=== PATIENT | female | born 1940 | race Caucasian/White ===

== ENCOUNTER 2016-07-23 12:18 | Emergency (ER) | payer MEDICARE ==
[2016-07-23] MEDS ORDERED: DUONEB 0.5-3 MG/3 ml Neb IH ONE ×2 (12:34→12:40)
--- NOTE | 2016-07-23 12:44 | ERPHSYRPT ---
- History of Present Illness Time Seen by Provider: 07/23/16 12:30 Source: patient Exam Limitations: clinical condition Patient Subjective Stated Complaint: PT REPORTS HER COPD BEGAN ACTING UP THIS AM -REPORTS INCREASED SOB-DENIES FEVER-STATES SHE HAS HEAVINESS IN HER CHEST WHEN SHE ATTEMPTS TO DEEP BREATH Triage Nursing Assessment: PT PINK WARM ET DRY-SLIGHT RETRATRACTIONS NOTED- TIGHT WHEEZES NOTED-NO COUGH NOTED-INCREASED WORK OF BREATHING NOTED WITH AMBULATION TO ED ROOM Physician History: PATIENT COMPLAINS OF DYSPNEA, X 2 DAYS, CHEST HEAVINESS UPON INSPIRATION. DENIES FEVER, CHILLS. HAS OCCASIONAL COUGH. Timing/Duration: yesterday Activities at Onset: activity Severity of Dyspnea-Max: moderate Severity of Dyspnea-Current: moderate Possible Cause: occasional episodes Modifying Factors: Improves With: activity Associated Symptoms: constant, cough (pain upon inspiration) International travel in last 2 weeks: No Allergies/Adverse Reactions: cephalexin monohydrate [From Keflex] Allergy (Mild, Verified 07/23/16 12:38) Nausea oxycodone HCl [From OxyContin] Allergy (Mild, Verified 07/23/16 12:38) Nausea and Vomiting DIZZY codeine Allergy (Verified 07/23/16 12:38) Nausea and Vomiting iodine Allergy (Verified 07/23/16 12:38) Home Medications: Albuterol Sulfate [Proair Hfa] 2 puffs IH Q2H/PRN PRN 01/29/16 [History] Cetirizine HCl 10 mg PO DAILY 01/29/16 [History] Fluticasone/Vilanterol [Breo Ellipta 100-25 Mcg INH] 1 each IH DAILY 01/29/16 [ History] Lorazepam 0.5 mg [Ativan 0.5 MG] 0.5 mg PO BID PRN 01/29/16 [History] Potassium Chloride 20 meq PO BID 01/29/16 [History] Hydrochlorothiazide 25 mg [hydroDIURIL 25 MG] 25 mg PO DAILY 05/31/16 [ History] Omeprazole 20 MG [Prilosec 20 mg] 20 mg PO DAILY 07/23/16 [History] Hx Tetanus, Diphtheria Vaccination/Date Given: Yes Hx Influenza Vaccination/Date Given: Yes Hx Pneumococcal Vaccination/Date Given: Yes Immunizations Up to Date: Yes - Review of Systems Constitutional: No Fever, No Chills Eyes: No Symptoms Ears, Nose, & Throat: No Symptoms Respiratory: Cough, Dyspnea Cardiac: No Symptoms, No Chest Pain, No Edema, No Syncope Abdominal/Gastrointestinal: No Symptoms, No Abdominal Pain, No Nausea, No Vomiting, No Diarrhea Genitourinary Symptoms: No Symptoms, No Dysuria Musculoskeletal: No Symptoms, No Back Pain, No Neck Pain Skin: No Symptoms, No Rash Neurological: No Symptoms, No Dizziness, No Focal Weakness, No Sensory Changes Psychological: No Symptoms Endocrine: No Symptoms All Other Systems: Reviewed and Negative - Past Medical History Pertinent Past Medical History: Yes Neurological History: No Pertinent History ENT History: No Pertinent History Cardiac History: No Pertinent History Respiratory History: Asthma, COPD Endocrine Medical History: No Pertinent History Musculoskeletal History: Rheumatoid Arthritis, Other GI Medical History: GERD, Hernia, Other History: No Pertinent History Psycho-Social History: Anxiety Female Reproductive Disorders: No Pertinent History Other Medical History: Hiatal Hernia, History of backpain, scitica pain - Past Surgical History Past Surgical History: Yes Neuro Surgical History: No Pertinent History Cardiac: No Pertinent History Respiratory: No Pertinent History Gastrointestinal: No Pertinent History Genitourinary: No Pertinent History Musculoskeletal: Orthopedic Surgery Female Surgical History: Hysterectomy Other Surgical History: trigger finger, orif of left knee cap, HIATAL HERNIA, in [facility] in October for COPD,bronchitis , pneumonia. Thyroidectomy (left olobe) - Social History Smoking Status: Former smoker How long have you smoked: 1 Exposure to second hand smoke: No Alcohol Use: None Drug Use: none Patient Lives Alone: No Significant Family History: no pertinent family hx - Female History Hx Now: No - Nursing Vital Signs Nursing Vital Signs: Initial Vital Signs Pulse Rate 70 Respiratory Rate 16 Blood Pressure 128/67 Pain Intensity 0 - Physical Exam General Appearance: no apparent distress, alert Eye Exam: PERRL/EOMI Ears, Nose, Throat Exam: hearing grossly normal Neck Exam: normal inspection, supple Respiratory Exam: diminished breath sounds (no wheezes or rhonchi) Cardiovascular/Chest Exam: normal heart sounds, regular rate/rhythm Abdominal/Gastrointestinal Exam: soft, No tenderness, No distention, No mass Extremity Exam: non-tender, normal range of motion, normal inspection, no calf tenderness, no pedal edema Peripheral Pulses Exam: carotid (R): 2+, carotid (L): 2+, femoral (R): 2+, femoral (L): 2+, dorsalis-pedis (R): 2+, dorsalis-pedis (L): 2+ Neurologic Exam: alert, oriented x 3, cooperative, group art supervisor II-XII nml as tested, sensation nml, No motor deficits Skin Exam: normal color, warm, No dry SpO2 Interpretation: normal SpO2: 99 Oxygen Delivery: Room Air - Course EKG Interpreted by Me: RATE, Sinus Tach, NORMAL AXIS, Non-specific ST Changes - Radiology Exams Chest X-ray Interpretation: Negative, No Infiltrates Ordered Tests: Active Orders 24 hr Category Date Time Status Plate Preparer STAT Care 07/23/16 12:40 Active EKG-ER Only STAT Care 07/23/16 12:40 Active IV Insertion STAT Care 07/23/16 12:40 Active Oxygen-ED Only NASAL CANNULA 2 lpm Care 07/23/16 12:40 Active CHEST 1 VIEW (PORTABLE) Stat Exams 07/23/16 12:41 Completed BLOOD CULTURE Stat Lab 07/23/16 12:55 Received BMP Stat Lab 07/23/16 12:30 Completed CBC W DIFF Stat Lab 07/23/16 12:30 Completed TROPONIN Stat Lab 07/23/16 12:30 Completed Peak Expiratory Flow Rate ONCE RT 07/23/16 12:49 Completed Respiratory Nebulizer STAT RT 07/23/16 12:43 Completed Medication Summary Generic Name Dose Route Start Last Admin Trade Name Freq PRN Reason Stop Dose Admin Sodium Chloride 1,000 mls @ 100 mls/hr 07/23/16 12:45 07/23/16 12:51 Sodium Chloride 0.9% 1000 Ml IV 08/22/16 12:44 100 mls/hr .Q10H PRISCILLA Administration Discontinued Medications Generic Name Dose Route Start Last Admin Trade Name Freq PRN Reason Stop Dose Admin Albuterol/Ipratropium Confirm 07/23/16 12:34 Duoneb 0.5-3 Mg/3 Ml Neb Administered 07/23/16 12:35 Dose 3 ml IH .STK-MED ONE Albuterol/Ipratropium 3 ml 07/23/16 12:40 07/23/16 12:47 Duoneb 0.5-3 Mg/3 Ml Neb IH 07/23/16 12:41 3 ml STAT ONE Administration Sodium Chloride Confirm 07/23/16 12:48 Sodium Chloride 0.9% 1000 Ml Administered 07/23/16 12:49 Dose 1,000 mls @ ud .ROUTE .STK-MED ONE Levofloxacin/Dextrose 100 mls @ 100 mls/hr 07/23/16 13:42 07/23/16 13:52 Levaquin 500mg/100ml D5w IV 07/23/16 14:41 100 mls/hr STAT ONE Administration Levofloxacin/Dextrose Confirm 07/23/16 13:47 Levaquin 500mg/100ml D5w Administered 07/23/16 13:48 Dose 100 mls @ ud IV .STK-MED ONE Methylprednisolone Sodium Succinate 125 mg 07/23/16 13:42 07/23/16 13:53 Solu-Medrol 125 Mg IV 07/23/16 13:43 125 mg STAT ONE Administration Methylprednisolone Sodium Succinate Confirm 07/23/16 13:47 Solu-Medrol 125 Mg Administered 07/23/16 13:48 Dose 125 mg .ROUTE .STK-MED ONE Lab/Rad Data: Laboratory Result Diagrams 07/23/16 12:30 07/23/16 12:30 Laboratory Results 07/23/16 07/23/16 Range/Units 12:30 12:30 WBC 6.5 (4.0-10.5) K/mm3 RBC 4.89 (4.1-5.4) M/mm3 Hgb 14.4 (12.0-16.0) gm/dl Hct 41.5 (35-47) % MCV 84.9 (78-100) fl MCH 29.4 (26-32) pg MCHC 34.7 (32-36) g/dl RDW 12.8 (11.5-14.0) % Plt Count 213 (150-450) K/mm3 MPV 10.7 H (6-9.5) fl Gran % 65.8 (36.0-66.0) % Lymphocytes % 19.7 L (24.0-44.0) % Monocytes % 11.5 (0.0-12.0) % Eosinophils % 2.8 (0.00-5.0) % Basophils % 0.2 (0.0-0.4) % Basophils # 0.01 (0-0.4) Sodium 139 (136-145) mEq/L Potassium 3.4 L (3.5-5.1) mEq/L Chloride 101 (98-107) mEq/L Carbon Dioxide 29.4 (21-32) mEq/L Anion Gap 12.0 (5-15) MEQ/L BUN 16 (9-20) mg/dL Creatinine 0.79 (0.55-1.30) mg/dl Estimated GFR > 60 ML/MIN Glucose 121 H (70-110) MG/DL Calcium 9.4 (8.5-10.1) mg/dL Troponin I < 0.017 (0.000-0.056) ng/ml - Progress Progress: improved Progress Note: 07/23/16 15:01 IV NORMAL SALINE 100ML/HR, DUONEB AEROSOL TX, LEVAQUIN 500MG IVPB, INITIALLY REFUSED SOLUMEDROL 125MG IV Blood Culture(s) Obtained: Yes Antibiotics given: Yes (levaquin 500mg IVPB) Counseled pt/family regarding: lab results, diagnosis, need for follow-up, rad results - Departure Time of Disposition: 15:10 Departure Disposition: Home Clinical Impression: EXACERBATION COPD Condition: Stable Critical Care Time: No Additional Instructions: PREDNISONE 40MG DAILY FOR 4 DAYS. ANTIBIOTIC LEVAQUIN 500MG DAILY FOR 10 DAYS. CONTINUE AEROSOL TREATMENTS EVERY 4 HOURS NEEDED. CONSULT YOUR FAMILY PHYSICIAN IN 4-6 DAYS FOR EVALUATION Prescriptions: Levofloxacin [Levaquin] 500 mg PO DAILY #10 tablet Prednisone 20 mg [Deltasone 20 mg] 20 tablet PO DAILY #8 tablet
[2016-07-23] MEDS ORDERED: Sodium Chloride 0.9% 1000 ML 1,000 ML IV SCH (12:45)
[2016-07-23] MEDS ORDERED: Sodium Chloride 0.9% 1000 ML 1,000 ML ONE (12:48)
--- NOTE | 2016-07-23 12:58 | XRAY ---
Indication: Cough Comparison: June 01, 2016 Portable chest again demonstrates a few calcified granulomas. Remaining heart and lungs normal. Bony thorax intact again with mild osteopenia and degenerative changes. Impression: Stable nonacute chest with chronic features.
[2016-07-23 13:01] LABS: BASOPHIL % 0.2 % (0.0-0.4); Eosinophil % 2.8 % (0.00-5.0); Granulocytes % 65.8 % (36.0-66.0); Lymphocytes % 19.7 % (24.0-44.0); Mean Cell Volume 84.9 fl (78-100); Mean Corpuscular Hemoglobin 29.4 pg (26-32); Mean Platelet Volume 10.7 fl (6-9.5); Monocytes % 11.5 % (0.0-12.0); Platelet Count 213 K/mm3 (150-450); Red Blood Count 4.89 M/mm3 (4.1-5.4); Red Cell Distribution Width 12.8 % (11.5-14.0); White Blood Count 6.5 K/mm3 (4.0-10.5)
[2016-07-23 13:36] LABS: BLOOD UREA NITROGEN 16 mg/dL (9-20); CHLORIDE 101 mEq/L (98-107); Carbon Dioxide 29.4 mEq/L (21-32); Glucose 121 MG/DL (70-110); Potassium 3.4 mEq/L (3.5-5.1); SODIUM 139 mEq/L (136-145)
[2016-07-23] MEDS ORDERED: solu-MEDROL 125 MG IV ONE (13:42)
[2016-07-23] MEDS ORDERED: Levaquin 500MG/100ML D5W 100 ML IV ONE ×2 (13:42→13:47)
[2016-07-23] MEDS ORDERED: solu-MEDROL 125 MG ONE (13:47)
[2016-07-23 14:01] LABS: TROPONIN < 0.017 ng/ml (0.000-0.056)
[2016-07-23 15:45] VITALS: BP 124/62; PULSE 76; O2SAT 98
== END 2016-07-23 15:46 | disposition home or self-care (01) ==
LOC: ED 12:18
DX: J44.1 Chronic obstructive pulmonary disease with (acute) exacerbation (principal); R07.89 Other chest pain; R05 Cough; R06.02 Shortness of breath; Z79.899 Other long term (current) drug therapy
CPT/HCPCS: 36000; 36415; 71010; 80048; 84484; 85025; 87040; 93005; 93041; 94150; 94640; 96360; 96361; 96365; 96374; 99283; J1956; J2930

== ENCOUNTER 2016-07-31 20:27 | Emergency (ER) | payer MEDICARE ==
[2016-07-31] MEDS ORDERED: Zithromax 500 MG/ 250 ML NaCl Premix 250 ML IV ONE (20:29)
[2016-07-31] MEDS ORDERED: Xopenex 1.25 MG/0.5 ML UD NEBULE IH ONE ×2 (20:29→20:44)
[2016-07-31] MEDS ORDERED: Sodium Chloride 0.9% 1000 ML 1,000 ML IV SCH (20:30)
[2016-07-31] MEDS ORDERED: Nitrostat 0.4 MG (ED) SL ONE ×2 (20:31→20:42)
[2016-07-31] MEDS ORDERED: BABY ASPIRIN 81 MG CHEW PO ONE (20:31)
[2016-07-31] MEDS ORDERED: Valium 5 MG PO ONE (20:32)
[2016-07-31] MEDS ORDERED: BABY ASPIRIN 81 MG CHEW ONE (20:42)
[2016-07-31] MEDS ORDERED: Sodium Chloride 0.9% 1000 ML 1,000 ML ONE (20:43)
[2016-07-31] MEDS ORDERED: Valium 5 MG ONE (20:43)
[2016-07-31] MEDS ORDERED: Sodium Chloride 3 ML UD NEBULES IH ONE (20:44)
--- NOTE | 2016-07-31 21:02 | ERPHSYRPT ---
- History of Present Illness Time Seen by Provider: 07/31/16 20:27 Source: patient, other (N.N.) Exam Limitations: no limitations Patient Subjective Stated Complaint: pt states she has been short of breath for 2 weeks and it has worsened the last 2 days. states she has a hiatal hernia that she feels is causing the sob. Triage Nursing Assessment: pt alert and oriented. answers questions approp. respirations nonlabored. lungs diminished, coarse on lt. skin pink warm and dry. heart rate 74, sinus rhythm on monitor. Physician History: FOR THE PAST 2 WEEKS PT HAS HAD SHORTNESS OF AIR WORSE IN THE PAST 2 DAYS WITH LOWER MID CHEST PRESSURE FOR THE PAST 2 DAYS AND TODAY COUGH PRODUCTIVE OF CLEAR PHLEGM. PT DENIES DIAPHORESIS, NAUSEA, VOMITING, DIARRHEA, FEVER. Allergies/Adverse Reactions: cephalexin monohydrate [From Keflex] Allergy (Mild, Verified 07/31/16 20:40) Nausea oxycodone HCl [From OxyContin] Allergy (Mild, Verified 07/31/16 20:40) Nausea and Vomiting DIZZY codeine Allergy (Verified 07/31/16 20:40) Nausea and Vomiting iodine Allergy (Verified 07/31/16 20:40) Home Medications: Albuterol Sulfate [Proair Hfa] 2 puffs IH Q2H/PRN PRN 01/29/16 [History] Cetirizine HCl 10 mg PO DAILY 01/29/16 [History] Fluticasone/Vilanterol [Breo Ellipta 100-25 Mcg INH] 1 each IH DAILY 01/29/16 [ History] Lorazepam 0.5 mg [Ativan 0.5 MG] 0.5 mg PO BID PRN 01/29/16 [History] Potassium Chloride 20 meq PO BID 01/29/16 [History] Hydrochlorothiazide 25 mg [hydroDIURIL 25 MG] 25 mg PO DAILY 05/31/16 [ History] Omeprazole 20 MG [Prilosec 20 mg] 20 mg PO DAILY 07/23/16 [History] Hx Tetanus, Diphtheria Vaccination/Date Given: Yes Hx Influenza Vaccination/Date Given: Yes Hx Pneumococcal Vaccination/Date Given: Yes Immunizations Up to Date: Yes - Review of Systems Constitutional: No Fever Respiratory: Cough, Dyspnea Cardiac: Other (CHEST PRESSURE) Abdominal/Gastrointestinal: No Abdominal Pain, No Nausea, No Vomiting, No Diarrhea Neurological: No Headache Endocrine: No Excessive Sweating All Other Systems: Reviewed and Negative - Past Medical History Pertinent Past Medical History: Yes Neurological History: No Pertinent History ENT History: No Pertinent History Cardiac History: No Pertinent History Respiratory History: Asthma, COPD Endocrine Medical History: No Pertinent History Musculoskeletal History: Rheumatoid Arthritis, Other GI Medical History: GERD, Hernia, Other History: No Pertinent History Psycho-Social History: Anxiety Female Reproductive Disorders: No Pertinent History Other Medical History: Hiatal Hernia, History of backpain, scitica pain - Past Surgical History Past Surgical History: Yes Neuro Surgical History: No Pertinent History Cardiac: No Pertinent History Respiratory: No Pertinent History Gastrointestinal: No Pertinent History Genitourinary: No Pertinent History Musculoskeletal: Orthopedic Surgery Female Surgical History: Hysterectomy Other Surgical History: trigger finger, orif of left knee cap, HIATAL HERNIA, in [facility] in October for COPD,bronchitis , pneumonia. Thyroidectomy (left olobe) - Social History Smoking Status: Former smoker How long have you smoked: 1 Exposure to second hand smoke: Yes Alcohol Use: None Drug Use: none Patient Lives Alone: No Significant Family History: no pertinent family hx - Female History Hx Last Menstrual Period: post Hx Now: No - Nursing Vital Signs Nursing Vital Signs: Initial Vital Signs Temperature 98.6 F Temperature Source Oral Pulse Rate 84 Respiratory Rate 18 Blood Pressure 139/70 Pain Intensity 0 - Physical Exam General Appearance: alert, anxiety Eye Exam: PERRL/EOMI, eyes nml inspection Ears, Nose, Throat Exam: hearing grossly normal, pharyngeal erythema (MILD) Neck Exam: normal inspection Respiratory Exam: wheezing (MINIMAL EXPIRATORY WHEEZING OVER POSTERIOR COBOS), No respiratory distress Cardiovascular/Chest Exam: normal heart sounds Abdominal/Gastrointestinal Exam: soft, normal bowel sounds Extremity Exam: normal inspection, No pedal edema Peripheral Pulses Exam: dorsalis-pedis (R): 2+, dorsalis-pedis (L): 2+ Neurologic Exam: alert, cooperative Skin Exam: warm, dry SpO2 Interpretation: normal SpO2: 98 Oxygen Delivery: Room Air - Course Nursing assessment & vital signs reviewed: Yes EKG Interpreted by Me: RATE (73), Sinus Rhythm, NORMAL AXIS, NORMAL INTERVALS - Radiology Exams Chest X-ray Interpretation: Interpreted by me, No Pneumonia Ordered Tests: Active Orders 24 hr Category Date Time Status Industrial Insulator STAT Care 07/31/16 20:29 Active EKG-ER Only STAT Care 07/31/16 20:29 Active IV Insertion STAT Care 07/31/16 20:29 Active Oxygen-ED Only NASAL CANNULA 2 lpm Care 07/31/16 20:29 Active Pulse Oximetry (ED) STAT Care 07/31/16 20:29 Active CHEST 1 VIEW (PORTABLE) Stat Exams 07/31/16 20:30 Taken AMYLASE Stat Lab 07/31/16 21:00 Completed BLOOD CULTURE Stat Lab 07/31/16 21:00 Received CBC W DIFF Stat Lab 07/31/16 20:30 Completed CMP Stat Lab 07/31/16 20:30 Completed CULTURE, THROAT Stat Lab 07/31/16 20:45 Received CULTURE,SPUTUM Stat Lab 07/31/16 20:30 Uncollected LIPASE Stat Lab 07/31/16 21:00 Completed MAGNESIUM Stat Lab 07/31/16 20:30 Completed [place] Screen Stat Lab 07/31/16 20:30 Completed NT PRO BNP Stat Lab 07/31/16 20:30 Completed STREP SCREEN-BETA A Stat Lab 07/31/16 20:45 Completed TROPONIN Stat Lab 07/31/16 20:30 Completed UA Stat Lab 07/31/16 20:31 Ordered Respiratory Nebulizer STAT RT 07/31/16 20:56 Completed Medication Summary Generic Name Dose Route Start Last Admin Trade Name Freq PRN Reason Stop Dose Admin Azithromycin 250 mls @ 125 mls/hr 07/31/16 20:29 07/31/16 20:47 Zithromax 500 Mg/ 250 Ml Nacl Premix IV 07/31/16 22:28 125 mls/hr STAT ONE Administration Sodium Chloride 1,000 mls @ 100 mls/hr 07/31/16 20:30 07/31/16 20:47 Sodium Chloride 0.9% 1000 Ml IV 08/30/16 20:29 100 mls/hr .Q10H PRISCILLA Administration Magnesium Oxide 400 mg 07/31/16 22:00 Mag-Ox 400 PO 08/30/16 21:59 BID PRISCILLA Potassium Chloride 40 meq 08/01/16 10:00 Potassium Chl 40 Meq/30 Ml Oral Solution PO 08/31/16 09:59 DAILY PRISCILLA Discontinued Medications Generic Name Dose Route Start Last Admin Trade Name Freq PRN Reason Stop Dose Admin Al Hydrox/Mg Hydrox/Simethicone Confirm 07/31/16 21:45 Maalox Es 30 Ml Unit Dose Administered 07/31/16 21:46 Dose 30 ml .ROUTE .STK-MED ONE Aspirin 324 mg 07/31/16 20:31 07/31/16 20:47 Baby Aspirin 81 Mg Chew PO 07/31/16 20:32 324 mg STAT ONE Administration Aspirin Confirm 07/31/16 20:42 Baby Aspirin 81 Mg Chew Administered 07/31/16 20:43 Dose 324 mg .ROUTE .STK-MED ONE Belladonna Alkaloids/Phenobarbital 60 ml 07/31/16 21:37 07/31/16 21:48 Gi Cocktail 60ml (Belladonn/Phenobarb/Lidoc* PO 07/31/16 21:38 60 ml STAT ONE Administration Belladonna Alkaloids/Phenobarbital Confirm 07/31/16 21:45 Donnatol Liquid Administered 07/31/16 21:46 Dose 64.8 mg .ROUTE .STK-MED ONE Diazepam 5 mg 07/31/16 20:32 07/31/16 20:48 Valium 5 Mg PO 07/31/16 20:33 5 mg STAT ONE Administration Diazepam Confirm 07/31/16 20:43 Valium 5 Mg Administered 07/31/16 20:44 Dose 5 mg .ROUTE .STK-MED ONE Sodium Chloride Confirm 07/31/16 20:43 Sodium Chloride 0.9% 1000 Ml Administered 07/31/16 20:44 Dose 1,000 mls @ ud .ROUTE .STK-MED ONE Levalbuterol HCl 1.25 mg 07/31/16 20:29 07/31/16 20:56 Xopenex 1.25 Mg/0.5 Ml Ud Nebule IH 07/31/16 20:30 1.25 mg STAT ONE Administration Levalbuterol HCl Confirm 07/31/16 20:44 Xopenex 1.25 Mg/0.5 Ml Ud Nebule Administered 07/31/16 20:45 Dose 1.25 mg IH .STK-MED ONE Lidocaine HCl Confirm 07/31/16 21:44 Xylocaine Hcl Viscous * Administered 07/31/16 21:45 Dose 20 ml .ROUTE .STK-MED ONE Nitroglycerin 0.4 mg 07/31/16 20:31 07/31/16 20:46 Nitrostat 0.4 Mg (Ed) SL 07/31/16 20:32 0.4 mg STAT ONE Administration Nitroglycerin Confirm 07/31/16 20:42 Nitrostat 0.4 Mg (Ed) Administered 07/31/16 20:43 Dose 0.4 mg SL .STK-MED ONE Sodium Chloride Confirm 07/31/16 20:44 Sodium Chloride 3 Ml Ud Nebules Administered 07/31/16 20:45 Dose 3 ml IH .STK-MED ONE Lab/Rad Data: Laboratory Result Diagrams 07/31/16 20:30 07/31/16 20:30 Laboratory Results 07/31/16 07/31/16 07/31/16 Range/Units 21:00 20:45 20:30 WBC (4.0-10.5) K/mm3 RBC (4.1-5.4) M/mm3 Hgb (12.0-16.0) gm/dl Hct (35-47) % MCV (78-100) fl MCH (26-32) pg MCHC (32-36) g/dl RDW (11.5-14.0) % Plt Count (150-450) K/mm3 MPV (6-9.5) fl Gran % (36.0-66.0) % Lymphocytes % (24.0-44.0) % Monocytes % (0.0-12.0) % Eosinophils % (0.00-5.0) % Basophils % (0.0-0.4) % Basophils # (0-0.4) Sodium (136-145) mEq/L Potassium (3.5-5.1) mEq/L Chloride (98-107) mEq/L Carbon Dioxide (21-32) mEq/L Anion Gap (5-15) MEQ/L BUN (9-20) mg/dL Creatinine (0.55-1.30) mg/dl Estimated GFR ML/MIN Glucose (70-110) MG/DL Calcium (8.5-10.1) mg/dL Magnesium (1.8-2.4) mg/dL Total Bilirubin (0.2-1.0) mg/dL AST (15-37) U/L ALT (12-78) U/L Alkaline Phosphatase (46-116) U/L Troponin I (0.000-0.056) ng/ml NT-Pro-B Natriuret Pep (0-125) pg/ml Serum Total Protein (6.4-8.2) gm/dL Albumin (3.4-5.0) g/dL Amylase 38 (25-115) U/L Lipase 182 (73-393) U/L Monoscreen POSITIVE (Negative) Streptococcus Screen NEGATIVE (Negative) 07/31/16 07/31/16 Range/Units 20:30 20:30 WBC 8.1 (4.0-10.5) K/mm3 RBC 4.76 (4.1-5.4) M/mm3 Hgb 14.3 (12.0-16.0) gm/dl Hct 40.2 (35-47) % MCV 84.5 (78-100) fl MCH 30.0 (26-32) pg MCHC 35.6 (32-36) g/dl RDW 12.5 (11.5-14.0) % Plt Count 248 (150-450) K/mm3 MPV 10.8 H (6-9.5) fl Gran % 57.4 (36.0-66.0) % Lymphocytes % 26.1 (24.0-44.0) % Monocytes % 13.2 H (0.0-12.0) % Eosinophils % 3.2 (0.00-5.0) % Basophils % 0.1 (0.0-0.4) % Basophils # 0.01 (0-0.4) Sodium 137 (136-145) mEq/L Potassium 3.1 L (3.5-5.1) mEq/L Chloride 100 (98-107) mEq/L Carbon Dioxide 29.2 (21-32) mEq/L Anion Gap 11.1 (5-15) MEQ/L BUN 17 (9-20) mg/dL Creatinine 1.01 (0.55-1.30) mg/dl Estimated GFR 57 ML/MIN Glucose 113 H (70-110) MG/DL Calcium 8.6 (8.5-10.1) mg/dL Magnesium 1.6 L (1.8-2.4) mg/dL Total Bilirubin 0.4 (0.2-1.0) mg/dL AST 13 L (15-37) U/L ALT 15 (12-78) U/L Alkaline Phosphatase 74 (46-116) U/L Troponin I < 0.017 (0.000-0.056) ng/ml NT-Pro-B Natriuret Pep < 5.0 (0-125) pg/ml Serum Total Protein 6.5 (6.4-8.2) gm/dL Albumin 3.5 (3.4-5.0) g/dL Amylase (25-115) U/L Lipase (73-393) U/L Monoscreen (Negative) Streptococcus Screen (Negative) - Departure Time of Disposition: 22:13 Departure Disposition: Home Clinical Impression: SHORTNESS OF AIR, CHEST PRESSURE, HYPOMAGNESEMIA, HYPOKALEMIA, ANXIETY, COPD, RA, ASTHMA, GERD, HIATAL HERNIA, INFECTIOUS MONONUCLEOSIS Condition: Fair Critical Care Time: No Referrals: JODY GONGORA [Primary Care Provider] - Instructions: Chest Pain, Hiatal Hernia, Mononucleosis Additional Instructions: FOLLOW UP WITH PRIVATE DOCTOR TOMORROW.
[2016-07-31 21:18] LABS: BASOPHIL % 0.1 % (0.0-0.4); Eosinophil % 3.2 % (0.00-5.0); Granulocytes % 57.4 % (36.0-66.0); Lymphocytes % 26.1 % (24.0-44.0); Mean Cell Volume 84.5 fl (78-100); Mean Platelet Volume 10.8 fl (6-9.5); Monocytes % 13.2 % (0.0-12.0); Platelet Count 248 K/mm3 (150-450); Red Blood Count 4.76 M/mm3 (4.1-5.4); Red Cell Distribution Width 12.5 % (11.5-14.0); White Blood Count 8.1 K/mm3 (4.0-10.5)
[2016-07-31] MEDS ORDERED: GI COCKTAIL 60ML (Belladonn/Phenobarb/Lidoc PO ONE (21:37)
[2016-07-31 21:40] LABS: LIPASE 182 U/L (73-393)
[2016-07-31] MEDS ORDERED: XYLOCAINE HCl Viscous ONE (21:44)
[2016-07-31] MEDS ORDERED: Donnatol Liquid ONE (21:45)
[2016-07-31] MEDS ORDERED: MAALOX ES 30 ML UNIT DOSE ONE (21:45)
[2016-07-31 21:52] LABS: ALBUMIN 3.5 g/dL (3.4-5.0); ALKALINE PHOSPHATASE 74 U/L (46-116); ANION GAP 11.1 MEQ/L (5-15); BILIRUBIN,TOTAL 0.4 mg/dL (0.2-1.0); BLOOD UREA NITROGEN 17 mg/dL (9-20); CHLORIDE 100 mEq/L (98-107); Carbon Dioxide 29.2 mEq/L (21-32); Glucose 113 MG/DL (70-110); MAGNESIUM 1.6 mg/dL (1.8-2.4); Potassium 3.1 mEq/L (3.5-5.1); SGOT/AST 13 U/L (15-37); SGPT/ALT 15 U/L (12-78); SODIUM 137 mEq/L (136-145); Total Protein 6.5 gm/dL (6.4-8.2)
[2016-07-31 21:53] LABS: TROPONIN < 0.017 ng/ml (0.000-0.056)
[2016-07-31] MEDS ORDERED: MAG-OX 400 PO SCH (22:00)
[2016-07-31 22:16] VITALS: O2SAT 97
[2016-07-31] MEDS ORDERED: POTASSIUM CHL 40 MEQ/30 ML ORAL SOLUTION ONE (22:24)
[2016-07-31] MEDS ORDERED: MAG-OX 400 ONE (22:24)
[2016-07-31 23:00] VITALS: BP 138/77; PULSE 83
--- NOTE | 2016-08-01 08:46 | XRAY ---
Indication: Chest pain. Comparison: July 23, 2016 Portable chest demonstrates new minimal left base atelectasis/scarring. Remaining lungs clear again with a few calcified granulomas. Heart is not enlarged. Impression: Nonacute chest.
[2016-08-01] MEDS ORDERED: POTASSIUM CHL 40 MEQ/30 ML ORAL SOLUTION PO SCH (10:00)
== END 2016-07-31 23:10 | disposition home or self-care (01) ==
LOC: ED 20:27
DX: R06.02 Shortness of breath (principal); R07.89 Other chest pain; E83.42 Hypomagnesemia; E87.6 Hypokalemia; F41.9 Anxiety disorder, unspecified; J44.9 Chronic obstructive pulmonary disease, unspecified; M06.9 Rheumatoid arthritis, unspecified; J45.909 Unspecified asthma, uncomplicated; K21.9 Gastro-esophageal reflux disease without esophagitis; K44.9 Diaphragmatic hernia without obstruction or gangrene; B27.90 Infectious mononucleosis, unspecified without complication
CPT/HCPCS: 36000; 36415; 71010; 80053; 82150; 83690; 83735; 83880; 84484; 85025; 86308; 87040; 87070; 87430; 87631; 93005; 93041; 94640; 96360; 96361; 96365; 96366; 99284; J0456

== ENCOUNTER 2016-08-11 23:32 | Emergency (ER) | payer MEDICARE ==
[2016-08-11] MEDS ORDERED: Phenergan 25 MG INJ IV ONE (23:40)
[2016-08-11] MEDS ORDERED: Hydromorphone 1 mg/ml Ampule IV ONE (23:40)
[2016-08-11] MEDS ORDERED: GI COCKTAIL 60ML (Belladonn/Phenobarb/Lidoc PO ONE (23:42)
[2016-08-11] MEDS ORDERED: Sodium Chloride 0.9% 1000 ML 1,000 ML IV SCH (23:45)
--- NOTE | 2016-08-11 23:48 | ERPHSYRPT ---
- History of Present Illness Time Seen by Provider: 08/11/16 23:35 Source: patient Exam Limitations: no limitations Physician History: TODAY EARLY AFTERNOON PT STARTED WITH EPIGASTRIC BURNING, DRY NOSE AND SHORTNESS OF AIR; DENIES FEVER, VOMITING, DIARRHEA, CHEST PAIN. PT IS SCHEDULED FOR AN EGD AT [facility] BY DR SARMIENTO IN 5 DAYS TO EVALUATE FOR POSSIBLE HIATAL HERNIA SURGERY. Allergies/Adverse Reactions: cephalexin monohydrate [From Keflex] Allergy (Mild, Verified 08/11/16 23:47) Nausea oxycodone HCl [From OxyContin] Allergy (Mild, Verified 08/11/16 23:47) Nausea and Vomiting DIZZY codeine Allergy (Verified 08/11/16 23:47) Nausea and Vomiting iodine Allergy (Verified 08/11/16 23:47) Home Medications: Albuterol Sulfate [Proair Hfa] 2 puffs IH Q2H/PRN PRN 01/29/16 [History] Cetirizine HCl 10 mg PO DAILY 01/29/16 [History] Fluticasone/Vilanterol [Breo Ellipta 100-25 Mcg INH] 1 each IH DAILY 01/29/16 [ History] Lorazepam 0.5 mg [Ativan 0.5 MG] 0.5 mg PO BID PRN 01/29/16 [History] Potassium Chloride 20 meq PO BID 01/29/16 [History] Hydrochlorothiazide 25 mg [hydroDIURIL 25 MG] 25 mg PO DAILY 05/31/16 [ History] Omeprazole 20 MG [Prilosec 20 mg] 20 mg PO DAILY 07/23/16 [History] Hx Tetanus, Diphtheria Vaccination/Date Given: Yes Hx Influenza Vaccination/Date Given: Yes Hx Pneumococcal Vaccination/Date Given: Yes - Review of Systems Constitutional: No Fever Ears, Nose, & Throat: Other (DRY NOSE) Respiratory: Dyspnea Cardiac: No Chest Pain Abdominal/Gastrointestinal: Abdominal Pain (EPIGASTRIC BURNING), No Vomiting, No Diarrhea Skin: No Rash Endocrine: No Excessive Sweating All Other Systems: Reviewed and Negative - Past Medical History Pertinent Past Medical History: Yes Neurological History: No Pertinent History ENT History: No Pertinent History Cardiac History: No Pertinent History Respiratory History: Asthma, COPD Endocrine Medical History: No Pertinent History Musculoskeletal History: Rheumatoid Arthritis, Other GI Medical History: GERD, Hernia, Other History: No Pertinent History Psycho-Social History: Anxiety Female Reproductive Disorders: No Pertinent History Other Medical History: Hiatal Hernia, History of backpain, scitica pain - Past Surgical History Past Surgical History: Yes Neuro Surgical History: No Pertinent History Cardiac: No Pertinent History Respiratory: No Pertinent History Gastrointestinal: No Pertinent History Genitourinary: No Pertinent History Musculoskeletal: Orthopedic Surgery Female Surgical History: Hysterectomy Other Surgical History: trigger finger, orif of left knee cap, HIATAL HERNIA, [facility] for COPD,bronchitis , pneumonia. Thyroidectomy (left olobe) - Social History Smoking Status: Former smoker How long have you smoked: 1 Exposure to second hand smoke: Yes Alcohol Use: None Drug Use: none Patient Lives Alone: No Significant Family History: no pertinent family hx - Female History Hx Now: No - Nursing Vital Signs Nursing Vital Signs: Initial Vital Signs Temperature 97.6 F Temperature Source Oral Pulse Rate 62 Respiratory Rate 16 Blood Pressure [] 161/75 Pain Intensity 0 - Physical Exam General Appearance: alert Eye Exam: PERRL/EOMI Ears, Nose, Throat Exam: pharynx normal, moist mucous membranes Neck Exam: normal inspection Respiratory Exam: lungs clear Cardiovascular Exam: normal heart sounds Gastrointestinal/Abdomen Exam: soft, normal bowel sounds, No guarding Back Exam: normal range of motion Extremity Exam: normal inspection, No pedal edema Neurologic Exam: alert, cooperative Skin Exam: warm, dry - Course Nursing assessment & vital signs reviewed: Yes EKG Interpreted by Me: RATE ([id number]), Sinus Robert, NORMAL AXIS, NORMAL INTERVALS - Radiology Exams Chest X-ray Interpretation: Interpreted by me, No Pneumonia Ordered Tests: Active Orders 24 hr Category Date Time Status EKG-ER Only STAT Care 08/11/16 23:48 Active IV Insertion STAT Care 08/11/16 23:40 Active CHEST 1 VIEW (PORTABLE) Stat Exams 08/11/16 23:40 Taken AMYLASE Stat Lab 08/11/16 23:48 Completed CBC W DIFF Stat Lab 08/11/16 23:48 Completed CMP Stat Lab 08/11/16 23:48 Completed LIPASE Stat Lab 08/11/16 23:48 Completed TROPONIN Stat Lab 08/11/16 23:48 Completed UA W/ MICROSCOPIC Stat Lab 08/11/16 01:42 Completed Medication Summary Generic Name Dose Route Start Last Admin Trade Name Freq PRN Reason Stop Dose Admin Sodium Chloride 1,000 mls @ 100 mls/hr 08/11/16 23:45 08/11/16 23:59 Sodium Chloride 0.9% 1000 Ml IV 09/10/16 23:44 100 mls/hr .Q10H PRISCILLA Administration Discontinued Medications Generic Name Dose Route Start Last Admin Trade Name Shelly PRN Reason Stop Dose Admin Al Hydrox/Mg Hydrox/Simethicone Confirm 08/11/16 23:52 Maalox Es 30 Ml Unit Dose Administered 08/11/16 23:53 Dose 30 ml .ROUTE .STK-MED ONE Belladonna Alkaloids/Phenobarbital 60 ml 08/11/16 23:42 08/12/16 00:00 Gi Cocktail 60ml (Belladonn/Phenobarb/Lidoc* PO 08/11/16 23:43 60 ml STAT ONE Administration Belladonna Alkaloids/Phenobarbital Confirm 08/11/16 23:52 Donnatol Liquid Administered 08/11/16 23:53 Dose 64.8 mg .ROUTE .STK-MED ONE Hydromorphone HCl 0.5 mg 08/11/16 23:40 08/12/16 00:02 Dilaudid 1 Mg/Ml Injection IV 08/11/16 23:41 0.5 mg STAT ONE Administration Hydromorphone HCl Confirm 08/11/16 23:50 Dilaudid 1 Mg/Ml Injection Administered 08/11/16 23:51 Dose 1 mg .ROUTE .STK-MED ONE Sodium Chloride Confirm 08/11/16 23:52 Sodium Chloride 0.9% 1000 Ml Administered 08/11/16 23:53 Dose 1,000 mls @ ud .ROUTE .STK-MED ONE Lidocaine HCl Confirm 08/11/16 23:51 Xylocaine Hcl Viscous * Administered 08/11/16 23:52 Dose 20 ml .ROUTE .STK-MED ONE Potassium Chloride 20 meq 08/12/16 01:09 08/12/16 01:27 Klor Con 10 Meq PO 08/12/16 01:10 20 meq STAT ONE Administration Potassium Chloride Confirm 08/12/16 01:26 Klor Con 10 Meq Administered 08/12/16 01:27 Dose 20 meq PO .STK-MED ONE Promethazine HCl 12.5 mg 08/11/16 23:40 08/12/16 00:00 Phenergan 25 Mg Inj IV 08/11/16 23:41 12.5 mg STAT ONE Administration Promethazine HCl Confirm 08/11/16 23:50 Phenergan 25 Mg Inj Administered 08/11/16 23:51 Dose 25 mg .ROUTE .STK-MED ONE Lab/Rad Data: Laboratory Result Diagrams 08/11/16 23:48 08/11/16 23:48 Laboratory Results 08/11/16 08/11/16 08/11/16 Range/Units 23:48 23:48 01:42 WBC 6.7 (4.0-10.5) K/mm3 RBC 4.91 (4.1-5.4) M/mm3 Hgb 14.6 (12.0-16.0) gm/dl Hct 41.0 (35-47) % MCV 83.5 (78-100) fl MCH 29.7 (26-32) pg MCHC 35.6 (32-36) g/dl RDW 12.7 (11.5-14.0) % Plt Count 228 (150-450) K/mm3 MPV 10.3 H (6-9.5) fl Gran % 59.5 (36.0-66.0) % Lymphocytes % 25.7 (24.0-44.0) % Monocytes % 11.3 (0.0-12.0) % Eosinophils % 3.1 (0.00-5.0) % Basophils % 0.4 (0.0-0.4) % Basophils # 0.03 (0-0.4) Sodium 138 (136-145) mEq/L Potassium 3.3 L (3.5-5.1) mEq/L Chloride 98 (98-107) mEq/L Carbon Dioxide 26.9 (21-32) mEq/L Anion Gap 16.2 H (5-15) MEQ/L BUN 10 (9-20) mg/dL Creatinine 0.84 (0.55-1.30) mg/dl Estimated GFR > 60 ML/MIN Glucose 112 H (70-110) MG/DL Calcium 9.1 (8.5-10.1) mg/dL Total Bilirubin 0.6 (0.2-1.0) mg/dL AST 20 (15-37) U/L ALT 20 (12-78) U/L Alkaline Phosphatase 74 (46-116) U/L Troponin I < 0.017 (0.000-0.056) ng/ml Serum Total Protein 7.0 (6.4-8.2) gm/dL Albumin 4.0 (3.4-5.0) g/dL Amylase 49 (25-115) U/L Lipase 213 (73-393) U/L Ur Collection Type CLEAN CATCH Urine Color YELLOW (YELLOW) Urine Appearance SLIGHTLY CLOUDY (CLEAR) Urine pH 6.0 (5-6) Ur Specific [place] >=1.030 (1.005-1.025) Urine Protein NEGATIVE (Negative) Urine Glucose (UA) NEGATIVE (NEGATIVE) mg/dL Urine Ketones TRACE (NEGATIVE) Urine Nitrite NEGATIVE (NEGATIVE) Urine Bilirubin NEGATIVE (NEGATIVE) Urine Urobilinogen 0.2 (0-1) mg/dL Urine WBC (Auto) TRACE (NEGATIVE) Urine RBC (Auto) NEGATIVE (0-5) Marlo/ul Urine Microscopic RBC 2-5 (0-2) /HPF Urine Microscopic WBC 5-10 (0-5) /HPF Ur Epithelial Cells MODERATE (FEW) /HPF Urine Bacteria FEW (NEGATIVE) /HPF Urine Mucus MANY (NEGATIVE) /HPF Specimen Received 08/11/16 0145 - Departure Time of Disposition: 02:09 Departure Disposition: Home Clinical Impression: ABDOMINAL PAIN, DYSPNEA, UTI, HIATAL HERNIA Condition: Fair Critical Care Time: No Instructions: Urinary Tract Infection (UTI), Shortness of Breath, Hiatal Hernia Additional Instructions: FOLLOW UP WITH DR SARMIENTO PRE-SCHEDULED ON 08/16/16.
[2016-08-11] MEDS ORDERED: Phenergan 25 MG INJ ONE (23:50)
[2016-08-11] MEDS ORDERED: Hydromorphone 1 mg/ml Ampule ONE (23:50)
[2016-08-11] MEDS ORDERED: XYLOCAINE HCl Viscous ONE (23:51)
[2016-08-11 23:52] LABS: BASOPHIL % 0.4 % (0.0-0.4); Eosinophil % 3.1 % (0.00-5.0); Granulocytes % 59.5 % (36.0-66.0); Lymphocytes % 25.7 % (24.0-44.0); Mean Cell Volume 83.5 fl (78-100); Mean Corpuscular Hemoglobin 29.7 pg (26-32); Mean Platelet Volume 10.3 fl (6-9.5); Monocytes % 11.3 % (0.0-12.0); Platelet Count 228 K/mm3 (150-450); Red Blood Count 4.91 M/mm3 (4.1-5.4); Red Cell Distribution Width 12.7 % (11.5-14.0); White Blood Count 6.7 K/mm3 (4.0-10.5)
[2016-08-11] MEDS ORDERED: Sodium Chloride 0.9% 1000 ML 1,000 ML ONE (23:52)
[2016-08-11] MEDS ORDERED: Donnatol Liquid ONE (23:52)
[2016-08-11] MEDS ORDERED: MAALOX ES 30 ML UNIT DOSE ONE (23:52)
[2016-08-12 00:16] LABS: ALKALINE PHOSPHATASE 74 U/L (46-116); ANION GAP 16.2 MEQ/L (5-15); BILIRUBIN,TOTAL 0.6 mg/dL (0.2-1.0); BLOOD UREA NITROGEN 10 mg/dL (9-20); CHLORIDE 98 mEq/L (98-107); Carbon Dioxide 26.9 mEq/L (21-32); Glucose 112 MG/DL (70-110); LIPASE 213 U/L (73-393); Potassium 3.3 mEq/L (3.5-5.1); SGOT/AST 20 U/L (15-37); SGPT/ALT 20 U/L (12-78); SODIUM 138 mEq/L (136-145)
[2016-08-12 00:19] LABS: TROPONIN < 0.017 ng/ml (0.000-0.056)
[2016-08-12] MEDS ORDERED: Klor Con 10 MEQ PO ONE ×2 (01:09→01:26)
[2016-08-12 01:55] LABS: COMPLETE URINE MICROSCOPIC? YES; Collection Type CLEAN CATCH
[2016-08-12 01:56] LABS: Bacteria FEW /HPF (NEGATIVE); Epithelial Cells MODERATE /HPF (FEW); Mucus MANY /HPF (NEGATIVE)
[2016-08-12] MEDS ORDERED: GI COCKTAIL 60ML (Belladonn/Phenobarb/Lidoc PO ONE (02:10)
[2016-08-12] MEDS ORDERED: Macrobid 100MG Capsule PO ONE (02:10)
[2016-08-12] MEDS ORDERED: Macrobid 100MG Capsule ONE (02:17)
[2016-08-12] MEDS ORDERED: XYLOCAINE HCl Viscous ONE (02:18)
[2016-08-12] MEDS ORDERED: MAALOX ES 30 ML UNIT DOSE ONE (02:18)
[2016-08-12] MEDS ORDERED: Donnatol Liquid ONE (02:19)
[2016-08-12 02:44] VITALS: BP 127/89; PULSE 63; O2SAT 98
--- NOTE | 2016-08-12 09:02 | XRAY ---
Indication: Chest pain and short of breath. Comparison: July 31, 2016. Portable chest again hyperinflated with a few calcified granulomas. No focal infiltrate, consolidation, or large effusion. Heart and mediastinal structures are stable and within normal limits. Impression: Nonacute hyperinflated chest.
== END 2016-08-12 03:01 | disposition home or self-care (01) ==
LOC: ED 23:32
DX: R06.00 Dyspnea, unspecified (principal); N39.0 Urinary tract infection, site not specified; K44.9 Diaphragmatic hernia without obstruction or gangrene; Z79.899 Other long term (current) drug therapy
CPT/HCPCS: 36415; 71010; 80053; 81000; 82150; 83690; 84484; 85025; 87086; 93005; 96360; 96361; 96374; 96375; 99284; J1170; J2550

== ENCOUNTER 2016-08-25 20:35 | Emergency (ER) | payer MEDICARE ==
[2016-08-25] MEDS ORDERED: Valium 5 MG PO ONE (21:17)
--- NOTE | 2016-08-25 21:17 | ERPHSYRPT ---
- History of Present Illness Time Seen by Provider: 08/25/16 21:02 Source: patient Exam Limitations: no limitations Patient Subjective Stated Complaint: Pt C/O shortness of breath since 1800 tonight with wheezing. Pt has hx of similar recently. Sts has used her inhalers and nebulizers several times prior to arrival. Pt sts hx similar. Triage Nursing Assessment: Pt alert, oriented, answers all questions appropriately. SPO2 97% 2LO2. Speaking in 4-5 bursts. Skin pink, moist, warm. Resps non-labored. 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 Physician History: SINCE 1830 TONIGHT PT HAS HAD SHORTNESS OF BREATH, WHEEZING, TIGHTNESS IN THE CHEST AND NAUSEA; DENIES ABDOMINAL PAIN, FEVER, SORE THROAT, VOMITING. Allergies/Adverse Reactions: cephalexin monohydrate [From Keflex] Allergy (Mild, Verified 08/25/16 20:43) Nausea oxycodone HCl [From OxyContin] Allergy (Mild, Verified 08/25/16 20:43) Nausea and Vomiting DIZZY codeine Allergy (Verified 08/25/16 20:43) Nausea and Vomiting iodine Allergy (Verified 08/25/16 20:43) Home Medications: Albuterol Sulfate [Proair Hfa] 2 puffs IH Q2H/PRN PRN 01/29/16 [History] Cetirizine HCl 10 mg PO DAILY 01/29/16 [History] Fluticasone/Vilanterol [Breo Ellipta 100-25 Mcg INH] 1 each IH DAILY 01/29/16 [ History] Lorazepam 0.5 mg [Ativan 0.5 MG] 0.5 mg PO BID PRN 01/29/16 [History] Potassium Chloride 20 meq PO BID 01/29/16 [History] Hydrochlorothiazide 25 mg [hydroDIURIL 25 MG] 25 mg PO DAILY 05/31/16 [ History] Omeprazole 20 MG [Prilosec 20 mg] 20 mg PO DAILY 07/23/16 [History] Hx Tetanus, Diphtheria Vaccination/Date Given: Yes Hx Influenza Vaccination/Date Given: Yes Hx Pneumococcal Vaccination/Date Given: Yes Immunizations Up to Date: No - Review of Systems Constitutional: No Fever Respiratory: Dyspnea, Wheezing Cardiac: Other (CHEST TIGHTNESS) Abdominal/Gastrointestinal: Nausea, No Abdominal Pain, No Vomiting Neurological: No Headache Endocrine: No Excessive Sweating All Other Systems: Reviewed and Negative - Past Medical History Pertinent Past Medical History: Yes Neurological History: No Pertinent History ENT History: No Pertinent History Cardiac History: No Pertinent History Respiratory History: Asthma, COPD Endocrine Medical History: No Pertinent History Musculoskeletal History: Rheumatoid Arthritis, Other GI Medical History: GERD, Hernia, Other History: No Pertinent History Psycho-Social History: Anxiety Female Reproductive Disorders: No Pertinent History Other Medical History: Hiatal Hernia, History of backpain, scitica pain - Past Surgical History Past Surgical History: Yes Neuro Surgical History: No Pertinent History Cardiac: No Pertinent History Respiratory: No Pertinent History Gastrointestinal: No Pertinent History Genitourinary: No Pertinent History Musculoskeletal: Orthopedic Surgery Female Surgical History: Hysterectomy Other Surgical History: trigger finger, orif of left knee cap, HIATAL HERNIA, in [facility] in October for COPD,bronchitis , pneumonia. Thyroidectomy (left olobe) - Social History Smoking Status: Former smoker How long have you smoked: 1 Exposure to second hand smoke: No Alcohol Use: None Drug Use: none Patient Lives Alone: No Significant Family History: no pertinent family hx - Female History Hx Now: No - Nursing Vital Signs Nursing Vital Signs: Initial Vital Signs Temperature 99.0 F Temperature Source Oral Pulse Rate 75 Respiratory Rate 17 Blood Pressure [] 154/82 Pain Intensity 0 - Physical Exam General Appearance: alert, anxiety Eye Exam: PERRL/EOMI Ears, Nose, Throat Exam: hearing grossly normal, normal pharynx Neck Exam: normal inspection Respiratory Exam: wheezing (MINIMAL EXPRIATORY WHEEZING OVER POSTERIOR BASES.) Cardiovascular/Chest Exam: normal heart sounds Abdominal/Gastrointestinal Exam: soft, normal bowel sounds Extremity Exam: normal inspection, No pedal edema Peripheral Pulses Exam: dorsalis-pedis (R): 2+, dorsalis-pedis (L): 2+ Neurologic Exam: alert, cooperative Skin Exam: warm, dry SpO2 Interpretation: normal SpO2: 98 Oxygen Delivery: Room Air - Course Nursing assessment & vital signs reviewed: Yes EKG Interpreted by Me: RATE (91), Sinus Rhythm, NORMAL AXIS, NORMAL INTERVALS - Radiology Exams Chest X-ray Interpretation: Interpreted by me, No Pneumonia Ordered Tests: Active Orders 24 hr Category Date Time Status Wedding Photographer STAT Care 08/25/16 21:18 Active EKG-ER Only STAT Care 08/25/16 21:18 Active IV Insertion STAT Care 08/25/16 21:18 Active Oxygen-ED Only NASAL CANNULA 2 lpm Care 08/25/16 21:18 Active Pulse Oximetry (ED) STAT Care 08/25/16 21:18 Active CHEST 1 VIEW (PORTABLE) Stat Exams 08/25/16 21:19 Taken CBC W DIFF Stat Lab 08/25/16 21:22 Completed CMP Stat Lab 08/25/16 21:22 Completed MAGNESIUM Stat Lab 08/25/16 21:22 Completed NT PRO BNP Stat Lab 08/25/16 21:22 Completed TROPONIN Stat Lab 08/25/16 21:22 Completed Respiratory Nebulizer STAT RT 08/25/16 21:25 Completed Medication Summary Generic Name Dose Route Start Last Admin Trade Name Freq PRN Reason Stop Dose Admin Sodium Chloride 1,000 mls @ 100 mls/hr 08/25/16 21:30 08/25/16 21:30 Sodium Chloride 0.9% 1000 Ml IV 09/24/16 21:29 100 mls/hr .Q10H PRISCILLA Administration Magnesium Oxide 400 mg 08/26/16 10:00 Mag-Ox 400 PO 09/25/16 09:59 BID PRISCILLA Discontinued Medications Generic Name Dose Route Start Last Admin Trade Name Freq PRN Reason Stop Dose Admin Diazepam 10 mg 08/25/16 21:17 08/25/16 21:30 Valium 5 Mg PO 08/25/16 21:18 10 mg STAT ONE Administration Diazepam Confirm 08/25/16 21:29 Valium 5 Mg Administered 08/25/16 21:30 Dose 10 mg .ROUTE .STK-MED ONE Sodium Chloride Confirm 08/25/16 21:29 Sodium Chloride 0.9% 1000 Ml Administered 08/25/16 21:30 Dose 1,000 mls @ ud .ROUTE .STK-MED ONE Levalbuterol HCl 1.25 mg 08/25/16 21:18 08/25/16 21:28 Xopenex 1.25 Mg/0.5 Ml Ud Nebule IH 08/25/16 21:19 1.25 mg STAT ONE Administration Levalbuterol HCl Confirm 08/25/16 21:26 Xopenex 1.25 Mg/0.5 Ml Ud Nebule Administered 08/25/16 21:27 Dose 1.25 mg IH .STK-MED ONE Sodium Chloride Confirm 08/25/16 21:26 Sodium Chloride 3 Ml Ud Nebules Administered 08/25/16 21:27 Dose 3 ml IH .STK-MED ONE Lab/Rad Data: Laboratory Result Diagrams 08/25/16 21:22 08/25/16 21:22 Laboratory Results 08/25/16 08/25/16 Range/Units 21:22 21:22 WBC 6.5 (4.0-10.5) K/mm3 RBC 4.78 (4.1-5.4) M/mm3 Hgb 14.5 (12.0-16.0) gm/dl Hct 40.6 (35-47) % MCV 84.9 (78-100) fl MCH 30.3 (26-32) pg MCHC 35.7 (32-36) g/dl RDW 12.8 (11.5-14.0) % Plt Count 231 (150-450) K/mm3 MPV 10.9 H (6-9.5) fl Gran % 55.3 (36.0-66.0) % Lymphocytes % 26.5 (24.0-44.0) % Monocytes % 12.5 H (0.0-12.0) % Eosinophils % 5.5 H (0.00-5.0) % Basophils % 0.2 (0.0-0.4) % Basophils # 0.01 (0-0.4) Sodium 136 (136-145) mEq/L Potassium 3.6 (3.5-5.1) mEq/L Chloride 100 (98-107) mEq/L Carbon Dioxide 26.8 (21-32) mEq/L Anion Gap 13.0 (5-15) MEQ/L BUN 13 (9-20) mg/dL Creatinine 0.87 (0.55-1.30) mg/dl Estimated GFR > 60 ML/MIN Glucose 90 (70-110) MG/DL Calcium 8.8 (8.5-10.1) mg/dL Magnesium 1.7 L (1.8-2.4) mg/dL Total Bilirubin 0.3 (0.2-1.0) mg/dL AST 22 (15-37) U/L ALT 17 (12-78) U/L Alkaline Phosphatase 83 (46-116) U/L Troponin I < 0.017 (0.000-0.056) ng/ml NT-Pro-B Natriuret Pep 174 H (0-125) pg/ml Serum Total Protein 6.7 (6.4-8.2) gm/dL Albumin 4.1 (3.4-5.0) g/dL - Departure Time of Disposition: 22:31 Departure Disposition: Home Clinical Impression: CHEST TIGHTNESS, COPD, ANXIETY, MILD HYPOMAGNESEMIA Condition: Fair Critical Care Time: No Referrals: JODY GONGORA [Primary Care Provider] - Instructions: Chest Pain Additional Instructions: FOLLOW UP WITH PRIVATE DOCTOR TOMORROW.
[2016-08-25] MEDS ORDERED: Xopenex 1.25 MG/0.5 ML UD NEBULE IH ONE ×2 (21:18→21:26)
[2016-08-25 21:26] LABS: BASOPHIL % 0.2 % (0.0-0.4); Eosinophil % 5.5 % (0.00-5.0); Granulocytes % 55.3 % (36.0-66.0); Lymphocytes % 26.5 % (24.0-44.0); Mean Cell Volume 84.9 fl (78-100); Mean Corpuscular Hemoglobin 30.3 pg (26-32); Mean Platelet Volume 10.9 fl (6-9.5); Monocytes % 12.5 % (0.0-12.0); Platelet Count 231 K/mm3 (150-450); Red Blood Count 4.78 M/mm3 (4.1-5.4); Red Cell Distribution Width 12.8 % (11.5-14.0); White Blood Count 6.5 K/mm3 (4.0-10.5)
[2016-08-25] MEDS ORDERED: Sodium Chloride 3 ML UD NEBULES IH ONE (21:26)
[2016-08-25] MEDS ORDERED: Sodium Chloride 0.9% 1000 ML 1,000 ML ONE (21:29)
[2016-08-25] MEDS ORDERED: Valium 5 MG ONE (21:29)
[2016-08-25] MEDS ORDERED: Sodium Chloride 0.9% 1000 ML 1,000 ML IV SCH (21:30)
[2016-08-25 21:41] LABS: ALBUMIN 4.1 g/dL (3.4-5.0); ALKALINE PHOSPHATASE 83 U/L (46-116); BILIRUBIN,TOTAL 0.3 mg/dL (0.2-1.0); BLOOD UREA NITROGEN 13 mg/dL (9-20); CHLORIDE 100 mEq/L (98-107); Carbon Dioxide 26.8 mEq/L (21-32); Glucose 90 MG/DL (70-110); MAGNESIUM 1.7 mg/dL (1.8-2.4); Potassium 3.6 mEq/L (3.5-5.1); SGOT/AST 22 U/L (15-37); SGPT/ALT 17 U/L (12-78); SODIUM 136 mEq/L (136-145); Total Protein 6.7 gm/dL (6.4-8.2)
[2016-08-25 21:42] LABS: TROPONIN < 0.017 ng/ml (0.000-0.056)
[2016-08-25] MEDS ORDERED: MAG-OX 400 ONE (23:13)
[2016-08-25 23:22] VITALS: BP 137/65; PULSE 76; O2SAT 100
--- NOTE | 2016-08-26 09:36 | XRAY ---
Indication: Wheezing. Comparison: August 11, 2016. Portable chest remains hyperinflated and clear with a few calcified granulomas. Heart is not enlarged. Vascularity normal. No new/acute findings. Impression: Stable nonacute hyperinflated chest.
[2016-08-26] MEDS ORDERED: MAG-OX 400 PO SCH (10:00)
== END 2016-08-25 23:22 | disposition home or self-care (01) ==
LOC: ED 20:35
DX: R07.89 Other chest pain (principal); J44.9 Chronic obstructive pulmonary disease, unspecified; F41.9 Anxiety disorder, unspecified; E83.42 Hypomagnesemia; R11.0 Nausea
CPT/HCPCS: 36000; 36415; 71010; 80053; 83735; 83880; 84484; 85025; 93005; 93041; 94640; 96360; 96361; 99284

== ENCOUNTER 2016-09-06 23:13 | Emergency (ER) | payer MEDICARE ==
[2016-09-06] MEDS ORDERED: PROVENTIL 2.5 MG/3 ML NEB IH ONE ×2 (23:16→23:21)
[2016-09-06] MEDS ORDERED: Ativan 2 MG/1 ML VIAL IV ONE (23:17)
[2016-09-06] MEDS ORDERED: Ativan 2 MG/1 ML VIAL ONE (23:26)
[2016-09-06] MEDS ORDERED: Sodium Chloride 0.9% 1000 ML 1,000 ML ONE (23:26)
--- NOTE | 2016-09-06 23:26 | ERPHSYRPT ---
- History of Present Illness Time Seen by Provider: 09/06/16 23:16 Source: patient, EMS (duoneb and solu medrol 125 given with oxygen pre-arrival) Physician History: CC: short of breath Hx: 75 y/o patient of Dr Monge with hx of asthma, abdominal hernia, anxiety. She reports short of breath for the past 4 hours. EMS gave her neb. She feels hot and has dry mouth. Extremely anxious for EMS. She has hx of severe anxiety in the past with frequent visits. No pain. She has tightness all over. Timing/Duration: today (4 hours) Severity: moderate Allergies/Adverse Reactions: cephalexin monohydrate [From Keflex] Allergy (Mild, Verified 08/25/16 20:43) Nausea oxycodone HCl [From OxyContin] Allergy (Mild, Verified 08/25/16 20:43) Nausea and Vomiting DIZZY codeine Allergy (Verified 08/25/16 20:43) Nausea and Vomiting iodine Allergy (Verified 08/25/16 20:43) Home Medications: Albuterol Sulfate [Proair Hfa] 2 puffs IH Q2H/PRN PRN 01/29/16 [History] Cetirizine HCl 10 mg PO DAILY 01/29/16 [History] Fluticasone/Vilanterol [Breo Ellipta 100-25 Mcg INH] 1 each IH DAILY 01/29/16 [ History] Lorazepam 0.5 mg [Ativan 0.5 MG] 0.5 mg PO BID PRN 01/29/16 [History] Potassium Chloride 20 meq PO BID 01/29/16 [History] Hydrochlorothiazide 25 mg [hydroDIURIL 25 MG] 25 mg PO DAILY 05/31/16 [ History] Omeprazole 20 MG [Prilosec 20 mg] 20 mg PO DAILY 07/23/16 [History] Hx Tetanus, Diphtheria Vaccination/Date Given: Yes Hx Influenza Vaccination/Date Given: Yes Hx Pneumococcal Vaccination/Date Given: Yes - Review of Systems Constitutional: Malaise, No Fever, No Chills Eyes: No Symptoms Ears, Nose, & Throat: No Symptoms Respiratory: Dyspnea, No Cough Cardiac: No Chest Pain Abdominal/Gastrointestinal: No Abdominal Pain, No Nausea, No Vomiting Skin: No Rash Neurological: No Focal Weakness, No Headache All Other Systems: Reviewed and Negative - Past Medical History Pertinent Past Medical History: Yes Neurological History: No Pertinent History ENT History: No Pertinent History Cardiac History: No Pertinent History Respiratory History: Asthma, COPD Endocrine Medical History: No Pertinent History Musculoskeletal History: Rheumatoid Arthritis, Other GI Medical History: GERD, Hernia, Other History: No Pertinent History Psycho-Social History: Anxiety Female Reproductive Disorders: No Pertinent History Other Medical History: Hiatal Hernia, History of backpain, sciatica pain - Past Surgical History Past Surgical History: Yes Neuro Surgical History: No Pertinent History Cardiac: No Pertinent History Respiratory: No Pertinent History Gastrointestinal: No Pertinent History Genitourinary: No Pertinent History Musculoskeletal: Orthopedic Surgery Female Surgical History: Hysterectomy Other Surgical History: trigger finger, orif of left knee cap, HIATAL HERNIA, in [facility] in October for COPD,bronchitis , pneumonia. Thyroidectomy (left olobe) - Social History Smoking Status: Former smoker How long have you smoked: 1 Exposure to second hand smoke: No Alcohol Use: None Drug Use: none Patient Lives Alone: No Significant Family History: no pertinent family hx - Female History Hx Now: No - Nursing Vital Signs Nursing Vital Signs: Initial Vital Signs Temperature 98.5 F Temperature Source Oral Pulse Rate 86 Respiratory Rate 18 Blood Pressure [Left Arm] 120/71 Pain Intensity 0 - Physical Exam General Appearance: alert, other (anxious and tachypenic on arrival) Eye Exam: PERRL/EOMI Ears, Nose, Throat Exam: normal ENT inspection, moist mucous membranes Neck Exam: normal inspection, non-tender, supple Respiratory Exam: normal breath sounds (no wheezes, no rales) Cardiovascular Exam: regular rate/rhythm Gastrointestinal/Abdomen Exam: soft, No tenderness, No distention Extremity Exam: normal inspection, normal range of motion Neurologic Exam: alert, oriented x 3, cooperative, sensation nml, No motor deficits Skin Exam: warm, dry, No rash SpO2 Interpretation: normal SpO2: 100 Oxygen Delivery: Room Air - Course Nursing assessment & vital signs reviewed: Yes EKG Interpreted by Me: RATE (90), Sinus Rhythm, NORMAL AXIS, NORMAL INTERVALS ( QTc 458), NORMAL QRS, NORMAL ST-T - Radiology Exams cxr X-ray Interpretation: Reviewed by me, Negative Ordered Tests: Active Orders 24 hr Category Date Time Status Booking Officer STAT Care 09/06/16 23:16 Active EKG-ER Only STAT Care 09/06/16 23:16 Active IV Insertion STAT Care 09/06/16 23:16 Active Pulse Oximetry (ED) STAT Care 09/06/16 23:16 Active CHEST 1 VIEW (PORTABLE) Stat Exams 09/06/16 23:16 Taken ARTERIAL BLOOD GASES Urgent Lab 09/06/16 23:20 Completed CBC W DIFF Stat Lab 09/06/16 23:25 Completed CMP Stat Lab 09/06/16 23:25 Completed Lactic Acid Urgent Lab 09/06/16 23:20 Completed MAGNESIUM Stat Lab 09/06/16 23:25 Completed NT PRO BNP Stat Lab 09/06/16 23:25 Completed Respiratory Nebulizer STAT RT 09/06/16 23:17 Completed Medication Summary Generic Name Dose Route Start Last Admin Trade Name Freq PRN Reason Stop Dose Admin Sodium Chloride 1,000 mls @ 50 mls/hr 09/06/16 23:30 09/06/16 23:35 Sodium Chloride 0.9% 1000 Ml IV 10/06/16 23:29 50 mls/hr .Q20H PRISCILLA Administration Discontinued Medications Generic Name Dose Route Start Last Admin Trade Name Freq PRN Reason Stop Dose Admin Albuterol Sulfate 2.5 mg 09/06/16 23:16 09/06/16 23:22 Proventil 2.5 Mg/3 Ml Neb IH 09/06/16 23:17 2.5 mg STAT ONE Administration Albuterol Sulfate Confirm 09/06/16 23:21 Proventil 2.5 Mg/3 Ml Neb Administered 09/06/16 23:22 Dose 2.5 mg IH .STK-MED ONE Sodium Chloride Confirm 09/06/16 23:26 Sodium Chloride 0.9% 1000 Ml Administered 09/06/16 23:27 Dose 1,000 mls @ ud .ROUTE .STK-MED ONE Lorazepam 1 mg 09/06/16 23:17 09/06/16 23:35 Ativan 2 Mg/1 Ml Vial IV 09/06/16 23:18 1 mg STAT ONE Administration Lorazepam Confirm 09/06/16 23:26 Ativan 2 Mg/1 Ml Vial Administered 09/06/16 23:27 Dose 2 mg .ROUTE .STK-MED ONE Lab/Rad Data: Laboratory Result Diagrams 09/06/16 23:25 02/23/17 23:25 Laboratory Results 09/06/16 09/06/16 09/06/16 Range/Units 23:25 23:25 23:20 WBC 10.1 (4.0-10.5) K/mm3 RBC 4.87 (4.1-5.4) M/mm3 Hgb 14.9 (12.0-16.0) gm/dl Hct 41.0 (35-47) % MCV 84.2 (78-100) fl MCH 30.6 (26-32) pg MCHC 36.3 H (32-36) g/dl RDW 12.9 (11.5-14.0) % Plt Count 245 (150-450) K/mm3 MPV 10.5 H (6-9.5) fl Gran % 49.8 (36.0-66.0) % Lymphocytes % 34.3 (24.0-44.0) % Monocytes % 11.7 (0.0-12.0) % Eosinophils % 3.9 (0.00-5.0) % Basophils % 0.3 (0.0-0.4) % Basophils # 0.03 (0-0.4) Puncture Site RIGHT BRACHIAL pCO2 49 H (35-45) mmHg pO2 69 L (75-100) mmHg Base Excess 1.4 (-2.0-2.0) O2 Saturation 93.2 L (94-100) g/dF ABG pH 7.36 (7.35-7.45) ABG HCO3 27.7 (22-28) ABG O2 Sat (Measured) 95.8 (95-100) % Dougie Test YES A-a Gradient 19 a/A Ratio 0.78 Hemoglobin 14.8 Carboxyhemoglobin 1.3 (0.0-6.9) % THgb Methemoglobin 1.4 (1.4-1.5) % Potassium 3.5 3.7 (3.5-5.1) Temperature 37.0 C POC O2 Flow Rate 21 % Sodium 136 (136-145) mEq/L Chloride 101 (98-107) mEq/L Carbon Dioxide 28.1 (21-32) mEq/L Anion Gap 10.1 (5-15) MEQ/L BUN 11 (9-20) mg/dL Creatinine 0.80 (0.55-1.30) mg/dl Estimated GFR > 60 ML/MIN Glucose 100 (70-110) MG/DL Lactic Acid 0.8 (0.4-2.0) Calcium 8.9 (8.5-10.1) mg/dL Magnesium 1.7 L (1.8-2.4) mg/dL Total Bilirubin 0.3 (0.2-1.0) mg/dL AST 21 (15-37) U/L ALT 21 (12-78) U/L Alkaline Phosphatase 86 (46-116) U/L NT-Pro-B Natriuret Pep 176 H (0-125) pg/ml Serum Total Protein 7.1 (6.4-8.2) gm/dL Albumin 4.0 (3.4-5.0) g/dL - Progress Progress Note: 09/06/16 23:25 Appears more anxious. Ativan and nebs given. Labs ordered. 09/07/16 00:32 Much better. Son at bedside. Lungs clear now and she does not want steroids. Will release with follow up instructions. Counseled pt/family regarding: lab results, diagnosis, need for follow-up, rad results - Departure Time of Disposition: 00:33 Departure Disposition: Home Clinical Impression: Anxiety, shortness of breath resolved Condition: Stable Critical Care Time: No Referrals: JODY MONGE [Primary Care Provider] - Instructions: Shortness of Breath Additional Instructions: Follow up with Dr monge. Stay with joseph strauss. Take your normal medications as prescribed.
[2016-09-06] MEDS ORDERED: Sodium Chloride 0.9% 1000 ML 1,000 ML IV SCH (23:30)
[2016-09-06 23:31] LABS: A-aADO2 19; ALLEN TEST OK? YES; ARTERIAL BLD GAS O2 SATURATION 95.8 % (95-100); ARTERIAL BLOOD GAS BASE EXCESS 1.4 (-2.0-2.0); ARTERIAL BLOOD GAS FIO2 21 %; ARTERIAL BLOOD GAS PO2 69 mmHg (75-100); ARTERIAL BLOOD GAS pH 7.36 (7.35-7.45); Lactic Acid 0.8 (0.4-2.0)
[2016-09-06 23:33] LABS: BASOPHIL % 0.3 % (0.0-0.4); Eosinophil % 3.9 % (0.00-5.0); Granulocytes % 49.8 % (36.0-66.0); Lymphocytes % 34.3 % (24.0-44.0); Mean Cell Volume 84.2 fl (78-100); Mean Corpuscular Hemoglobin 30.6 pg (26-32); Mean Platelet Volume 10.5 fl (6-9.5); Monocytes % 11.7 % (0.0-12.0); Platelet Count 245 K/mm3 (150-450); Red Blood Count 4.87 M/mm3 (4.1-5.4); Red Cell Distribution Width 12.9 % (11.5-14.0); White Blood Count 10.1 K/mm3 (4.0-10.5)
[2016-09-07 00:01] LABS: ALKALINE PHOSPHATASE 86 U/L (46-116); ANION GAP 10.1 MEQ/L (5-15); BILIRUBIN,TOTAL 0.3 mg/dL (0.2-1.0); BLOOD UREA NITROGEN 11 mg/dL (9-20); CHLORIDE 101 mEq/L (98-107); Carbon Dioxide 28.1 mEq/L (21-32); Glucose 100 MG/DL (70-110); MAGNESIUM 1.7 mg/dL (1.8-2.4); Potassium 3.5 mEq/L (3.5-5.1); SGOT/AST 21 U/L (15-37); SGPT/ALT 21 U/L (12-78); SODIUM 136 mEq/L (136-145); Total Protein 7.1 gm/dL (6.4-8.2)
[2016-09-07 01:15] VITALS: BP 114/71; PULSE 80; O2SAT 94
--- NOTE | 2016-09-07 18:36 | XRAY ---
Exam: AP portable chest film from 2356 hrs. on 09/06/2016. Comparison: AP upright portable chest film from 08/25/2016. Indication: Dyspnea. Findings: The transverse heart size is normal. There is mild tortuosity of the descending thoracic aorta. The remainder of the paulie and mediastinal structures appears unremarkable. The lungs are adequately inflated. A stable small calcified granuloma overlies the right midlung zone. No acute air space infiltrates, vascular congestion, pneumothorax, or pleural fluid is seen. There is some convexity of the lower thoracic spine toward the left. Impression: 1. No acute cardiopulmonary process is seen.
== END 2016-09-07 01:15 | disposition home or self-care (01) ==
LOC: ED 23:13
DX: F41.9 Anxiety disorder, unspecified (principal); R06.02 Shortness of breath
CPT/HCPCS: 93041; 96374; 99284; 96360; 96361; 93005; 36415; 83880; 83735; 85025; 80053; 71010; 82803; 82375; 36600; 94640; 83605; A9270; 99283; J2060

== ENCOUNTER 2017-08-30 06:22 | Emergency (ER) | payer MEDICARE ==
[2017-08-30 06:46] VITALS: O2SAT 97
--- NOTE | 2017-08-30 07:01 | ERPHSYRPT ---
- History of Present Illness Source: patient Exam Limitations: no limitations Patient Subjective Stated Complaint: pt states she was short of breath th morning and anxious. Triage Nursing Assessment: pt alert and oriented, asnwers questions approp. pt arrive per ambulance, transfer from ems cot to stretcher per self. skin pink warm and dry. respirations nonlabored with lugns cta. Timing/Duration: today (4:00 this morning), other (patient states she has been on antibiotics since Saturday she received a steroid injection Saturday as well) Severity of Dyspnea-Max: moderate Severity of Dyspnea-Current: mild Possible Cause: occasional episodes Modifying Factors: Improves With: nothing. Worsens With: albuterol inhaler Associated Symptoms: cough, lightheadedness, No constant, No intermittent, No anxiety, No chest pain/discomfort, No edema, No fever, No insomnia, No loss of appetite, No wheezing, No weakness, No ankle swelling, No chills, No hemoptysis , No calf pain, No dizziness, No heaviness, No heart racing, No lightheadedness , No leg swelling, No muscle spasms feet, No muscle spasms hands, No painful breathing, No productive cough, No sweating, No tightness, No tingling face, No tingling hands International travel in last 2 weeks: No Hx Tetanus, Diphtheria Vaccination/Date Given: Yes Hx Influenza Vaccination/Date Given: Yes Hx Pneumococcal Vaccination/Date Given: Yes Immunizations Up to Date: Yes <KENNEDY PRUITT - Last Filed: 08/30/17 06:55> <AKILA LOWERY - Last Filed: 08/30/17 09:31> - History of Present Illness Time Seen by Provider: 08/30/17 06:32 Physician History: 76-year-old white female brought by medics with complaint of shortness of breath since 4:00 this morning patient. States that she has been short of breath since 4:00 this morning she's had an occasional cough she has no chest pain no nausea no vomiting no fevers. Patient states she was seen by her family doctor on Saturday 3 days ago. Past medical history includes asthma, COPD, rheumatoid arthritis, GERD, hernia, anxiety, back pain, sciaticaPast surgical history includes orthopedic surgery, hysterectomy, tubal ligation, blood, trigger finger, little left knee cap orif, hiatal hernia (KENNEDY PRUITT) Allergies/Adverse Reactions: cephalexin monohydrate [From Keflex] Allergy (Mild, Verified 08/30/17 06:46) Nausea oxycodone HCl [From OxyContin] Allergy (Mild, Verified 08/30/17 06:46) Nausea and Vomiting DIZZY codeine Allergy (Verified 08/30/17 06:46) Nausea and Vomiting iodine Allergy (Verified 08/30/17 06:46) Home Medications: Albuterol Sulfate [Proair Hfa] 2 puffs IH Q2H/PRN PRN 01/29/16 [History] Cetirizine HCl 10 mg PO DAILY 01/29/16 [History] Fluticasone/Vilanterol [Breo Ellipta 100-25 Mcg INH] 1 each IH DAILY 01/29/16 [ History] Lorazepam 0.5 mg [Ativan 0.5 MG] 0.5 mg PO BID PRN 01/29/16 [History] Potassium Chloride 20 meq PO BID 01/29/16 [History] Hydrochlorothiazide 25 mg [hydroDIURIL 25 MG] 25 mg PO DAILY 05/31/16 [ History] Omeprazole 20 MG [Prilosec 20 mg] 20 mg PO DAILY 07/23/16 [History] - Review of Systems Constitutional: No Fever, No Chills Eyes: No Symptoms Ears, Nose, & Throat: No Symptoms Respiratory: Cough, Dyspnea, Wheezing Cardiac: No Chest Pain, No Edema, No Syncope Abdominal/Gastrointestinal: No Abdominal Pain, No Nausea, No Vomiting, No Diarrhea Genitourinary Symptoms: No Dysuria Musculoskeletal: No Back Pain, No Neck Pain Skin: No Rash Neurological: No Dizziness, No Focal Weakness, No Sensory Changes Psychological: No Symptoms Endocrine: No Symptoms All Other Systems: Reviewed and Negative <KENNEDY PRUITT - Last Filed: 08/30/17 06:55> - Past Medical History Pertinent Past Medical History: Yes Neurological History: No Pertinent History ENT History: No Pertinent History Cardiac History: No Pertinent History Respiratory History: Asthma, COPD Endocrine Medical History: No Pertinent History Musculoskeletal History: Rheumatoid Arthritis, Other GI Medical History: GERD, Hernia, Other History: No Pertinent History Psycho-Social History: Anxiety Female Reproductive Disorders: No Pertinent History Other Medical History: Hiatal Hernia, History of backpain, sciatica pain - Past Surgical History Past Surgical History: Yes Neuro Surgical History: No Pertinent History Cardiac: No Pertinent History Respiratory: No Pertinent History Gastrointestinal: No Pertinent History Genitourinary: No Pertinent History Musculoskeletal: Orthopedic Surgery Female Surgical History: Hysterectomy Other Surgical History: trigger finger, orif of left knee cap, HIATAL HERNIA, in [facility] in October for COPD,bronchitis , pneumonia. Thyroidectomy (left olobe) - Social History Smoking Status: Never smoker How long have you smoked: 1 Exposure to second hand smoke: No Alcohol Use: None Drug Use: none Patient Lives Alone: No Significant Family History: no pertinent family hx <KENNEDY PRUITT - Last Filed: 08/30/17 06:55> - Physical Exam General Appearance: no apparent distress, alert Eye Exam: PERRL/EOMI Ears, Nose, Throat Exam: hearing grossly normal, normal ENT inspection, normal pharynx, No abnormal TM (R), No abnormal TM (L), No pharyngeal erythema, No tonsillar exudate Neck Exam: normal inspection, supple Respiratory Exam: normal breath sounds, lungs clear, airway intact, No chest tenderness, No respiratory distress, No diminished breath sounds, No accessory muscle use, No prolonged expirations, No crackles/rales, No rhonchi, No wheezing , No pleural rub Cardiovascular/Chest Exam: normal heart sounds, regular rate/rhythm Abdominal/Gastrointestinal Exam: soft, No tenderness, No distention, No mass Extremity Exam: non-tender, normal range of motion, normal inspection, no calf tenderness, no pedal edema Peripheral Pulses Exam: dorsalis-pedis (R): 2+, dorsalis-pedis (L): 2+ Neurologic Exam: alert, oriented x 3, cooperative, teradata architect II-XII nml as tested, sensation nml, No motor deficits Skin Exam: normal color, warm, No dry SpO2 Interpretation: normal (97%) SpO2: 97 Oxygen Delivery: Room Air <KENNEDY PRUITT - Last Filed: 08/30/17 06:55> - Nursing Vital Signs Nursing Vital Signs: Initial Vital Signs Temperature 97.7 F 08/30/17 06:40 Pulse Rate 76 08/30/17 06:40 Respiratory Rate 20 08/30/17 06:40 Blood Pressure 157/101 08/30/17 06:40 O2 Sat by Pulse Oximetry 97 08/30/17 06:40 Pain Scale Pain Intensity 0 - Course Nursing assessment & vital signs reviewed: Yes EKG Interpreted by Me: RATE (76 bpm), Sinus Rhythm, NORMAL AXIS, 1st degree AV Block, Other (EKG: Sinus rhythm, first-degree AV block, 76 bpm, normal axis, no acute ST or T wave changes noted compared to January 31, 2017) <KENNEDY PRUITT - Last Filed: 08/30/17 06:55> - Radiology Exams cxr X-ray Interpretation: Reviewed by me (Mild RLL infiltrate) <AKILA LOWERY - Last Filed: 08/30/17 09:31> Ordered Tests: Active Orders 24 hr Category Date Time Status Convenience [employer] Tech STAT Care 08/30/17 06:54 Active EKG-ER Only STAT Care 08/30/17 06:54 Active IV Insertion STAT Care 08/30/17 06:54 Active Regular Diet Diet 08/30/17 Breakfast Active CHEST 1 VIEW (PORTABLE) Stat Exams 08/30/17 06:54 Completed CBC W DIFF Stat Lab 08/30/17 07:00 Completed CMP Stat Lab 08/30/17 07:00 Completed MAGNESIUM Stat Lab 08/30/17 07:24 Completed NT PRO BNP Stat Lab 08/30/17 07:00 Completed TROPONIN Q3H Lab 08/30/17 07:30 Completed TROPONIN Q3H Lab 08/30/17 10:30 Ordered TROPONIN Q3H Lab 08/30/17 13:30 Ordered TROPONIN Q3H Lab 08/30/17 16:30 Ordered TROPONIN Q3H Lab 08/30/17 19:30 Ordered VENOUS BLOOD GAS Stat Lab 08/30/17 06:54 Completed Medication Summary Generic Name Dose Route Start Last Admin Trade Name Freq PRN Reason Stop Dose Admin Magnesium Sulfate/Dextrose 100 mls @ 100 mls/hr 08/30/17 08:15 08/30/17 08:31 Magnesium 1 Gm / 100 Ml D5w IV 08/30/17 10:14 100 mls/hr Q1H PRISCILLA Administration Discontinued Medications Generic Name Dose Route Start Last Admin Trade Name Freq PRN Reason Stop Dose Admin Hydroxyzine HCl 25 mg 08/30/17 07:24 08/30/17 07:38 Atarax 25 Mg PO 08/30/17 07:25 25 mg STAT ONE Administration Hydroxyzine HCl Confirm 08/30/17 07:38 Atarax 25 Mg Administered 08/30/17 07:39 Dose 25 mg .ROUTE .STK-MED ONE Potassium Bicarbonate 50 meq 08/30/17 07:23 08/30/17 07:38 K-Lyte 25 Meq PO 08/30/17 07:24 50 meq STAT ONE Administration Potassium Bicarbonate Confirm 08/30/17 07:38 K-Lyte 25 Meq Administered 08/30/17 07:39 Dose 50 meq .ROUTE .[facility] ONE Lab/Rad Data: Laboratory Result Diagrams 08/30/17 07:00 08/30/17 07:00 Laboratory Results 08/30/17 08/30/17 08/30/17 Range/Units 07:30 07:24 07:00 WBC (4.0-10.5) K/mm3 RBC (4.1-5.4) M/mm3 Hgb (12.0-16.0) gm/dl Hct (35-47) % MCV (78-100) fl MCH (26-32) pg MCHC (32-36) g/dl RDW (11.5-14.0) % Plt Count (150-450) K/mm3 MPV (6-9.5) fl Gran % (36.0-66.0) % Lymphocytes % (24.0-44.0) % Monocytes % (0.0-12.0) % Eosinophils % (0.00-5.0) % Basophils % (0.0-0.4) % Basophils # (0-0.4) VBG pH (7.32-7.42) VBG pCO2 at Pat Temp (42-55) mm/Hg VBG pO2 at Pat Temp (25-40) mm/Hg VBG HCO3 (22-28) meq/L VBG O2 Sat (Nicole) (95-100) VBG Base Excess (-2.0-2.0) VBG Hemoglobin VBG Carboxyhemoglobin (0.0-6.9) % T HGB POC Potassium (3.5-5.1) Sodium 135 L (136-145) mEq/L Potassium 2.8 L* (3.5-5.1) mEq/L Chloride 95 L (98-107) mEq/L Carbon Dioxide 29.5 (21-32) mEq/L Anion Gap 12.9 (5-15) MEQ/L BUN 14 (9-20) mg/dL Creatinine 0.79 (0.55-1.30) mg/dl Estimated GFR > 60 ML/MIN Glucose 123 H (70-110) MG/DL Calcium 9.4 (8.5-10.1) mg/dL Magnesium 1.6 L (1.8-2.4) mg/dL Total Bilirubin 0.70 (0.2-1.0) mg/dL AST 20 (15-37) U/L ALT 20 (12-78) U/L Alkaline Phosphatase 89 (46-116) U/L Troponin I < 0.017 (0.000-0.056) ng/ml NT-Pro-B Natriuret Pep 53 (0-125) pg/ml Serum Total Protein 7.3 (6.4-8.2) gm/dL Albumin 4.2 (3.4-5.0) g/dL 08/30/17 08/30/17 Range/Units 07:00 06:54 WBC 8.5 (4.0-10.5) K/mm3 RBC 4.98 (4.1-5.4) M/mm3 Hgb 14.7 (12.0-16.0) gm/dl Hct 41.6 (35-47) % MCV 83.5 (78-100) fl MCH 29.5 (26-32) pg MCHC 35.3 (32-36) g/dl RDW 12.6 (11.5-14.0) % Plt Count 245 (150-450) K/mm3 MPV 10.6 H (6-9.5) fl Gran % 69.3 H (36.0-66.0) % Lymphocytes % 18.6 L (24.0-44.0) % Monocytes % 10.6 (0.0-12.0) % Eosinophils % 1.3 (0.00-5.0) % Basophils % 0.2 (0.0-0.4) % Basophils # 0.02 (0-0.4) VBG pH 7.42 (7.32-7.42) VBG pCO2 at Pat Temp 48 (42-55) mm/Hg VBG pO2 at Pat Temp 24 L (25-40) mm/Hg VBG HCO3 31.1 H* (22-28) meq/L VBG O2 Sat (Nicole) 54.2 L (95-100) VBG Base Excess 5.4 H (-2.0-2.0) VBG Hemoglobin 15.5 VBG Carboxyhemoglobin 2.6 (0.0-6.9) % T HGB POC Potassium 2.7 L* (3.5-5.1) Sodium (136-145) mEq/L Potassium (3.5-5.1) mEq/L Chloride (98-107) mEq/L Carbon Dioxide (21-32) mEq/L Anion Gap (5-15) MEQ/L BUN (9-20) mg/dL Creatinine (0.55-1.30) mg/dl Estimated GFR ML/MIN Glucose (70-110) MG/DL Calcium (8.5-10.1) mg/dL Magnesium (1.8-2.4) mg/dL Total Bilirubin (0.2-1.0) mg/dL AST (15-37) U/L ALT (12-78) U/L Alkaline Phosphatase (46-116) U/L Troponin I (0.000-0.056) ng/ml NT-Pro-B Natriuret Pep (0-125) pg/ml Serum Total Protein (6.4-8.2) gm/dL Albumin (3.4-5.0) g/dL - Progress Progress: improved Air Movement: fair <KENNEDY PRUITT - Last Filed: 08/30/17 06:55> - Progress Counseled pt/family regarding: lab results, diagnosis, need for follow-up, rad results <AKILA LOWERY - Last Filed: 08/30/17 09:31> - Progress Progress Note: 08/30/17 06:59 76-year-old white female with history of asthma COPD arrives with complaint of shortness of breath since 4:00 this morning. Patient states that she felt short of breath this morning she had no chest pain she was given a partial DuoNeb treatment however she began to feel dizzy while receiving the treatment so medics stopped. Patient also received Solu-Medrol 125 mg IV. Patient did receive a cortisone treatment on Saturday was placed on antibiotics. On arrival patient does not appear to be in acute distress vitals are stable patient is afebrile ARE clear. EKG sinus rhythm with first-degree AV block 76 bpm normal axis no acute ST or T wave changes. (KENNEDY PRUITT) 08/30/17 07:27 The patient was initially seen per Dr Pruitt. She is a patient of SHANON Petersen. She uses nebs at home. She has had congestion and was seen by [employer] TE[employer] and got Rx ofr azithromaycin, celestone shot. She has nausea, chest congetion, and felt short of breath. The patient fell worse in the night time. She called EMS. They told her the BP was high and she wanted to come get it checked. No hx of HTN. She takes K, Mag. No simone chest pains. No fever or chills. ILL: No hx of DM or HTN ALL: Oxycontin, codiene, keflex. Social: Quit smoking age 23. PE: Awake, alert, pleasant conversation. O-P clear. Cor reg. Lungs clear without wheeze or rales. Abd soft and NT. Extremity: Nontender with no edema. Skin without rash. 08/30/17 09:26 She is improved and wants to go home. Ate breakfast. She is taking K-dur 10 once a day. Will increase to TID. Will get appt with SHANON Petersen Saturday. (AKILA LOWERY) <KENNEDY PRUITT - Last Filed: 08/30/17 06:55> - Departure Time of Disposition: 09:28 Departure Disposition: Home Critical Care Time: No <AKILA LOWERY - Last Filed: 08/30/17 09:31> - Departure Clinical Impression: Hypokalemia due to inadequate potassium intake, URI (upper respiratory infection) Condition: Stable Referrals: EVAN PETERSEN [Primary Care Provider] - Instructions: Hypokalemia (DC), Viral Upper Respiratory Infection, Adult (DC) Additional Instructions: Increase potassium to one pill three times a day. See SHANON Petersen Saturday- 2:45PM. Continue your albuterol and antibiotics as already prescribed.
[2017-08-30 07:10] LABS: BASOPHIL % 0.2 % (0.0-0.4); Basophil (Absolute #) 0.02 (0-0.4); Eosinophil % 1.3 % (0.00-5.0); Eosinophil (Absolute #) 0.11 (0-0.5); Granulocyte Absolute (ANC) 5.89 (1.4-6.9); Granulocytes % 69.3 % (36.0-66.0); Hematocrit 41.6 % (35-47); Hemoglobin 14.7 gm/dl (12.0-16.0); Lymphocyte (Absolute #) 1.58 (1.0-4.6); Lymphocytes % 18.6 % (24.0-44.0); Mean Cell Volume 83.5 fl (78-100); Mean Corpuscular Hemoglobin 29.5 pg (26-32); Mean Corpuscular Hgb Concent. 35.3 g/dl (32-36); Mean Platelet Volume 10.6 fl (6-9.5); Monocytes % 10.6 % (0.0-12.0); Platelet Count 245 K/mm3 (150-450); Red Blood Count 4.98 M/mm3 (4.1-5.4); Red Cell Distribution Width 12.6 % (11.5-14.0); White Blood Count 8.5 K/mm3 (4.0-10.5)
[2017-08-30 07:12] LABS: VBG BASE EXCESS 5.4 (-2.0-2.0); VBG CARBOXYHEMOGLOBIN 2.6 % T HGB (0.0-6.9); VBG HCO3- 31.1 meq/L (22-28); VBG HEMOGLOBIN 15.5; VBG O2 SATURATION 54.2 (95-100); VBG pH 7.42 (7.32-7.42)
[2017-08-30 07:13] LABS: VBG POTASSIUM 2.7 (3.5-5.1)
[2017-08-30] MEDS ORDERED: K-LYTE 25 MEQ PO ONE (07:23)
[2017-08-30] MEDS ORDERED: ATARAX 25 MG PO ONE (07:24)
[2017-08-30] MEDS ORDERED: ATARAX 25 MG ONE (07:38)
[2017-08-30] MEDS ORDERED: K-LYTE 25 MEQ ONE (07:38)
[2017-08-30 08:03] LABS: ALBUMIN 4.2 g/dL (3.4-5.0); ALKALINE PHOSPHATASE 89 U/L (46-116); ANION GAP 12.9 MEQ/L (5-15); BLOOD UREA NITROGEN 14 mg/dL (9-20); CHLORIDE 95 mEq/L (98-107); Calcium 9.4 mg/dL (8.5-10.1); Carbon Dioxide 29.5 mEq/L (21-32); Creatinine 1 0.79 mg/dl (0.55-1.30); EST GLOMERULAR FILTRATION RATE > 60 ML/MIN; Glucose 123 MG/DL (70-110); NT PRO BNP 53 pg/ml (0-125); SGOT/AST 20 U/L (15-37); SGPT/ALT 20 U/L (12-78); SODIUM 135 mEq/L (136-145); Total Protein 7.3 gm/dL (6.4-8.2)
[2017-08-30 08:06] LABS: Potassium 2.8 mEq/L (3.5-5.1)
[2017-08-30] MEDS ORDERED: Magnesium 1 Gm / 100 Ml D5W*** 200 ML IV ONE (08:06)
[2017-08-30] MEDS: Magnesium 1 Gm / 100 Ml D5W*** 100 ML IV SCH (08:31)
[2017-08-30 09:03] VITALS: BP 130/73; PULSE 74
--- NOTE | 2017-08-30 09:10 | XRAY ---
Indication: Short of breath. Comparison: January 31, 2017. Portable chest remains clear again with a few incidental calcified granulomas. Heart is not enlarged for AP portable technique. Bony thorax intact again with mild osteopenia, degenerative changes, and scoliosis. Impression: Stable nonacute chest with chronic features.
== END 2017-08-30 09:42 | disposition home or self-care (01) ==
LOC: ED 06:22
DX: E87.6 Hypokalemia (principal); J06.9 Acute upper respiratory infection, unspecified; I44.0 Atrioventricular block, first degree; Z79.899 Other long term (current) drug therapy
CPT/HCPCS: 36415; 71045; 80053; 82805; 83735; 83880; 84484; 85025; 93005; 93041; 96365; 99284; J3475; A9270-GY

== ENCOUNTER 2017-09-09 13:27 | Emergency (ER) | payer MEDICARE ==
[2017-09-09 14:38] LABS: BASOPHIL % 0.3 % (0.0-0.4); Basophil (Absolute #) 0.02 (0-0.4); Eosinophil % 0.7 % (0.00-5.0); Eosinophil (Absolute #) 0.05 (0-0.5); Granulocyte Absolute (ANC) 5.13 (1.4-6.9); Granulocytes % 67.2 % (36.0-66.0); Hematocrit 45.1 % (35-47); Hemoglobin 16.4 gm/dl (12.0-16.0); Lymphocyte (Absolute #) 1.68 (1.0-4.6); Mean Cell Volume 83.2 fl (78-100); Mean Corpuscular Hgb Concent. 36.4 g/dl (32-36); Mean Platelet Volume 10.6 fl (6-9.5); Monocyte (Absolute #) 0.75 (0.0-1.3); Monocytes % 9.8 % (0.0-12.0); Platelet Count 268 K/mm3 (150-450); Red Blood Count 5.42 M/mm3 (4.1-5.4); Red Cell Distribution Width 12.7 % (11.5-14.0); White Blood Count 7.6 K/mm3 (4.0-10.5)
[2017-09-09 14:42] LABS: Mean Corpuscular Hemoglobin 30.2 pg (26-32)
[2017-09-09 14:59] LABS: ALBUMIN 4.1 g/dL (3.4-5.0); ALKALINE PHOSPHATASE 96 U/L (46-116); ANION GAP 16.1 MEQ/L (5-15); BLOOD UREA NITROGEN 9 mg/dL (9-20); CHLORIDE 100 mEq/L (98-107); Carbon Dioxide 27.3 mEq/L (21-32); Glucose 102 MG/DL (70-110); Potassium 3.4 mEq/L (3.5-5.1); SGOT/AST 23 U/L (15-37); SGPT/ALT 33 U/L (12-78); SODIUM 140 mEq/L (136-145); Total Protein 7.4 gm/dL (6.4-8.2)
--- NOTE | 2017-09-09 15:14 | XRAY ---
Indication: Constipation. Comparison: Chest exam August 30, 2017. 2 views of the abdomen demonstrates nonspecific nonobstructed bowel gas pattern with little to no fecal debris. Pelvic suture material/surgical clips and hepatic/splenic calcified granulomas. Heavy aortic calcifications. Remaining solid organs unremarkable. Age-related osteopenia, moderate/advanced multilevel degenerative spondylosis, mild bilateral hip degenerative arthropathy, and moderate double curvature scoliosis. Single frontal chest demonstrates left base subsegmental atelectasis/scarring and stable right lung calcified granuloma. Remaining heart and lungs normal. Bony thorax intact. Impression: 1. Nonacute nonobstructed abdomen with chronic features. 2. Nonacute one view chest with chronic features.
--- NOTE | 2017-09-09 15:23 | ERPHSYRPT ---
- History of Present Illness Time Seen by Provider: 09/09/17 13:59 Source: patient, family (son) Patient Subjective Stated Complaint: Pt states "I have been constipated for awhile, I have not been eating because I do not want to pack more down in there. My stomach has pressure." Triage Nursing Assessment: Pt alert and oriented X 3, skin pwd. Pt ambulates without difficulty, able to speak in clear full sentences. Pt anxious. Physician History: CC: constipation HX: 76 y/o patient of SHANON Petersen with long hx of constipation. Takes pain medications. Has not had a good BM for over a week. She has used half mag citrate, exlax, docusate, other laxatives. She has had a short BM, smear, and a dirty water BM. Normal urination. No abd pain. No fever or chills. No vomiting. She tried a fleet enema at home. Severity: moderate Allergies/Adverse Reactions: cephalexin monohydrate [From Keflex] Allergy (Mild, Verified 08/30/17 06:46) Nausea oxycodone HCl [From OxyContin] Allergy (Mild, Verified 08/30/17 06:46) Nausea and Vomiting DIZZY codeine Allergy (Verified 08/30/17 06:46) Nausea and Vomiting iodine Allergy (Verified 08/30/17 06:46) Home Medications: Albuterol Sulfate [Proair Hfa] 2 puffs IH Q2H/PRN PRN 01/29/16 [History] Cetirizine HCl 10 mg PO DAILY 01/29/16 [History] Fluticasone/Vilanterol [Breo Ellipta 100-25 Mcg INH] 1 each IH DAILY 01/29/16 [ History] Lorazepam 0.5 mg [Ativan 0.5 MG] 0.5 mg PO BID PRN 01/29/16 [History] Potassium Chloride 20 meq PO BID 01/29/16 [History] Hydrochlorothiazide 25 mg [hydroDIURIL 25 MG] 25 mg PO DAILY 05/31/16 [ History] Omeprazole 20 MG [Prilosec 20 mg] 20 mg PO DAILY 07/23/16 [History] Hx Tetanus, Diphtheria Vaccination/Date Given: Yes Hx Influenza Vaccination/Date Given: Yes Hx Pneumococcal Vaccination/Date Given: Yes Immunizations Up to Date: Yes - Review of Systems Constitutional: No Fever, No Chills Eyes: No Symptoms Ears, Nose, & Throat: No Symptoms Respiratory: Cough (improved) Cardiac: No Chest Pain Abdominal/Gastrointestinal: Constipation, No Abdominal Pain, No Nausea, No Vomiting Genitourinary Symptoms: No Dysuria Musculoskeletal: No Back Pain Skin: No Rash Neurological: No Headache All Other Systems: Reviewed and Negative - Past Medical History Pertinent Past Medical History: Yes Neurological History: No Pertinent History ENT History: No Pertinent History Cardiac History: No Pertinent History Respiratory History: Asthma, COPD Endocrine Medical History: No Pertinent History Musculoskeletal History: Rheumatoid Arthritis, Other GI Medical History: GERD, Hernia, Other History: No Pertinent History Psycho-Social History: Anxiety Female Reproductive Disorders: No Pertinent History Other Medical History: Hiatal Hernia, History of backpain, sciatica pain - Past Surgical History Past Surgical History: Yes Neuro Surgical History: No Pertinent History Cardiac: No Pertinent History Respiratory: No Pertinent History Gastrointestinal: No Pertinent History Genitourinary: No Pertinent History Musculoskeletal: Orthopedic Surgery Female Surgical History: Hysterectomy Other Surgical History: trigger finger, orif of left knee cap, HIATAL HERNIA, in [facility] in October for COPD,bronchitis , pneumonia. Thyroidectomy (left olobe) - Social History Smoking Status: Never smoker How long have you smoked: 1 Exposure to second hand smoke: Yes Alcohol Use: None Drug Use: none Patient Lives Alone: No Significant Family History: no pertinent family hx - Nursing Vital Signs Nursing Vital Signs: Initial Vital Signs Temperature 99.3 F 09/09/17 14:00 Pulse Rate 84 09/09/17 14:00 Respiratory Rate 18 09/09/17 14:00 Blood Pressure 152/102 09/09/17 14:00 O2 Sat by Pulse Oximetry 99 09/09/17 14:00 Pain Scale Pain Intensity 4 - Physical Exam General Appearance: alert, other (pleasant lady) Eye Exam: PERRL/EOMI Ears, Nose, Throat Exam: normal ENT inspection, moist mucous membranes Neck Exam: normal inspection, non-tender, supple Respiratory Exam: normal breath sounds Cardiovascular Exam: regular rate/rhythm Gastrointestinal/Abdomen Exam: soft, No tenderness, No distention, No mass, No guarding Rectal Exam: normal exam (minimal esperanza color stool in vault, soft, no mass, no bleeding, no impaction) Back Exam: normal inspection Extremity Exam: normal inspection, normal range of motion Neurologic Exam: alert, oriented x 3, cooperative, nml station & gait, sensation nml, No motor deficits Skin Exam: warm, dry, No rash SpO2 Interpretation: normal SpO2: 99 Oxygen Delivery: Room Air - Course Nursing assessment & vital signs reviewed: Yes - Radiology Exams AAS X-ray Interpretation: Teleradiologist Report (nonacute nonobstructed abd) Ordered Tests: Active Orders 24 hr Category Date Time Status OBSTR/ACUTE ABDOMEN SERIES Stat Exams 09/09/17 14:59 Completed CBC W DIFF Stat Lab 09/09/17 14:25 Completed CMP Stat Lab 09/09/17 14:25 Completed MAGNESIUM Stat Lab 09/09/17 14:25 Completed Lab/Rad Data: Laboratory Result Diagrams 09/09/17 14:25 09/09/17 14:25 Laboratory Results 09/09/17 09/09/17 Range/Units 14:25 14:25 WBC 7.6 (4.0-10.5) K/mm3 RBC 5.42 H (4.1-5.4) M/mm3 Hgb 16.4 H (12.0-16.0) gm/dl Hct 45.1 (35-47) % MCV 83.2 (78-100) fl MCH 30.2 (26-32) pg MCHC 36.4 H (32-36) g/dl RDW 12.7 (11.5-14.0) % Plt Count 268 (150-450) K/mm3 MPV 10.6 H (6-9.5) fl Gran % 67.2 H (36.0-66.0) % Lymphocytes % 22.0 L (24.0-44.0) % Monocytes % 9.8 (0.0-12.0) % Eosinophils % 0.7 (0.00-5.0) % Basophils % 0.3 (0.0-0.4) % Basophils # 0.02 (0-0.4) Sodium 140 (136-145) mEq/L Potassium 3.4 L (3.5-5.1) mEq/L Chloride 100 (98-107) mEq/L Carbon Dioxide 27.3 (21-32) mEq/L Anion Gap 16.1 H (5-15) MEQ/L BUN 9 (9-20) mg/dL Creatinine 0.80 (0.55-1.30) mg/dl Estimated GFR > 60 ML/MIN Glucose 102 (70-110) MG/DL Calcium 10.0 (8.5-10.1) mg/dL Magnesium 1.9 (1.8-2.4) mg/dL Total Bilirubin 0.60 (0.2-1.0) mg/dL AST 23 (15-37) U/L ALT 33 (12-78) U/L Alkaline Phosphatase 96 (46-116) U/L Serum Total Protein 7.4 (6.4-8.2) gm/dL Albumin 4.1 (3.4-5.0) g/dL - Progress Progress Note: 09/09/17 15:27 Pt stable. No bowel obstr. Really no sign of simone constipation. She will use the half mag citrate and follow up with SHANON Petersen this week. Counseled pt/family regarding: lab results, diagnosis, need for follow-up, rad results - Departure Time of Disposition: 15:28 Departure Disposition: Home Clinical Impression: Constipation Qualifiers: Constipation type: slow transit constipation Qualified Code(s): K59.01 - Slow transit constipation Condition: Stable Critical Care Time: No Referrals: EVAN PETERSEN [Primary Care Provider] - Instructions: Constipation, Adult (DC) Additional Instructions: See SHANON Petersen this week at 1:30PM. Use the rest of your half bottle magnesium citrate when you get home. No more enemas. Take docusate twice a day. Return for fever or vomiting or concerns.
[2017-09-09 15:43] VITALS: BP 142/88; PULSE 78; O2SAT 96
== END 2017-09-09 15:44 | disposition home or self-care (01) ==
LOC: ED 13:27
DX: K59.01 Slow transit constipation (principal); Z79.899 Other long term (current) drug therapy
CPT/HCPCS: 36415; 74022; 80053; 83735; 85025; 99284

== ENCOUNTER 2017-09-17 05:57 | Day surgery (SDC) | payer MEDICARE ==
[2017-09-17] MEDS ORDERED: Versed 2 MG/2 ML Injection IV ONE (05:58)
[2017-09-17] MEDS ORDERED: Zofran 4 MG/2 ML VIAL IV ONE (05:58)
[2017-09-17] MEDS ORDERED: DIPRIVAN 200 MG/20 ML IV ONE (05:58)
[2017-09-17] MEDS ORDERED: Lactated Ringers 1,000 ML IV SCH (06:30)
[2017-09-17] MEDS ORDERED: Lactated Ringers 1,000 ML IV ONE (08:06)
[2017-09-17 10:09] VITALS: O2SAT 98
[2017-09-17 10:38] VITALS: BP 151/74; PULSE 70
--- NOTE | 2017-09-17 11:16 | OP ---
SURGERY DATE/TIME: 09/17/2017 0801 PREOPERATIVE DIAGNOSIS: Screening exam. POSTOPERATIVE DIAGNOSIS: Melanosis coli, sigmoid diverticulosis, poor prep. PROCEDURE: Colonoscopy. SURGEON: Dr. Hammer. ANESTHESIA: MAC. Medications given by anesthesia department. HISTORY: The patient is a 76 year-old white female who reports she had a screening sigmoidoscopy many years ago but has not had an evaluation since that time. She is complaining of constipation. She presents here otherwise for screening examination. She was appraised of the risks of the procedure including the risk of perforation, phlebitis, untoward reaction to medication, bleeding and missed lesions. The patient verbalized her understanding and desired to have the procedure performed. DESCRIPTION OF PROCEDURE: The patient was given the medications by the anesthesia department. She had continuous pulse oximetry, ECG monitoring, intermittent blood pressure monitoring and tidal CO2 monitoring during the examination. She was placed in the left lateral decubitus position. A digital rectal examination was performed and revealed normal anal sphincter tone and no masses. There was noted to be liquid brown stool present at the anal verge. The flexible Olympus pediatric colonoscope was used to intubate the rectum. A view of the colon was developed sequentially to the cecum. It was difficult to manage through the sigmoid colon as it appeared to be somewhat narrowed. There was also noted to be sigmoid diverticulosis and there was a large amounts of liquid brown stool still present. Upon insertion and withdrawal, including a retroflex view in the rectum, again noted was the melanosis coli and sigmoid diverticula but no other mucosal lesions. The scope was removed from the patient who tolerated the procedure well and was sent back to OP recovery in good condition. The prep was noted to be poor with 1200 cc of liquid brown stool removed during the examination to complete the exam.
== END 2017-09-17 10:00 | disposition home or self-care (01) ==
LOC: SDC 05:57
PROVIDERS: ATTEND Family Medicine
PROC: 0DJD8ZZ Inspection of Lower Intestinal Tract, Via Natural or Artificial Opening Endoscopic (ICD-10-PCS; principal; 2017-09-17)
DX: Z12.11 Encounter for screening for malignant neoplasm of colon (principal); K63.89 Other specified diseases of intestine; K57.90 Diverticulosis of intestine, part unspecified, without perforation or abscess without bleeding
CPT/HCPCS: 00812; 99100; G0121; J2250; J2405; J2704

== ENCOUNTER 2017-10-18 14:07 | Emergency (ER) | payer MEDICARE ==
[2017-10-18] MEDS ORDERED: DUONEB 0.5-3 MG/3 ml Neb IH ONE ×2 (14:11→14:19)
[2017-10-18 14:32] LABS: BASOPHIL % 0.3 % (0.0-0.4); Basophil (Absolute #) 0.02 (0-0.4); Eosinophil % 3.9 % (0.00-5.0); Eosinophil (Absolute #) 0.24 (0-0.5); Granulocyte Absolute (ANC) 3.35 (1.4-6.9); Granulocytes % 54.9 % (36.0-66.0); Hemoglobin 15.1 gm/dl (12.0-16.0); Lymphocyte (Absolute #) 1.81 (1.0-4.6); Lymphocytes % 29.6 % (24.0-44.0); Mean Corpuscular Hemoglobin 30.9 pg (26-32); Mean Corpuscular Hgb Concent. 36.8 g/dl (32-36); Mean Platelet Volume 10.4 fl (6-9.5); Monocyte (Absolute #) 0.69 (0.0-1.3); Monocytes % 11.3 % (0.0-12.0); Platelet Count 238 K/mm3 (150-450); Red Blood Count 4.88 M/mm3 (4.1-5.4); Red Cell Distribution Width 12.8 % (11.5-14.0); White Blood Count 6.1 K/mm3 (4.0-10.5)
--- NOTE | 2017-10-18 14:38 | XRAY ---
Indication: Short of breath. History COPD. Comparison: September 09, 2017. Portable chest again hyperinflated with stable right mid lung calcified granuloma. No focal infiltrate, consolidation, or large effusion. Heart is not enlarged. Bony thorax intact again with mild osteopenia, degenerative changes, and double curvature scoliosis. Impression: Nonacute hyperinflated chest with chronic features.
--- NOTE | 2017-10-18 15:07 | ERPHSYRPT ---
- History of Present Illness Time Seen by Provider: 10/18/17 14:11 Source: patient Patient Subjective Stated Complaint: pt reports increased sob beginning a few hours ago-states that she has presure and tightennes in her chest-denies recent illness Triage Nursing Assessment: pt presents to ed sob-speaking in short sentences- retracting-audible wheezes noted with diminished lung sounds noted Physician History: CC: short of air Hx: 77 y/o patient with hx of COPD. She noted shortness of breath for the past few hours not relieved by her nebs at home. No fever, cough. Has been sneezing. No chest pain but feels tight. She took two asa. No hx of heart trouble. No rash , itching, or swelling. Allergies/Adverse Reactions: cephalexin monohydrate [From Keflex] Allergy (Mild, Verified 10/18/17 14:32) Nausea oxycodone HCl [From OxyContin] Allergy (Mild, Verified 10/18/17 14:32) Nausea and Vomiting DIZZY codeine Allergy (Verified 10/18/17 14:32) Nausea and Vomiting iodine Allergy (Verified 10/18/17 14:32) Home Medications: Albuterol Sulfate [Proair Hfa] 2 puffs IH Q2H/PRN PRN 01/29/16 [History] Cetirizine HCl 10 mg PO DAILY 01/29/16 [History] Fluticasone/Vilanterol [Breo Ellipta 100-25 Mcg INH] 1 each IH DAILY 01/29/16 [ History] Lorazepam 0.5 mg [Ativan 0.5 MG] 0.5 mg PO BID PRN 01/29/16 [History] Potassium Chloride 20 meq PO BID 01/29/16 [History] Hydrochlorothiazide 25 mg [hydroDIURIL 25 MG] 25 mg PO DAILY 05/31/16 [ History] Omeprazole 20 MG [Prilosec 20 mg] 20 mg PO DAILY 07/23/16 [History] Hx Tetanus, Diphtheria Vaccination/Date Given: Yes Hx Influenza Vaccination/Date Given: Yes Hx Pneumococcal Vaccination/Date Given: Yes Immunizations Up to Date: Yes - Review of Systems Constitutional: No Fever, No Chills Respiratory: Dyspnea, Wheezing, No Cough Cardiac: No Chest Pain (tightness) Abdominal/Gastrointestinal: No Abdominal Pain, No Nausea, No Vomiting, No Diarrhea Skin: No Pruritis, No Rash Neurological: No Headache All Other Systems: Reviewed and Negative - Past Medical History Pertinent Past Medical History: Yes Neurological History: No Pertinent History ENT History: No Pertinent History Cardiac History: No Pertinent History Respiratory History: Asthma, COPD Endocrine Medical History: No Pertinent History Musculoskeletal History: Rheumatoid Arthritis, Other GI Medical History: GERD, Hernia, Other History: No Pertinent History Psycho-Social History: Anxiety Female Reproductive Disorders: No Pertinent History Other Medical History: Hiatal Hernia, History of backpain, sciatica pain - Past Surgical History Past Surgical History: Yes Neuro Surgical History: No Pertinent History Cardiac: No Pertinent History Respiratory: No Pertinent History Gastrointestinal: No Pertinent History Genitourinary: No Pertinent History Musculoskeletal: Orthopedic Surgery Female Surgical History: Hysterectomy Other Surgical History: trigger finger, orif of left knee cap, HIATAL HERNIA, in [facility] in October for COPD,bronchitis , pneumonia. Thyroidectomy (left olobe) - Social History Smoking Status: Never smoker How long have you smoked: 1 Exposure to second hand smoke: Yes Alcohol Use: None Drug Use: none Patient Lives Alone: No Significant Family History: no pertinent family hx - Nursing Vital Signs Nursing Vital Signs: Initial Vital Signs Temperature 97.3 F 10/18/17 14:12 Pulse Rate 95 H 10/18/17 14:12 Respiratory Rate 18 10/18/17 14:12 Blood Pressure 169/88 10/18/17 14:12 O2 Sat by Pulse Oximetry 96 10/18/17 14:12 Pain Scale Pain Intensity 0 - Physical Exam General Appearance: alert, other (pleasant lady, anxious on arrival but better after neb) Eye Exam: PERRL/EOMI Neck Exam: normal inspection, non-tender, supple Respiratory Exam: normal breath sounds, diminished breath sounds, No respiratory distress, No wheezing Cardiovascular/Chest Exam: regular rate/rhythm Abdominal/Gastrointestinal Exam: soft, No tenderness, No distention Extremity Exam: non-tender, normal range of motion, no calf tenderness, No pedal edema Neurologic Exam: alert, oriented x 3, cooperative, sensation nml, No motor deficits Skin Exam: warm, dry, No rash SpO2 Interpretation: normal SpO2: 97 Oxygen Delivery: Room Air - Course Nursing assessment & vital signs reviewed: Yes EKG Interpreted by Me: RATE (80), Sinus Rhythm, NORMAL AXIS, NORMAL INTERVALS ( QTc 434), NORMAL ST-T, Other (Poor R wave progression) Ordered Tests: Active Orders 24 hr Category Date Time Status [employer]er [employer] STAT Care 10/18/17 14:12 Active EKG-ER Only STAT Care 10/18/17 14:11 Active IV Insertion STAT Care 10/18/17 14:11 Active Pulse Oximetry (ED) STAT Care 10/18/17 14:11 Active CHEST 1 VIEW (PORTABLE) Stat Exams 10/18/17 14:12 Completed CBC W DIFF Stat Lab 10/18/17 14:25 Completed CMP Stat Lab 10/18/17 14:25 Completed D-DIMER QUANTITATION Stat Lab 10/18/17 14:25 Completed Lactic Acid Stat Lab 10/18/17 14:45 Completed MAGNESIUM Stat Lab 10/18/17 14:25 Completed NT PRO BNP Stat Lab 10/18/17 14:25 Completed TROPONIN Q3H Lab 10/18/17 14:25 Completed TROPONIN Q3H Lab 10/18/17 17:15 Ordered TROPONIN Q3H Lab 10/18/17 20:15 Ordered TROPONIN Q3H Lab 10/18/17 23:15 Ordered TROPONIN Q3H Lab 10/19/17 02:15 Ordered Respiratory Nebulizer STAT RT 10/18/17 14:13 Completed Medication Summary Discontinued Medications Generic Name Dose Route Start Last Admin Trade Name Freq PRN Reason Stop Dose Admin Albuterol/Ipratropium 3 ml 10/18/17 14:11 10/18/17 14:30 Duoneb 0.5-3 Mg/3 Ml Neb IH 10/18/17 14:12 3 ml STAT ONE Administration Albuterol/Ipratropium Confirm 10/18/17 14:19 Duoneb 0.5-3 Mg/3 Ml Neb Administered 10/18/17 14:20 Dose 3 ml IH .STK-MED ONE Hydroxyzine HCl 25 mg 10/18/17 15:09 10/18/17 15:47 Atarax 25 Mg PO 10/18/17 15:10 25 mg STAT ONE Administration Hydroxyzine HCl Confirm 10/18/17 15:46 Atarax 25 Mg Administered 10/18/17 15:47 Dose 25 mg .ROUTE .STK-MED ONE Potassium Bicarbonate 25 meq 10/18/17 15:52 10/18/17 16:00 K-Lyte 25 Meq PO 10/18/17 15:53 25 meq STAT ONE Administration Potassium Bicarbonate Confirm 10/18/17 15:55 K-Lyte 25 Meq Administered 10/18/17 15:56 Dose 25 meq .ROUTE .STK-MED ONE Prednisone 40 mg 10/18/17 15:09 10/18/17 15:47 Deltasone 20 Mg PO 10/18/17 15:10 40 mg STAT ONE Administration Prednisone Confirm 10/18/17 15:45 Deltasone 20 Mg Administered 10/18/17 15:46 Dose 40 mg .ROUTE .STK-MED ONE Lab/Rad Data: Laboratory Result Diagrams 10/18/17 14:25 10/18/17 14:25 Laboratory Results 10/18/17 10/18/17 10/18/17 Range/Units 14:45 14:25 14:25 WBC (4.0-10.5) K/mm3 RBC (4.1-5.4) M/mm3 Hgb (12.0-16.0) gm/dl Hct (35-47) % MCV (78-100) fl MCH (26-32) pg MCHC (32-36) g/dl RDW (11.5-14.0) % Plt Count (150-450) K/mm3 MPV (6-9.5) fl Gran % (36.0-66.0) % Eos # (Auto) (0-0.5) Absolute Lymphs (auto) (1.0-4.6) Absolute Monos (auto) (0.0-1.3) Lymphocytes % (24.0-44.0) % Monocytes % (0.0-12.0) % Eosinophils % (0.00-5.0) % Basophils % (0.0-0.4) % Absolute Granulocytes (1.4-6.9) Basophils # (0-0.4) D-Dimer 445.27 (215-500) ng/mL Sodium (137-145) mmol/L Potassium (3.5-5.1) mmol/L Chloride (98-107) mmol/L Carbon Dioxide (22-30) mmol/L Anion Gap (5-15) MEQ/L BUN (7-17) mg/dL Creatinine (0.52-1.04) mg/dL Estimated GFR ML/MIN Glucose (74-106) mg/dL Lactic Acid 1.4 (0.4-2.0) Calcium (8.4-10.2) mg/dL Magnesium (1.6-2.3) mg/dL Total Bilirubin (0.2-1.3) mg/dL AST (14-36) U/L ALT (0-35) U/L Alkaline Phosphatase (38-126) U/L Troponin I < 0.012 (0.000-0.034) ng/mL NT-Pro-B Natriuret Pep (0-1800) pg/mL Serum Total Protein (6.3-8.2) g/dL Albumin (3.5-5.0) g/dL 10/18/17 10/18/17 Range/Units 14:25 14:25 WBC 6.1 (4.0-10.5) K/mm3 RBC 4.88 (4.1-5.4) M/mm3 Hgb 15.1 (12.0-16.0) gm/dl Hct 41.0 (35-47) % MCV 84.0 (78-100) fl MCH 30.9 (26-32) pg MCHC 36.8 H (32-36) g/dl RDW 12.8 (11.5-14.0) % Plt Count 238 (150-450) K/mm3 MPV 10.4 H (6-9.5) fl Gran % 54.9 (36.0-66.0) % Eos # (Auto) 0.24 (0-0.5) Absolute Lymphs (auto) 1.81 (1.0-4.6) Absolute Monos (auto) 0.69 (0.0-1.3) Lymphocytes % 29.6 (24.0-44.0) % Monocytes % 11.3 (0.0-12.0) % Eosinophils % 3.9 (0.00-5.0) % Basophils % 0.3 (0.0-0.4) % Absolute Granulocytes 3.35 (1.4-6.9) Basophils # 0.02 (0-0.4) D-Dimer (215-500) ng/mL Sodium 134 L (137-145) mmol/L Potassium 3.3 L (3.5-5.1) mmol/L Chloride 93 L (98-107) mmol/L Carbon Dioxide 30 (22-30) mmol/L Anion Gap 14.8 (5-15) MEQ/L BUN 12 (7-17) mg/dL Creatinine 0.61 (0.52-1.04) mg/dL Estimated GFR > 60.0 ML/MIN Glucose 101 (74-106) mg/dL Lactic Acid (0.4-2.0) Calcium 9.6 (8.4-10.2) mg/dL Magnesium 1.7 (1.6-2.3) mg/dL Total Bilirubin 0.40 (0.2-1.3) mg/dL AST 23 (14-36) U/L ALT 16 (0-35) U/L Alkaline Phosphatase 86 (38-126) U/L Troponin I (0.000-0.034) ng/mL NT-Pro-B Natriuret Pep 134 (0-1800) pg/mL Serum Total Protein 7.1 (6.3-8.2) g/dL Albumin 4.4 (3.5-5.0) g/dL - Progress Progress Note: 10/18/17 15:08 CXR: Nonacute hyperinflated chest with chronic features. 10/18/17 16:15 She is feeling fine and wants to go home. Lungs clear with better air exchange. Will release with nebs and prednisone. Counseled pt/family regarding: lab results, diagnosis, need for follow-up - Departure Time of Disposition: 16:16 Departure Disposition: Home Clinical Impression: COPD with exacerbation, Hypokalemia due to inadequate potassium intake Condition: Stable Critical Care Time: No Referrals: CAM HAMMER [Primary Care Provider] - Instructions: Exacerbation of COPD (DC) Additional Instructions: Take your nebs every 4 hours. Rx prendisone to start tomorrow. Return for problems or concerns. Follow up next week with Dr Hammer. Make sure to take your potassium twice a day. Prescriptions: Prednisone 20 mg [Deltasone 20 mg] 2 tab PO DAILY #8 tablet
[2017-10-18] MEDS ORDERED: DELTASONE 20 MG PO ONE (15:09)
[2017-10-18] MEDS ORDERED: ATARAX 25 MG PO ONE (15:09)
[2017-10-18 15:26] LABS: ALBUMIN 4.4 g/dL (3.5-5.0); ALKALINE PHOSPHATASE 86 U/L (38-126); ANION GAP 14.8 MEQ/L (5-15); BLOOD UREA NITROGEN 12 mg/dL (7-17); CHLORIDE 93 mmol/L (98-107); Calcium 9.6 mg/dL (8.4-10.2); Carbon Dioxide 30 mmol/L (22-30); Creatinine 1 0.61 mg/dL (0.52-1.04); Glucose 101 mg/dL (74-106); Potassium 3.3 mmol/L (3.5-5.1); SGOT/AST 23 U/L (14-36); SGPT/ALT 16 U/L (0-35); SODIUM 134 mmol/L (137-145); Total Protein 7.1 g/dL (6.3-8.2)
[2017-10-18 15:36] LABS: NT PRO BNP 134 pg/mL (0-1800)
[2017-10-18] MEDS ORDERED: DELTASONE 20 MG ONE (15:45)
[2017-10-18] MEDS ORDERED: ATARAX 25 MG ONE (15:46)
[2017-10-18] MEDS ORDERED: K-LYTE 25 MEQ PO ONE (15:52)
[2017-10-18] MEDS ORDERED: K-LYTE 25 MEQ ONE (15:55)
[2017-10-18 16:23] VITALS: BP 128/83; PULSE 69; O2SAT 98
== END 2017-10-18 16:23 | disposition home or self-care (01) ==
LOC: ED 14:07
DX: J44.1 Chronic obstructive pulmonary disease with (acute) exacerbation (principal); E87.6 Hypokalemia; Z79.899 Other long term (current) drug therapy; R07.89 Other chest pain
CPT/HCPCS: 36000; 36415; 71045; 80053; 83605; 83735; 83880; 84484; 85025; 85379; 93005; 93041; 94640; 99284; A9270-GY

== ENCOUNTER 2018-06-27 12:00 | Emergency (ER) | payer MEDICARE ==
[2018-06-27] MEDS ORDERED: Sodium Chloride 0.9% 1000 ML 1,000 ML IV SCH (12:45)
[2018-06-27] MEDS ORDERED: Sodium Chloride 0.9% 1000 ML 1,000 ML ONE (12:51)
--- NOTE | 2018-06-27 12:56 | ERPHSYRPT ---
- History of Present Illness Time Seen by Provider: 06/27/18 12:30 Source: patient Exam Limitations: clinical condition Patient Subjective Stated Complaint: pt here for general complaints, she is under a lot of stress, she lost her bother 2 weeks ago, and today co being tried ,muscle cramps, shakes.she is worried about her kcl and mag levels Triage Nursing Assessment: pt alert, resp easy, walked in, skin w/d/p. no edema , mucus membranes moist Physician History: PATIENT'S A HISTORY OF ASTHMA, COPD, RHEUMATOID ARTHRITIS, ANXIETY AND LOW BACK SCIATICA STATES SHE LOST HER BROTHER 2 WEEKS AGO AND SHE HAS MULTIPLE COMPLAINTS ,STATING HER MOUTH AND LIP ARE DRY AND THINKS HER MAGNESIUM AND HER POTASSIUM ARE AT LOW LEVELS. TREATED FOR URINARY TRACT INFECTION 2 WEEKS NOW HAS FREQUENCY AND DYSURIA X 5 DAYS. DENIES FLANK PAIN OR FEVER. Timing/Duration: week(s) Severity: moderate Modifying Factors: Improves With: other (POOR APPETITE ) Associated Symptoms: nausea Allergies/Adverse Reactions: cephalexin monohydrate [From Keflex] Allergy (Mild, Verified 06/27/18 12:21) Nausea oxycodone HCl [From OxyContin] Allergy (Mild, Verified 06/27/18 12:21) Nausea and Vomiting DIZZY codeine Allergy (Verified 06/27/18 12:21) Nausea and Vomiting iodine Allergy (Verified 06/27/18 12:21) Home Medications: Albuterol Sulfate [Proair Hfa] 2 puffs IH Q2H/PRN PRN 01/29/16 [History] Cetirizine HCl 10 mg PO DAILY 01/29/16 [History] Fluticasone/Vilanterol [Breo Ellipta 100-25 Mcg INH] 1 each IH DAILY 01/29/16 [ History] Lorazepam 0.5 mg [Ativan 0.5 MG] 0.5 mg PO BID PRN 01/29/16 [History] Potassium Chloride 20 meq PO BID 01/29/16 [History] Hydrochlorothiazide 25 mg [hydroDIURIL 25 MG] 25 mg PO DAILY 05/31/16 [ History] Omeprazole 20 MG [Prilosec 20 mg] 20 mg PO DAILY 07/23/16 [History] Oxybutynin Chloride Xl 5 mg [Ditropan XL 5 MG] 5 mg DAILY 06/27/18 [ History] Hx Tetanus, Diphtheria Vaccination/Date Given: Yes Hx Influenza Vaccination/Date Given: No Hx Pneumococcal Vaccination/Date Given: No Immunizations Up to Date: Yes - Review of Systems Constitutional: Fatigue, No Fever, No Chills Eyes: No Symptoms Ears, Nose, & Throat: No Symptoms Respiratory: No Symptoms, No Cough, No Dyspnea Cardiac: No Symptoms, No Chest Pain, No Edema, No Syncope Abdominal/Gastrointestinal: No Symptoms, No Abdominal Pain, No Nausea, No Vomiting, No Diarrhea Genitourinary Symptoms: No Symptoms, No Dysuria Musculoskeletal: No Symptoms, No Back Pain, No Neck Pain Skin: No Rash Neurological: No Dizziness, No Focal Weakness, No Sensory Changes Psychological: No Symptoms Endocrine: No Symptoms All Other Systems: Reviewed and Negative - Past Medical History Pertinent Past Medical History: Yes Neurological History: No Pertinent History ENT History: No Pertinent History Cardiac History: No Pertinent History Respiratory History: Asthma, COPD Endocrine Medical History: No Pertinent History Musculoskeletal History: Rheumatoid Arthritis, Other GI Medical History: GERD, Hernia, Other History: No Pertinent History Psycho-Social History: Anxiety Female Reproductive Disorders: No Pertinent History Other Medical History: Hiatal Hernia, History of backpain, sciatica pain - Past Surgical History Past Surgical History: Yes Neuro Surgical History: No Pertinent History Cardiac: No Pertinent History Respiratory: No Pertinent History Gastrointestinal: No Pertinent History Genitourinary: No Pertinent History Musculoskeletal: Orthopedic Surgery Female Surgical History: Hysterectomy Other Surgical History: trigger finger, orif of left knee cap, HIATAL HERNIA, in [facility] in October for COPD,bronchitis , pneumonia. Thyroidectomy (left olobe) - Social History Smoking Status: Former smoker How long have you smoked: 1 Exposure to second hand smoke: No Alcohol Use: None Drug Use: none Patient Lives Alone: Yes Significant Family History: no pertinent family hx - Female History Hx Last Menstrual Period: post Hx Now: No - Nursing Vital Signs Nursing Vital Signs: Initial Vital Signs Temperature 98.7 F 06/27/18 12:08 Pulse Rate 96 H 06/27/18 12:08 Respiratory Rate 18 06/27/18 12:08 Blood Pressure 182/104 06/27/18 12:08 O2 Sat by Pulse Oximetry 98 06/27/18 12:08 Pain Scale Pain Intensity 0 - Physical Exam General Appearance: no apparent distress, alert Eye Exam: PERRL/EOMI, eyes nml inspection Ears, Nose, Throat Exam: normal ENT inspection, TMs normal, pharynx normal, moist mucous membranes Neck Exam: normal inspection, non-tender, supple, full range of motion Respiratory Exam: normal breath sounds, lungs clear, No respiratory distress Cardiovascular Exam: regular rate/rhythm, normal heart sounds, normal peripheral pulses Gastrointestinal/Abdomen Exam: soft, normal bowel sounds, No tenderness, No mass Back Exam: normal inspection, normal range of motion, No CVA tenderness, No vertebral tenderness Extremity Exam: normal inspection, normal range of motion, pelvis stable Neurologic Exam: alert, oriented x 3, cooperative, normal mood/affect, nml cerebellar function, nml station & gait, sensation nml, No motor deficits Skin Exam: normal color, warm, dry, No rash Lymphatic Exam: No adenopathy SpO2 Interpretation: normal SpO2: 98 Oxygen Delivery: Room Air - Course EKG Interpreted by Me: RATE, Sinus Rhythm (RATE 75 WITH LATERAL FLAT T WAVES ) - Radiology Exams Chest X-ray Interpretation: Discussed w/ radiologist, Negative Ordered Tests: Active Orders 24 hr Category Date Time Status Career Transition Specialist STAT Care 06/27/18 12:44 Active EKG-ER Only STAT Care 06/27/18 12:42 Active IV Insertion STAT Care 06/27/18 12:42 Active CHEST 1 VIEW (PORTABLE) Stat Exams 06/27/18 12:44 Completed BLOOD CULTURE Stat Lab 06/27/18 14:35 Received CBC W DIFF Stat Lab 06/27/18 13:00 Completed CMP Stat Lab 06/27/18 13:00 Completed CULTURE,URINE Stat Lab 06/27/18 12:53 Received MAGNESIUM Stat Lab 06/27/18 13:00 Completed NT PRO BNP Stat Lab 06/27/18 13:00 Completed TROPONIN Q3H Lab 06/27/18 13:00 Completed TROPONIN Q3H Lab 06/27/18 16:00 Ordered TROPONIN Q3H Lab 06/27/18 19:00 Ordered TROPONIN Q3H Lab 06/27/18 22:00 Ordered TROPONIN Q3H Lab 06/28/18 01:00 Ordered UA W/RFX UR CULTURE Stat Lab 06/27/18 12:53 Completed Medication Summary Generic Name Dose Route Start Last Admin Trade Name Freq PRN Reason Stop Dose Admin Sodium Chloride 1,000 mls @ 200 mls/hr 06/27/18 12:45 06/27/18 13:09 Sodium Chloride 0.9% 1000 Ml IV 07/27/18 12:44 200 mls/hr .Q5H PRISCILLA Administration Discontinued Medications Generic Name Dose Route Start Last Admin Trade Name Shelly PRN Reason Stop Dose Admin Levofloxacin/Dextrose 500 mg in 100 mls @ 100 mls/hr 06/27/18 13:55 06/27/18 14:12 Levofloxacin 500mg/100ml D5w IV 06/27/18 14:54 100 ml/hr STAT STA 100 mls/hr Administration Levofloxacin/Dextrose Confirm 06/27/18 14:10 Levofloxacin 500mg/100ml D5w Administered 06/27/18 14:11 Dose 500 mg in 100 mls @ ud IV .[facility] Lab/Rad Data: Laboratory Result Diagrams 06/27/18 13:00 06/27/18 13:00 Laboratory Results 06/27/18 06/27/18 06/27/18 Range/Units 13:00 13:00 13:00 WBC 6.0 (4.0-10.5) K/mm3 RBC 5.23 (4.1-5.4) M/mm3 Hgb 15.8 (12.0-16.0) gm/dl Hct 45.6 (35-47) % MCV 87.2 (78-100) fl MCH 30.2 (26-32) pg MCHC 34.6 (32-36) g/dl RDW 13.0 (11.5-14.0) % Plt Count 264 (150-450) K/mm3 MPV 10.2 H (6-9.5) fl Gran % 65.5 (36.0-66.0) % Eos # (Auto) 0.13 (0-0.5) Absolute Lymphs (auto) 1.32 (1.0-4.6) Absolute Monos (auto) 0.59 (0.0-1.3) Lymphocytes % 22.1 L (24.0-44.0) % Monocytes % 9.9 (0.0-12.0) % Eosinophils % 2.2 (0.00-5.0) % Basophils % 0.3 (0.0-0.4) % Absolute Granulocytes 3.90 (1.4-6.9) Basophils # 0.02 (0-0.4) Sodium 137 (137-145) mmol/L Potassium 4.0 (3.5-5.1) mmol/L Chloride 100 (98-107) mmol/L Carbon Dioxide 27 (22-30) mmol/L Anion Gap 14.1 (5-15) MEQ/L BUN 16 (7-17) mg/dL Creatinine 0.74 (0.52-1.04) mg/dL Estimated GFR > 60.0 ML/MIN Glucose 97 (74-106) mg/dL Calcium 9.9 (8.4-10.2) mg/dL Magnesium 2.1 (1.6-2.3) mg/dL Total Bilirubin 1.00 (0.2-1.3) mg/dL AST 33 (14-36) U/L ALT 27 (0-35) U/L Alkaline Phosphatase 90 (38-126) U/L Troponin I < 0.012 (0.000-0.034) ng/mL NT-Pro-B Natriuret Pep 105 (0-1800) pg/mL Serum Total Protein 7.7 (6.3-8.2) g/dL Albumin 4.7 (3.5-5.0) g/dL Urine Color (YELLOW) Urine Appearance (CLEAR) Urine pH (5-6) Ur Specific [place] (1.005-1.025) Urine Protein (Negative) Urine Ketones (NEGATIVE) Urine Blood (0-5) Marlo/ul Urine Nitrite (NEGATIVE) Urine Bilirubin (NEGATIVE) Urine Urobilinogen (0-1) mg/dL Ur Leukocyte Esterase (NEGATIVE) Urine WBC (Auto) (0-5) /HPF Urine RBC (Auto) (0-2) /HPF U Epithel Cells (Auto) (FEW) /HPF Urine Bacteria (Auto) (NEGATIVE) /HPF Amorphous Crystals (NEGATIVE) /HPF Urine Mucus (Auto) (NEGATIVE) /HPF Urine Culture Reflexed (NO) Urine Glucose (NEGATIVE) mg/dL 06/27/18 Range/Units 12:53 WBC (4.0-10.5) K/mm3 RBC (4.1-5.4) M/mm3 Hgb (12.0-16.0) gm/dl Hct (35-47) % MCV (78-100) fl MCH (26-32) pg MCHC (32-36) g/dl RDW (11.5-14.0) % Plt Count (150-450) K/mm3 MPV (6-9.5) fl Gran % (36.0-66.0) % Eos # (Auto) (0-0.5) Absolute Lymphs (auto) (1.0-4.6) Absolute Monos (auto) (0.0-1.3) Lymphocytes % (24.0-44.0) % Monocytes % (0.0-12.0) % Eosinophils % (0.00-5.0) % Basophils % (0.0-0.4) % Absolute Granulocytes (1.4-6.9) Basophils # (0-0.4) Sodium (137-145) mmol/L Potassium (3.5-5.1) mmol/L Chloride (98-107) mmol/L Carbon Dioxide (22-30) mmol/L Anion Gap (5-15) MEQ/L BUN (7-17) mg/dL Creatinine (0.52-1.04) mg/dL Estimated GFR ML/MIN Glucose (74-106) mg/dL Calcium (8.4-10.2) mg/dL Magnesium (1.6-2.3) mg/dL Total Bilirubin (0.2-1.3) mg/dL AST (14-36) U/L ALT (0-35) U/L Alkaline Phosphatase (38-126) U/L Troponin I (0.000-0.034) ng/mL NT-Pro-B Natriuret Pep (0-1800) pg/mL Serum Total Protein (6.3-8.2) g/dL Albumin (3.5-5.0) g/dL Urine Color [place] (YELLOW) Urine Appearance CLOUDY (CLEAR) Urine pH 5.0 (5-6) Ur Specific [place] 1.027 (1.005-1.025) Urine Protein 100 (Negative) Urine Ketones SMALL (NEGATIVE) Urine Blood NEGATIVE (0-5) Marlo/ul Urine Nitrite NEGATIVE (NEGATIVE) Urine Bilirubin SMALL (NEGATIVE) Urine Urobilinogen 4 (0-1) mg/dL Ur Leukocyte Esterase LARGE (NEGATIVE) Urine WBC (Auto) 51-100 (0-5) /HPF Urine RBC (Auto) 0-2 (0-2) /HPF U Epithel Cells (Auto) RARE (FEW) /HPF Urine Bacteria (Auto) MANY (NEGATIVE) /HPF Amorphous Crystals FEW (NEGATIVE) /HPF Urine Mucus (Auto) MANY (NEGATIVE) /HPF Urine Culture Reflexed YES (NO) Urine Glucose NEGATIVE (NEGATIVE) mg/dL - Progress Progress Note: 06/27/18 13:58 ADMINISTERED IV NORMAL SALINE 200ML/HR X 2 AND AFTER 2 SETS OF BLOOD CULTURES LEVAQUIN 500MG IVPB FOR UTI WBC 51-100 06/27/18 13:59, PATIENT REFUSES COUNSELING FOR DEPRESSION BY TURNING LEAF 06/27/18 15:03 Counseled pt/family regarding: lab results, diagnosis, need for follow-up - Departure Time of Disposition: 15:45 Departure Disposition: Home Clinical Impression: URINARY TRACT INFECTION, DEPRESSION Condition: Stable Critical Care Time: No Referrals: KARO ALVA MD [Primary Care Provider] - Additional Instructions: DRINK PLENTY OF FLUIDS. ANTIBIOTIC LEVAQUIN 500MG DAILY FOR 10 DAYS. PYRIDIUM 100MG AFTER MEALS FOR 2 DAYS FOR TREATMENT OF BURNING DISCOMFORT. CONSULT YOUR PRIMARY CARE PROVIDER FOR EVALUATION IN 1 WEEK. Prescriptions: Levofloxacin [Levaquin] 500 mg PO DAILY 10 Days #10 tablet
[2018-06-27 13:11] LABS: BASOPHIL % 0.3 % (0.0-0.4); Basophil (Absolute #) 0.02 (0-0.4); Eosinophil % 2.2 % (0.00-5.0); Eosinophil (Absolute #) 0.13 (0-0.5); Granulocytes % 65.5 % (36.0-66.0); Hematocrit 45.6 % (35-47); Hemoglobin 15.8 gm/dl (12.0-16.0); Lymphocyte (Absolute #) 1.32 (1.0-4.6); Lymphocytes % 22.1 % (24.0-44.0); Mean Cell Volume 87.2 fl (78-100); Mean Corpuscular Hemoglobin 30.2 pg (26-32); Mean Corpuscular Hgb Concent. 34.6 g/dl (32-36); Mean Platelet Volume 10.2 fl (6-9.5); Monocyte (Absolute #) 0.59 (0.0-1.3); Monocytes % 9.9 % (0.0-12.0); Platelet Count 264 K/mm3 (150-450); Red Blood Count 5.23 M/mm3 (4.1-5.4)
--- NOTE | 2018-06-27 13:22 | XRAY ---
Indication: Cough. Comparison: October 18, 2017. Portable chest again demonstrates normal heart and lungs with incidental right mid lung calcified granuloma. Bony thorax intact again with mild osteopenia, degenerative changes, and scoliosis. No new/acute findings.
[2018-06-27 13:36] LABS: Appearance CLOUDY (CLEAR); Bilirubin SMALL (NEGATIVE); Blood NEGATIVE Ery/ul (0-5); Glucose NEGATIVE (NEGATIVE); Ketones SMALL (NEGATIVE); Leukocyte Esterase LARGE (NEGATIVE); Nitrite NEGATIVE (NEGATIVE); Protein,Urine Dip 100 (Negative); Specific Gravity 1.027 (1.005-1.025); Urobilinogen 4 mg/dL (0-1)
[2018-06-27 13:39] LABS: ALBUMIN 4.7 g/dL (3.5-5.0); ALKALINE PHOSPHATASE 90 U/L (38-126); ANION GAP 14.1 MEQ/L (5-15); BLOOD UREA NITROGEN 16 mg/dL (7-17); CHLORIDE 100 mmol/L (98-107); Calcium 9.9 mg/dL (8.4-10.2); Carbon Dioxide 27 mmol/L (22-30); Creatinine 1 0.74 mg/dL (0.52-1.04); Glucose 97 mg/dL (74-106); NT PRO BNP 105 pg/mL (0-1800); SGOT/AST 33 U/L (14-36); SGPT/ALT 27 U/L (0-35); SODIUM 137 mmol/L (137-145); Total Protein 7.7 g/dL (6.3-8.2)
[2018-06-27] MEDS ORDERED: Levofloxacin 500MG/100ML D5W 500 MG/100 ML BAG IV STA (13:55)
[2018-06-27] MEDS ORDERED: Levofloxacin 500MG/100ML D5W 500 MG/100 ML BAG IV ONE (14:10)
[2018-06-27 16:25] VITALS: BP 167/89; PULSE 78; O2SAT 96
== END 2018-06-27 16:14 | disposition home or self-care (01) ==
LOC: ED 12:00
DX: N39.0 Urinary tract infection, site not specified (principal); F32.9 Major depressive disorder, single episode, unspecified; Z79.899 Other long term (current) drug therapy
CPT/HCPCS: 36000; 36415; 71045; 80053; 81001; 83735; 83880; 84484; 85025; 87040; 87077; 87086; 87186; 93005; 93041; 96360; 96365; 99284; J1956

== ENCOUNTER 2018-09-02 17:23 | Emergency (ER) | payer MEDICARE | END 2018-09-02 23:20 | disposition home or self-care (01) | LOC: ED 17:23 ==

== ENCOUNTER 2019-06-14 14:37 | Emergency (ER) | payer MEDICARE ==
[2019-06-14] MEDS ORDERED: PROVENTIL 2.5 MG/3 ML NEB IH ONE ×2 (14:42→14:45)
[2019-06-14] MEDS ORDERED: solu-MEDROL 125 MG IV ONE (14:43)
[2019-06-14] MEDS ORDERED: Sodium Chloride 0.9% 1000 ML 1,000 ML IV SCH (14:45)
[2019-06-14 14:48] LABS: Lactic Acid 1.9 (0.4-2.0)
[2019-06-14] MEDS ORDERED: Sodium Chloride 0.9% 1000 ML 1,000 ML ONE (14:51)
[2019-06-14] MEDS ORDERED: solu-MEDROL 125 MG ONE (14:51)
[2019-06-14 14:54] LABS: BASOPHIL % 0.2 % (0.0-0.4); Basophil (Absolute #) 0.02 (0-0.4); Eosinophil % 3.8 % (0.00-5.0); Eosinophil (Absolute #) 0.33 (0-0.5); Hematocrit 45.2 % (35-47); Hemoglobin 15.8 gm/dl (12.0-16.0); Lymphocyte (Absolute #) 2.61 (1.0-4.6); Lymphocytes % 29.8 % (24.0-44.0); Mean Cell Volume 84.5 fl (78-100); Mean Corpuscular Hemoglobin 29.5 pg (26-32); Mean Platelet Volume 10.7 fl (6-9.5); Monocytes % 11.4 % (0.0-12.0); Neutrophil % 54.8 % (36.0-66.0); Platelet Count 292 K/mm3 (150-450); Red Blood Count 5.35 M/mm3 (4.1-5.4); Red Cell Distribution Width 12.5 % (11.5-14.0); White Blood Count 8.8 K/mm3 (4.0-10.5)
[2019-06-14 15:13] LABS: ALBUMIN 4.6 g/dL (3.5-5.0); ALKALINE PHOSPHATASE 85 U/L (38-126); BLOOD UREA NITROGEN 9 mg/dL (7-17); CHLORIDE 96 mmol/L (98-107); Carbon Dioxide 32 mmol/L (22-30); Creatinine 1 0.61 mg/dL (0.52-1.04); Glucose 101 mg/dL (74-106); NT PRO BNP 81.3 pg/mL (0-1800); SGOT/AST 29 U/L (14-36); SGPT/ALT 19 U/L (0-35); Total Protein 8.2 g/dL (6.3-8.2)
[2019-06-14 15:16] LABS: TROPONIN < 0.012 ng/mL (0.000-0.034)
[2019-06-14 15:39] LABS: ANION GAP 10.9 MEQ/L (5-15); Potassium 3.9 mmol/L (3.5-5.1); SODIUM 135 mmol/L (137-145)
[2019-06-14 15:40] VITALS: BP 148/64; O2SAT 98
[2019-06-14 15:49] LABS: INFLUENZA A NEGATIVE (NEGATIVE); INFLUENZA B NEGATIVE (NEGATIVE); RESPIRATORY SYNCTIAL VIRUS NEGATIVE (Negative)
[2019-06-14 15:57] VITALS: PULSE 68
--- NOTE | 2019-06-14 16:04 | ERPHSYRPT ---
- History of Present Illness Time Seen by Provider: 06/14/19 14:40 Source: patient Exam Limitations: no limitations Patient Subjective Stated Complaint: pt here for increase sob for last couple days, stuffy nose,difficulty swallowing well, no fever, cough Triage Nursing Assessment: pt walked in alert, sob , skin w/d/p. stuffy nose, pt has treatments at home . no edema noted, using o2 at home,shest with wheezes Physician History: ppatient is a 78-year-old female who has a long history of COPD who presents with shortness of breath. This illness started after she became congested nasally and that seemed to move into her chest started 2 days ago. She didn't know home nebs she had no fever chills or sweats she does have sputum which is slimy and dark yellow. She has been doing well recently after a stem cell treatment in in [facility].. Timing/Duration: day(s) (2) Activities at Onset: none Severity of Dyspnea-Max: moderate Severity of Dyspnea-Current: moderate Possible Cause: frequent episodes Modifying Factors: Improves With: coughing, exertion Associated Symptoms: cough, wheezing International travel in last 2 weeks: No Allergies/Adverse Reactions: cephalexin monohydrate [From Keflex] Allergy (Mild, Verified 06/14/19 14:47) Nausea oxycodone HCl [From OxyContin] Allergy (Mild, Verified 06/14/19 14:47) Nausea and Vomiting DIZZY codeine Allergy (Verified 06/14/19 14:47) Nausea and Vomiting iodine Allergy (Verified 06/14/19 14:47) Home Medications: Albuterol Sulfate [Proair Hfa] 2 puffs IH Q2H/PRN PRN 01/29/16 [History] Cetirizine HCl 10 mg PO DAILY 01/29/16 [History] Fluticasone/Vilanterol [Breo Ellipta 100-25 Mcg INH] 1 each IH DAILY 01/29/16 [ History] Lorazepam 0.5 mg [Ativan 0.5 MG] 0.5 mg PO BID PRN 01/29/16 [History] Potassium Chloride 20 meq PO BID 01/29/16 [History] Hydrochlorothiazide 25 mg [hydroDIURIL 25 MG] 25 mg PO DAILY 05/31/16 [ History] Omeprazole 20 MG [Prilosec 20 mg] 20 mg PO DAILY 07/23/16 [History] Linaclotide [Linzess] 290 mcg DAILY 06/14/19 [History] Hx Tetanus, Diphtheria Vaccination/Date Given: Yes Hx Influenza Vaccination/Date Given: No Hx Pneumococcal Vaccination/Date Given: Yes Immunizations Up to Date: Yes - Review of Systems Constitutional: No Fever, No Chills Eyes: No Symptoms Ears, Nose, & Throat: No Symptoms Respiratory: Dyspnea, Dyspnea on Exertion ([place]), Wheezing, No Cough Cardiac: No Chest Pain, No Edema, No Syncope Abdominal/Gastrointestinal: No Abdominal Pain, No Nausea, No Vomiting, No Diarrhea Genitourinary Symptoms: No Dysuria Musculoskeletal: No Back Pain, No Neck Pain Skin: No Rash Neurological: No Dizziness, No Focal Weakness, No Sensory Changes Psychological: No Symptoms Endocrine: No Symptoms All Other Systems: Reviewed and Negative - Past Medical History Pertinent Past Medical History: Yes Neurological History: No Pertinent History ENT History: No Pertinent History Cardiac History: No Pertinent History Respiratory History: Asthma, COPD Endocrine Medical History: No Pertinent History Musculoskeletal History: Rheumatoid Arthritis, Other GI Medical History: GERD, Hernia, Other History: No Pertinent History Psycho-Social History: Anxiety Female Reproductive Disorders: No Pertinent History Other Medical History: Hiatal Hernia, History of backpain, sciatica pain. lung stem cell treatment 2017 - Past Surgical History Past Surgical History: Yes Neuro Surgical History: No Pertinent History Cardiac: No Pertinent History Respiratory: No Pertinent History Gastrointestinal: No Pertinent History Genitourinary: No Pertinent History Musculoskeletal: Orthopedic Surgery Female Surgical History: Hysterectomy Other Surgical History: trigger finger, orif of left knee cap, HIATAL HERNIA, in [facility] in October for COPD,bronchitis , pneumonia. Thyroidectomy (left olobe) - Social History Smoking Status: Never smoker How long have you smoked: 1 Exposure to second hand smoke: No Alcohol Use: None Drug Use: none Patient Lives Alone: No Significant Family History: no pertinent family hx - Female History Hx Last Menstrual Period: post - Nursing Vital Signs Nursing Vital Signs: Initial Vital Signs Temperature 96 F 06/14/19 14:38 Pulse Rate 94 H 06/14/19 14:38 Respiratory Rate 20 06/14/19 14:38 O2 Sat by Pulse Oximetry 97 06/14/19 14:38 Pain Scale Pain Intensity 0 - Physical Exam General Appearance: mild distress, alert Eye Exam: PERRL/EOMI Neck Exam: normal inspection, supple Respiratory Exam: respiratory distress, diminished breath sounds, rhonchi, wheezing Cardiovascular/Chest Exam: normal heart sounds, regular rate/rhythm Abdominal/Gastrointestinal Exam: soft, No tenderness, No distention, No mass Extremity Exam: non-tender, normal range of motion, normal inspection, no calf tenderness, no pedal edema Peripheral Pulses Exam: carotid (R): 2+, carotid (L): 2+ Neurologic Exam: alert, oriented x 3, cooperative, wholesale buyer II-XII nml as tested, sensation nml, No motor deficits Skin Exam: normal color, warm, No dry Lymphatic Exam: No adenopathy SpO2 Interpretation: normal SpO2: 98 O2 Delivery: Room Air - Course Nursing assessment & vital signs reviewed: Yes EKG Interpreted by Me: RATE (80), Sinus Rhythm, NORMAL AXIS, NORMAL INTERVALS, NORMAL QRS Ordered Tests: Active Orders 24 hr Category Date Time Status Chief Merchandising Officer STAT Care 06/14/19 14:44 Active EKG-ER Only STAT Care 06/14/19 14:43 Active CHEST 1 VIEW (PORTABLE) Stat Exams 06/14/19 14:44 Taken CBC W DIFF Stat Lab 06/14/19 14:43 Completed CMP Routine Lab 06/14/19 14:45 Completed CULTURE,SPUTUM Stat Lab 06/14/19 14:44 Uncollected D-DIMER QUANTITATION Stat Lab 06/14/19 15:05 Completed Lactic Acid Stat Lab 06/14/19 14:43 Results NT PRO BNP Routine Lab 06/14/19 14:45 Completed TROPONIN Q3H Lab 06/14/19 14:45 Completed TROPONIN Q3H Lab 06/14/19 17:45 Ordered TROPONIN Q3H Lab 06/14/19 20:45 Ordered TROPONIN Q3H Lab 06/14/19 23:45 Ordered TROPONIN Q3H Lab 06/15/19 02:45 Ordered Respiratory Therapy Assessment DAILY RT 06/14/19 15:05 Completed Medication Summary Generic Name Dose Route Start Last Admin Trade Name Freq PRN Reason Stop Dose Admin Sodium Chloride 1,000 mls @ 100 mls/hr 06/14/19 14:45 06/14/19 14:55 Sodium Chloride 0.9% 1000 Ml IV 07/14/19 14:44 100 mls/hr .Q10H PRISCILLA Administration Discontinued Medications Generic Name Dose Route Start Last Admin Trade Name Shelly PRN Reason Stop Dose Admin Albuterol Sulfate Confirm 06/14/19 14:42 Proventil 2.5 Mg/3 Ml Neb Administered 06/14/19 14:43 Dose 2.5 mg IH .[facility] ONE Albuterol Sulfate 2.5 mg 06/14/19 14:45 Proventil 2.5 Mg/3 Ml Neb IH 06/14/19 14:46 STAT ONE Methylprednisolone Sodium Succinate 125 mg 06/14/19 14:43 06/14/19 14:55 Solu-Medrol 125 Mg IV 06/14/19 14:44 125 mg STAT ONE Administration Methylprednisolone Sodium Succinate Confirm 06/14/19 14:51 Solu-Medrol 125 Mg Administered 06/14/19 14:52 Dose 125 mg .ROUTE .[facility] ONE Lab/Rad Data: Laboratory Result Diagrams 06/14/19 14:43 06/14/19 14:45 Laboratory Results 06/14/19 06/14/19 06/14/19 Range/Units 15:06 15:05 14:45 WBC (4.0-10.5) K/mm3 RBC (4.1-5.4) M/mm3 Hgb (12.0-16.0) gm/dl Hct (35-47) % MCV (78-100) fl MCH (26-32) pg MCHC (32-36) g/dl RDW (11.5-14.0) % Plt Count (150-450) K/mm3 MPV (6-9.5) fl Gran % (36.0-66.0) % Eos # (Auto) (0-0.5) Absolute Lymphs (auto) (1.0-4.6) Absolute Monos (auto) (0.0-1.3) Lymphocytes % (24.0-44.0) % Monocytes % (0.0-12.0) % Eosinophils % (0.00-5.0) % Basophils % (0.0-0.4) % Absolute Granulocytes (1.4-6.9) Basophils # (0-0.4) D-Dimer 460 (215-500) ng/mL Sodium 135 L (137-145) mmol/L Potassium 3.9 (3.5-5.1) mmol/L Chloride 96 L (98-107) mmol/L Carbon Dioxide 32 H (22-30) mmol/L Anion Gap 10.9 (5-15) MEQ/L BUN 9 (7-17) mg/dL Creatinine 0.61 (0.52-1.04) mg/dL Estimated GFR > 60.0 ML/MIN Glucose 101 (74-106) mg/dL Lactic Acid (0.4-2.0) Calcium 10.0 (8.4-10.2) mg/dL Total Bilirubin 0.50 (0.2-1.3) mg/dL AST 29 (14-36) U/L ALT 19 (0-35) U/L Alkaline Phosphatase 85 (38-126) U/L Troponin I < 0.012 (0.000-0.034) ng/mL NT-Pro-B Natriuret Pep 81.3 (0-1800) pg/mL Serum Total Protein 8.2 (6.3-8.2) g/dL Albumin 4.6 (3.5-5.0) g/dL Theophylline (10-20) ug/mL Influenza Type A Ag NEGATIVE (NEGATIVE) Influenza Type B Ag NEGATIVE (NEGATIVE) RSV (PCR) NEGATIVE (Negative) 06/14/19 06/14/19 06/14/19 Range/Units 14:43 14:43 14:30 WBC 8.8 (4.0-10.5) K/mm3 RBC 5.35 (4.1-5.4) M/mm3 Hgb 15.8 (12.0-16.0) gm/dl Hct 45.2 (35-47) % MCV 84.5 (78-100) fl MCH 29.5 (26-32) pg MCHC 35.0 (32-36) g/dl RDW 12.5 (11.5-14.0) % Plt Count 292 (150-450) K/mm3 MPV 10.7 H (6-9.5) fl Gran % 54.8 (36.0-66.0) % Eos # (Auto) 0.33 (0-0.5) Absolute Lymphs (auto) 2.61 (1.0-4.6) Absolute Monos (auto) 1.00 (0.0-1.3) Lymphocytes % 29.8 (24.0-44.0) % Monocytes % 11.4 (0.0-12.0) % Eosinophils % 3.8 (0.00-5.0) % Basophils % 0.2 (0.0-0.4) % Absolute Granulocytes 4.80 (1.4-6.9) Basophils # 0.02 (0-0.4) D-Dimer (215-500) ng/mL Sodium (137-145) mmol/L Potassium (3.5-5.1) mmol/L Chloride (98-107) mmol/L Carbon Dioxide (22-30) mmol/L Anion Gap (5-15) MEQ/L BUN (7-17) mg/dL Creatinine (0.52-1.04) mg/dL Estimated GFR ML/MIN Glucose (74-106) mg/dL Lactic Acid 1.9 (0.4-2.0) Calcium (8.4-10.2) mg/dL Total Bilirubin (0.2-1.3) mg/dL AST (14-36) U/L ALT (0-35) U/L Alkaline Phosphatase (38-126) U/L Troponin I (0.000-0.034) ng/mL NT-Pro-B Natriuret Pep (0-1800) pg/mL Serum Total Protein (6.3-8.2) g/dL Albumin (3.5-5.0) g/dL Theophylline < 1.0 L (10-20) ug/mL Influenza Type A Ag (NEGATIVE) Influenza Type B Ag (NEGATIVE) RSV (PCR) (Negative) - Progress Progress: improved Air Movement: good - Departure Departure Disposition: Home Clinical Impression: COPD exacerbation Condition: Stable Critical Care Time: No Referrals: KARO ALVA MD [Primary Care Provider] - Instructions: Chronic Obstructive Pulmonary Disease Prescriptions: Amoxicillin 875 mg PO BID 10 Days #20 tablet Prednisone 10 mg [Deltasone 10 mg] 20 mg PO TID #12 tablet
--- NOTE | 2019-06-14 21:20 | XRAY ---
Indication: Cough and congestion. Comparison: September 02, 2018. Portable chest again demonstrates normal heart and lungs with incidental right midlung calcified granuloma. Bony thorax intact again with mild osteopenia, degenerative changes, and scoliosis. Impression: Stable nonacute chest with chronic features.
== END 2019-06-14 16:27 | disposition home or self-care (01) ==
LOC: ED 14:37
DX: J44.1 Chronic obstructive pulmonary disease with (acute) exacerbation (principal); Z79.899 Other long term (current) drug therapy
CPT/HCPCS: 36000; 36415; 71045; 80053; 80198; 83605; 83880; 84484; 85025; 85379; 87631; 93005; 93041; 96374; 99284; J2930; J7609; A9270-GY

== ENCOUNTER 2020-10-01 17:22 | Emergency (ER) | payer MEDICARE ==
[2020-10-01] MEDS ORDERED: TORAdol 30 mg Injection IM ONE (17:36)
[2020-10-01] MEDS ORDERED: NALBUPHINE HCL 10 MG/1 ML INJECTION IM ONE (17:36)
[2020-10-01] MEDS ORDERED: Nubain 10 MG/ML ONE (17:42)
[2020-10-01] MEDS ORDERED: TORAdol 30 mg Injection ONE (17:42)
--- NOTE | 2020-10-01 17:45 | ERPHSYRPT ---
- History of Present Illness Time Seen by Provider: 10/01/20 17:38 Source: patient Exam Limitations: no limitations Patient Subjective Stated Complaint: pt here for pain to left hip and pelvis, pt states at 4 she tripped on a brick and fell, went to another hospital and dx with pelvic fx, she states she is unable to get into her house because she can not walk Triage Nursing Assessment: pt alert, resp easy , face mask in place, skin w/d/p. pt assist of one to get from wc to bed, she is unable to bear wt on left leg, no bruising or abrasions noted Physician History: pt here for pain to left hip and pelvis, pt states at 4 she tripped on a brick and fell, went to another hospital and dx with pelvic fx, she states she is unable to get into her house because she can not walk Occurred: just prior to arrival Reason for Fall: tripped Injuries/Pain Location: pelvis Loss of Consciousness: no loss of consciousness Allergies/Adverse Reactions: cephalexin monohydrate [From Keflex] Allergy (Mild, Verified 06/14/19 14:47) Nausea oxycodone HCl [From OxyContin] Allergy (Mild, Verified 06/14/19 14:47) Nausea and Vomiting DIZZY codeine Allergy (Verified 06/14/19 14:47) Nausea and Vomiting iodine Allergy (Verified 06/14/19 14:47) Home Medications: Albuterol Sulfate [Proair Hfa] 2 puffs IH Q2H/PRN PRN 01/29/16 [History] Cetirizine HCl 10 mg PO DAILY 01/29/16 [History] Fluticasone/Vilanterol [Breo Ellipta 100-25 Mcg INH] 1 each IH DAILY 01/29/16 [History] Lorazepam 0.5 mg [Ativan 0.5 MG] 0.5 mg PO BID PRN 01/29/16 [History] Potassium Chloride 20 meq PO BID 01/29/16 [History] Hydrochlorothiazide 25 mg [hydroDIURIL 25 MG] 25 mg PO DAILY 05/31/16 [History] Omeprazole 20 MG [Prilosec 20 mg] 20 mg PO DAILY 07/23/16 [History] Linaclotide [Linzess] 290 mcg DAILY 06/14/19 [History] Hx Tetanus, Diphtheria Vaccination/Date Given: Yes Hx Influenza Vaccination/Date Given: No Hx Pneumococcal Vaccination/Date Given: Yes Immunizations Up to Date: Yes Travel Risk - International Travel Have you traveled outside of the country in past 3 weeks: No - Coronavirus Screening Are you exhibiting any of the following symptoms?: No Close contact with a COVID-19 positive Pt in past 14-21 Days: No - Review of Systems Constitutional: No Symptoms Eyes: No Symptoms Ears, Nose, & Throat: No Symptoms Respiratory: No Symptoms Cardiac: No Symptoms Abdominal/Gastrointestinal: No Symptoms Genitourinary Symptoms: No Symptoms Musculoskeletal: Fall Skin: No Symptoms Neurological: No Symptoms Psychological: No Symptoms - Past Medical History Pertinent Past Medical History: Yes Neurological History: No Pertinent History ENT History: No Pertinent History Cardiac History: No Pertinent History Respiratory History: Asthma, COPD Endocrine Medical History: No Pertinent History Musculoskeletal History: Rheumatoid Arthritis, Other GI Medical History: GERD, Hernia, Other History: No Pertinent History Psycho-Social History: Anxiety Female Reproductive Disorders: No Pertinent History Other Medical History: Hiatal Hernia, History of backpain, sciatica pain. lung stem cell treatment 2017 - Past Surgical History Past Surgical History: Yes Neuro Surgical History: No Pertinent History Cardiac: No Pertinent History Respiratory: No Pertinent History Gastrointestinal: No Pertinent History Genitourinary: No Pertinent History Musculoskeletal: Orthopedic Surgery Female Surgical History: Hysterectomy Other Surgical History: trigger finger, orif of left knee cap, HIATAL HERNIA, in [facility] in October for COPD,bronchitis , pneumonia. Thyroidectomy (left olobe) - Social History Smoking Status: Never smoker How long have you smoked: 1 Exposure to second hand smoke: No Alcohol Use: None Drug Use: none Patient Lives Alone: No Significant Family History: no pertinent family hx - Female History Hx Last Menstrual Period: post Hx Now: No - Nursing Vital Signs Nursing Vital Signs: Initial Vital Signs Temperature 97.2 F 10/01/20 17:25 Pulse Rate 78 10/01/20 17:25 Respiratory Rate 22 10/01/20 17:25 Blood Pressure 164/120 10/01/20 17:25 O2 Sat by Pulse Oximetry 98 10/01/20 17:25 Pain Scale Pain Intensity 7 - Gabriela Coma Score Best Eye Response ([place]): (4) open spontaneously Best Verbal Response (Gabriela): (5) oriented Best Motor Response (Gabriela): (6) obeys commands [place] Total: 15 - Physical Exam General Appearance: no apparent distress, alert Head Injury: no evidence of injury Eye Exam: PERRL/EOMI ENT Exam: airway nml Neck Exam: normal inspection, No tenderness Respiratory/Chest Exam: normal breath sounds, No chest tenderness, No respiratory distress Cardiovascular Exam: normal heart sounds, regular rate/rhythm Gastrointestinal Exam: soft, No tenderness, No distention, No guarding, No ecchymosis Back Exam: normal inspection, No vertebral tenderness Extremity Exam: normal inspection, normal range of motion, pelvis stable, No deformities Neurologic Exam: alert, oriented x 3, cooperative, sensation nml, No motor deficits Skin Exam: normal color, warm, dry SpO2: 98 - Course Nursing assessment & vital signs reviewed: Yes Ordered Tests: Medication Summary Generic Name Dose Route Start Last Admin Trade Name Freq PRN Reason Stop Dose Admin Ketorolac Tromethamine 60 mg 10/01/20 17:36 Toradol 30 Mg Injection IM 10/01/20 17:37 STAT ONE Nalbuphine HCl 10 mg 10/01/20 17:36 Nalbuphine Hcl 10 Mg/1 Ml Injection IM 10/01/20 17:37 STAT ONE X-ray done at [facility] of pelvis showed left pubis rami fracture nondisplaced. - Progress Progress: improved, pain not gone completely Counseled pt/family regarding: diagnosis, need for follow-up - Departure Departure Disposition: Home Clinical Impression: Fracture of left inferior pubic ramus Qualifiers: Encounter type: subsequent encounter Fracture type: closed Fracture healing: with routine healing Qualified Code(s): S32.592D - Other specified fracture of left pubis, subsequent encounter for fracture with routine healing Condition: Stable Critical Care Time: No Referrals: KARO ALVA MD [Primary Care Provider] - Instructions: Preventing Falls, Pelvic Fracture (DC) Additional Instructions: Discharge/Care Plan CASSIE KEVIN was seen on 10/01/20 in the Emergency Room. The patient was counseled regarding Diagnosis,Lab results, Imaging studies, need for follow up and when to return to the Emergency Room. Prescriptions given: Discharge Note I have spoken with the patient and/or caregivers. I have explained the patient's condition, diagnosis and treatment plan based on the information available to me at this time. I have answered the patient's and/or caregiver's questions and addressed any concerns. The patient and/or caregivers have as good understanding of the patient's diagnosis, condition and treatment plan as can be expected at this point. The vital signs have been stable. The patient's condition is stable and appropriate for discharge from the emergency department. The patient will pursue further outpatient evaluation with the primary care physician or other designated or consulting physician as outlined in the discharge instructions. The patient and/or caregivers are agreeable to this plan of care and follow-up instructions have been explained in detail. The patient and/or caregivers have received these instruction. The patient/and or caregivers are aware that any significant change in condition or worsening of symptoms should prompt an immediate return to this or the closest emergency department or call 911. DORITACASSIE ASCENCIO was seen on 10/01/20 n the Emergency Room. At that time you were treated for an emergent condition, during your visit Laboratory, Radiology and/or other procedures may have been ordered. It is very important that you follow-up with your Primary Care Physician KARO ALVA within the next 24-48 hours to review your Emergency Room visit and the final results of testing that was ordered. Some test results such as Urine Cultures, Blood Cultures, and other cultures if ordered will not be finalized for 24-48 hours. If you do not have a Primary Care Provider please call the medical records department at [phone] ext [phone] to obtain a copy of your results or you may sign into our patient portal to obtain these results by visiting us @ [email or web address] and completing the following steps: 1. Click on the Patient Portal link 2. Click the Patient Self Enrollment Link to complete the enrollment form and entering your 3. Once the enrollment form is completed you will receive an email with a temporary ID and password at the email address you provided. 4. Next choose a user name and password. Your user name must be at least 4 characters long and your password must be at least 4 characters long. 5. Choose a security question from the list and provide your answer to the question. If you already have signed into the Health Portal you may access your Health Care Information 04/02 by the following steps: 1. Login to our website @ [email or web address] 2. Enter your original user name and password. FAQS The [facility] Health Portal is an online tool that contains your Lab Results, Radiology Reports, Visit History, Discharge Instructions and Health Summary Lab and Radiology Results will not be available for 72 hours on the portal. The Portal is a secure site, passwords are encryted and URLs are re-written so they cannot be copied and pasted. You and authorized family members are the only ones who can access your Portal. Also there is a timeout feature that protects your information if you leave the Portal page open. If you have technical difficulty please use the Contact Us link on the page this will allow you to submit any questions you have regarding the Portal or you may contact the Medical Record Department at [phone] ext [phone]. Prescriptions: Nabumetone 500 mg PO BID #15 tablet
[2020-10-01] MEDS ORDERED: ZOFRAN ODT 4 MG PO ONE (18:07)
[2020-10-01] MEDS ORDERED: ZOFRAN ODT 4 MG ONE (18:08)
[2020-10-01 18:31] VITALS: BP 173/62; PULSE 65; O2SAT 97
== END 2020-10-01 19:02 | disposition home or self-care (01) ==
LOC: ED 17:22
DX: S32.592D Other specified fracture of left pubis, subsequent encounter for fracture with routine healing (principal); R10.2 Pelvic and perineal pain; M25.552 Pain in left hip; W18.09XA Striking against other object with subsequent fall, initial encounter; Z79.899 Other long term (current) drug therapy; J44.9 Chronic obstructive pulmonary disease, unspecified
CPT/HCPCS: 96372; 99284; J1885; J2300; Q0162

== ENCOUNTER 2022-02-20 16:18 | Emergency (ER) | payer MEDICARE ==
[2022-02-20 16:49] VITALS: O2SAT 97
--- NOTE | 2022-02-20 16:49 | ERPHSYRPT ---
- History of Present Illness Time Seen by Provider: 02/20/22 16:45 Source: patient Exam Limitations: no limitations Physician History: Patient is a 81-year-old female sent to our ED by her primary care physician for application of a rigid cervical collar. Patient has been experiencing some neck discomfort. Patient followed up with her primary care doctor who ordered an MRI. MRI revealed a old nondisplaced type II odontoid fracture. Patient denies any history of trauma. Patient states she has been experiencing some intermittent headaches. Patient feels well at this time. Patient declined pain medication. Symptoms are minimal at this time. Patient voices no other complaints or concerns at this time. Timing/Duration: today Severity: mild Modifying Factors: Improves With: nothing Associated Symptoms: denies symptoms Allergies/Adverse Reactions: cephalexin monohydrate [From Keflex] Allergy (Mild, Verified 02/20/22 16:53) Nausea oxycodone HCl [From OxyContin] Allergy (Mild, Verified 02/20/22 16:53) Nausea and Vomiting DIZZY codeine Allergy (Verified 02/20/22 16:53) Nausea and Vomiting iodine Allergy (Verified 02/20/22 16:53) Home Medications: Albuterol Sulfate [Proair Hfa] 2 puffs IH Q2H/PRN PRN 01/29/16 [History] Cetirizine HCl 10 mg PO DAILY 01/29/16 [History] Fluticasone/Vilanterol [Breo Ellipta 100-25 Mcg INH] 1 each IH DAILY 01/29/16 [History] Lorazepam 0.5 mg [Ativan 0.5 MG] 0.5 mg PO BID PRN 01/29/16 [History] Potassium Chloride 20 meq PO BID 01/29/16 [History] Hydrochlorothiazide 25 mg [hydroDIURIL 25 MG] 25 mg PO DAILY 05/31/16 [History] Omeprazole 20 MG [Prilosec 20 mg] 20 mg PO DAILY 07/23/16 [History] Linaclotide [Linzess] 290 mcg DAILY 06/14/19 [History] Hx Tetanus, Diphtheria Vaccination/Date Given: Yes Hx Influenza Vaccination/Date Given: No Hx Pneumococcal Vaccination/Date Given: Yes - Review of Systems Constitutional: No Symptoms, No Fever, No Chills Eyes: No Symptoms Ears, Nose, & Throat: No Symptoms Respiratory: No Symptoms, No Cough, No Dyspnea Cardiac: No Symptoms, No Chest Pain, No Edema, No Syncope Abdominal/Gastrointestinal: No Symptoms, No Abdominal Pain, No Nausea, No Vomiting, No Diarrhea Genitourinary Symptoms: No Symptoms, No Dysuria Musculoskeletal: No Symptoms, No Back Pain, No Neck Pain Skin: No Symptoms, No Rash Neurological: No Symptoms, No Dizziness, No Focal Weakness, No Sensory Changes Psychological: No Symptoms Endocrine: No Symptoms Hematologic/Lymphatic: No Symptoms Immunological/Allergic: No Symptoms All Other Systems: Reviewed and Negative - Past Medical History Pertinent Past Medical History: Yes Neurological History: No Pertinent History ENT History: No Pertinent History Cardiac History: No Pertinent History Respiratory History: Asthma, COPD Endocrine Medical History: No Pertinent History Musculoskeletal History: Rheumatoid Arthritis, Other GI Medical History: GERD, Hernia, Other History: No Pertinent History Psycho-Social History: Anxiety Female Reproductive Disorders: No Pertinent History Other Medical History: Hiatal Hernia, History of backpain, sciatica pain. lung stem cell treatment 2017 - Past Surgical History Past Surgical History: Yes Neuro Surgical History: No Pertinent History Cardiac: No Pertinent History Respiratory: No Pertinent History Gastrointestinal: No Pertinent History Genitourinary: No Pertinent History Musculoskeletal: Orthopedic Surgery Female Surgical History: Hysterectomy Other Surgical History: trigger finger, orif of left knee cap, HIATAL HERNIA, in [facility] in October for COPD,bronchitis , pneumonia. Thyroidectomy (left olobe) - Social History Smoking Status: Never smoker How long have you smoked: 1 Exposure to second hand smoke: No Alcohol Use: None Drug Use: none Patient Lives Alone: No Significant Family History: no pertinent family hx - Nursing Vital Signs Nursing Vital Signs: Initial Vital Signs Pulse Rate 64 02/20/22 16:40 Blood Pressure 132/115 02/20/22 16:40 O2 Sat by Pulse Oximetry 97 02/20/22 16:40 Pain Scale Pain Intensity 6 - Physical Exam General Appearance: no apparent distress, alert Eye Exam: PERRL/EOMI, eyes nml inspection Ears, Nose, Throat Exam: normal ENT inspection, TMs normal, pharynx normal, moist mucous membranes Neck Exam: normal inspection, non-tender, supple, full range of motion Respiratory Exam: normal breath sounds, lungs clear, airway intact, No chest tenderness, No respiratory distress Cardiovascular Exam: regular rate/rhythm, normal heart sounds, normal peripheral pulses Gastrointestinal/Abdomen Exam: soft, normal bowel sounds, No tenderness, No mass Back Exam: normal inspection, normal range of motion, No CVA tenderness, No vertebral tenderness Extremity Exam: normal inspection, normal range of motion, pelvis stable Neurologic Exam: alert, oriented x 3, cooperative, normal mood/affect, nml cerebellar function, nml station & gait, sensation nml, No motor deficits Skin Exam: normal color, warm, dry, No rash Lymphatic Exam: No adenopathy SpO2: 97 O2 Delivery: Room Air - Course Nursing assessment & vital signs reviewed: Yes Ordered Tests: Active Orders 24 hr Category Date Time Status Cervical Collar Application STAT Care 02/20/22 16:53 Active - Progress Progress: improved Progress Note: MRI ordered by patient's primary care doctor reveals a nondisplaced nonunited old type II odontoid fracture. We contacted neurosurgical services Dr. Farrukh Tiwari (Neurosurgeon) from [facility]. We spoke to the neurosurgeons nurse practitioner and explained the situation. She advised a rigid cervical collar and follow-up with neurosurgeon. Patient has no symptoms. No upper extremity numbness tingling or weakness. No neurodeficits. No headache at this time. No neck pain at this time. Neuro surgical office states that patient should be sent back to her primary care doctors office. The primary care doctor will have to place a referral for a formal clinic follow-up. Portions of this note were created with voice recognition technology. 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 Eldridge so that she can make a formal referral to neurosurgery. Please follow-up within 48 hours. Please keep the cervical collar on at all times until advised otherwise by neurosurgery Discharge/Care Plan CASSIE KEVIN was seen on 02/20/22 in the Emergency Room. The patient was counseled regarding Diagnosis,Lab results, Imaging studies, need for follow up and when to return to the Emergency Room. Prescriptions given: Discharge Note I have spoken with the patient and/or caregivers. I have explained the patient's condition, diagnosis and treatment plan based on the information available to me at this time. I have answered the patient's and/or caregiver's questions and addressed any concerns. The patient and/or caregivers have as good understanding of the patient's diagnosis, condition and treatment plan as can be expected at this point. The vital signs have been stable. The patient's condition is stable and appropriate for discharge from the emergency department. The patient will pursue further outpatient evaluation with the primary care physician or other designated or consulting physician as outlined in the discharge instructions. The patient and/or caregivers are agreeable to this plan of care and follow-up instructions have been explained in detail. The patient and/or caregivers have received these instruction. The patient/and or caregivers are aware that any significant change in condition or worsening of symptoms should prompt an immediate return to this or the closest emergency department or call 911.
[2022-02-20 16:53] VITALS: BP 132/115; PULSE 64
== END 2022-02-20 17:02 | disposition home or self-care (01) ==
LOC: ED 16:18
DX: S12.112K Nondisplaced Type II dens fracture, subsequent encounter for fracture with nonunion (principal); M54.2 Cervicalgia; J44.9 Chronic obstructive pulmonary disease, unspecified; Z79.899 Other long term (current) drug therapy
CPT/HCPCS: 72141; 99282

== ENCOUNTER 2022-08-16 19:58 | Emergency (ER) | payer MEDICARE ==
[2012-07-25 10:26] VITALS: BP 132/71
== END 2022-08-16 20:28 | disposition left against medical advice (07) ==
LOC: ED 19:58
DX: F45.9 Somatoform disorder, unspecified (principal)
CPT/HCPCS: 99281; G0463

== ENCOUNTER 2023-01-28 19:15 | Emergency (ER) | payer MEDICARE ==
--- NOTE | 2023-01-28 19:45 | ERPHSYRPT ---
- History of Present Illness Source: patient, EMS Exam Limitations: other (Poor historian) Patient Subjective Stated Complaint: pt states "My AC hasn't been working well and the air quality is really affecting my lungs. I have been short of breath for a while. I went to and got z-pack and a shot of steriod." Triage Nursing Assessment: pt presents to ED via medic 1, pt alert and oriented x3, skin pwd, lung sounds clear and equal throughout, pt has hx asthma and COPD, pt is not oxygen dependent, pt was tested for flu/covid/rsv, and strep, pt believes her sodium is low Physician History: 82 yo WF w dyspnea x 6 days. Pt states that dyspnea is worse w exertion. She has a cough which is getting more productive. Chest pain/fever/coryza/N/V/ D/melena/hematochezia are all denied. She has a h/o COPD but has never smoked and does not have home O2. Seen in [facility] last week and a Z-ha was prescribed. Timing/Duration: day(s) (6 days) Activities at Onset: rest Severity of Dyspnea-Max: moderate Severity of Dyspnea-Current: mild Possible Cause: occasional episodes Modifying Factors: Improves With: activity, coughing Associated Symptoms: cough Allergies/Adverse Reactions: cephalexin monohydrate [From Keflex] Allergy (Mild, Verified 01/28/23 19:20) Nausea oxycodone HCl [From OxyContin] Allergy (Mild, Verified 01/28/23 19:20) Nausea and Vomiting DIZZY codeine Allergy (Verified 01/28/23 19:20) Nausea and Vomiting iodine Allergy (Verified 01/28/23 19:20) Home Medications: Albuterol Sulfate [Proair Hfa] 2 puffs IH Q2H/PRN PRN 01/29/16 [History] Cetirizine HCl 10 mg PO DAILY 01/29/16 [History] Fluticasone/Vilanterol [Breo Ellipta 100-25 Mcg INH] 1 each IH DAILY 01/29/16 [History] Lorazepam 0.5 mg [Ativan 0.5 MG] 1 mg PO TID 01/29/16 [History] Potassium Chloride 10 meq PO BID 01/29/16 [History] Hydrochlorothiazide 25 mg [hydroDIURIL 25 MG] 25 mg PO DAILY 05/31/16 [History] Omeprazole 20 MG [Prilosec 20 mg] 20 mg PO BID 07/23/16 [History] Linaclotide [Linzess] 290 mcg PO DAILY 06/14/19 [History] Azithromycin [Azithromycin 250 mg Pack] 250 mg PO DAILY 01/28/23 [History] PANTOPRAZOLE 40 mg Tablet [Protonix 40MG Tablet] 40 mg PO BID 01/28/23 [History] Trazodone HCl 50 mg [Desyrel 50 mg] 100 mg PO HS 01/28/23 [History] Hx Tetanus, Diphtheria Vaccination/Date Given: Yes Hx Influenza Vaccination/Date Given: No Hx Pneumococcal Vaccination/Date Given: Yes Immunizations Up to Date: Yes Travel Risk - International Travel Have you traveled outside of the country in past 3 weeks: No - Coronavirus Screening Are you exhibiting any of the following symptoms?: No Close contact with a COVID-19 positive Pt in past 14-21 Days: No - Vaccine Status Have you recieved a Covid-19 vaccination: Yes Cane Weigher: Unknown - Vaccination Dates Dates if Unknown: 2020 - Review of Systems Constitutional: No Symptoms, Malaise Eyes: No Symptoms Ears, Nose, & Throat: No Symptoms, Painful Swallowing Respiratory: Cough, Dyspnea on Exertion ([place]) Cardiac: No Symptoms Abdominal/Gastrointestinal: No Symptoms Genitourinary Symptoms: No Symptoms Musculoskeletal: No Symptoms Skin: No Symptoms Neurological: No Symptoms Psychological: No Symptoms Endocrine: No Symptoms Hematologic/Lymphatic: No Symptoms Immunological/Allergic: No Symptoms - Past Medical History Pertinent Past Medical History: Yes Neurological History: No Pertinent History ENT History: No Pertinent History Cardiac History: No Pertinent History Respiratory History: Asthma, COPD Endocrine Medical History: No Pertinent History Musculoskeletal History: Rheumatoid Arthritis, Other GI Medical History: GERD, Hernia, Other History: No Pertinent History Psycho-Social History: Anxiety Female Reproductive Disorders: No Pertinent History Other Medical History: Hiatal Hernia, History of backpain, sciatica pain. lung stem cell treatment 2017 - Past Surgical History Past Surgical History: Yes Neuro Surgical History: No Pertinent History Cardiac: No Pertinent History Respiratory: No Pertinent History Gastrointestinal: No Pertinent History Genitourinary: No Pertinent History Musculoskeletal: Orthopedic Surgery Female Surgical History: Hysterectomy Other Surgical History: trigger finger, orif of left knee cap, HIATAL HERNIA, in [facility] in October for COPD,bronchitis , pneumonia. Thyroidectomy (left olobe) - Social History Smoking Status: Never smoker How long have you smoked: 1 Exposure to second hand smoke: No Alcohol Use: None Drug Use: none Patient Lives Alone: No Significant Family History: no pertinent family hx - Nursing Vital Signs Nursing Vital Signs: Initial Vital Signs Pulse Rate 88 01/28/23 19:20 Respiratory Rate 17 01/28/23 19:20 Blood Pressure 160/88 01/28/23 19:20 O2 Sat by Pulse Oximetry 96 01/28/23 19:20 Pain Scale Pain Intensity 0 Hypertensive - Physical Exam General Appearance: no apparent distress, anxiety Eye Exam: PERRL/EOMI, eyes nml inspection Ears, Nose, Throat Exam: hearing grossly normal, normal ENT inspection, normal pharynx Neck Exam: normal inspection, non-tender, supple, full range of motion, No Brudzinski, No Kernig's, No meningismus Respiratory Exam: normal breath sounds, lungs clear, airway intact, No respiratory distress Cardiovascular/Chest Exam: normal heart sounds, regular rate/rhythm, normal peripheral pulses, No murmur Abdominal/Gastrointestinal Exam: soft, normal bowel sounds, No tenderness Extremity Exam: non-tender, normal range of motion, normal inspection, normal capillary refill, no calf tenderness, no pedal edema Peripheral Pulses Exam: carotid (R): 2+, carotid (L): 2+ Neurologic Exam: alert, oriented x 3, cooperative, pull up hand II-XII nml as tested, normal mood/affect, sensation nml Skin Exam: normal color, warm, dry Lymphatic Exam: No adenopathy SpO2 Interpretation: normal SpO2: 99 O2 Delivery: Room Air - Course Nursing assessment & vital signs reviewed: Yes EKG Interpreted by Me: RATE (Sinus tach/Rate 101/prolonged QTc/No acute ST segment changes) - Radiology Exams Chest X-ray Interpretation: Interpreted by me (Possible RLL infiltrate) - CT Exams Chest CT Interpretation: Discussed w/radiologist (CT chest-nothing acute) Ordered Tests: Active Orders 24 hr Category Date Time Status IV Insertion STAT Care 01/28/23 19:45 Completed CHEST 1 VIEW (PORTABLE) Stat Exams 01/28/23 19:39 Taken CHEST WITHOUT CONTRAST [CT] Stat Exams 01/28/23 20:27 Taken CBC W DIFF Stat Lab 01/28/23 19:50 Completed CMP Stat Lab 01/28/23 19:50 Completed MAGNESIUM Stat Lab 01/28/23 19:50 Completed NT PRO BNPII Stat Lab 01/28/23 19:50 Completed PROTIME WITH INR Stat Lab 01/28/23 19:50 Completed PTT Stat Lab 01/28/23 19:50 Completed TROPONIN Q4H Lab 01/28/23 19:50 Completed Medication Summary Discontinued Medications Generic Name Dose Route Start Last Admin Trade Name Shelly PRN Reason Stop Dose Admin Sodium Chloride 500 mls @ 500 mls/hr 01/28/23 22:05 01/28/23 23:39 Sodium Chloride 0.9% 500 Ml IV 01/28/23 23:04 Infused .Q1H ONE Infusion Sodium Chloride Confirm 01/28/23 22:30 Sodium Chloride 0.9% 500 Ml Administered 01/28/23 22:31 Dose 500 mls @ ud IV .STK-MED ONE Lab/Rad Data: Laboratory Result Diagrams 01/28/23 19:50 01/28/23 19:50 Laboratory Results 01/28/23 01/28/23 01/28/23 Range/Units 19:50 19:50 19:50 WBC (4.0-10.5) x10^3/uL RBC (4.1-5.4) x10^6/uL Hgb (12.0-16.0) g/dL Hct (35-47) % MCV (78-100) fL MCH (26-32) pg MCHC (32-36) g/dL RDW (11.5-14.0) % Plt Count (150-450) x10^3/uL MPV (7.5-11.0) fL Gran % (36.0-66.0) % Immature Gran % (Auto) (0.00-0.4) % Nucleat RBC Rel Count (0.00-0.1) % Eos # (Auto) (0-0.5) x10^3/uL Immature Gran # (Auto) (0.00-0.03) x10^3u/L Absolute Lymphs (auto) (1.0-4.6) x10^3/uL Absolute Monos (auto) (0.0-1.3) x10^3/uL Absolute Nucleated RBC (0.00-0.01) x10^3u/L Lymphocytes % (24.0-44.0) % Monocytes % (0.0-12.0) % Eosinophils % (0.00-5.0) % Basophils % (0.0-0.4) % Absolute Granulocytes (1.4-6.9) x10^3/uL Basophils # (0-0.4) x10^3/uL PT 10.5 (9.4-12.5) SECONDS INR 0.96 (0.8-3.0) APTT 28.5 (25.1-36.5) SECONDS Sodium 128 L (137-145) mmol/L Potassium 3.4 L (3.5-5.1) mmol/L Chloride 93 L (98-107) mmol/L Carbon Dioxide 26 (22-30) mmol/L Anion Gap 13.4 (5-15) MEQ/L BUN 13 (7-17) mg/dL Creatinine 0.54 (0.52-1.04) mg/dL Estimated GFR > 60.0 ML/MIN Glucose 123 H (74-106) mg/dL Calcium 9.2 (8.4-10.2) mg/dL Magnesium 1.7 (1.6-2.3) mg/dL Total Bilirubin 0.60 (0.2-1.3) mg/dL AST 27 (14-36) U/L ALT 19 (0-35) U/L Alkaline Phosphatase 102 (38-126) U/L Troponin I < 0.012 (0.000-0.034) ng/mL NT-Pro-B Natriuret Pep 92.5 (<300) pg/mL Serum Total Protein 7.4 (6.3-8.2) g/dL Albumin 4.3 (3.5-5.0) g/dL 01/28/23 Range/Units 19:50 WBC 7.8 (4.0-10.5) x10^3/uL RBC 4.87 (4.1-5.4) x10^6/uL Hgb 14.7 (12.0-16.0) g/dL Hct 42.0 (35-47) % MCV 86.2 (78-100) fL MCH 30.2 (26-32) pg MCHC 35.0 (32-36) g/dL RDW 11.9 (11.5-14.0) % Plt Count 243 (150-450) x10^3/uL MPV 9.9 (7.5-11.0) fL Gran % 68.3 H (36.0-66.0) % Immature Gran % (Auto) 0.3 (0.00-0.4) % Nucleat RBC Rel Count 0.0 (0.00-0.1) % Eos # (Auto) 0.14 (0-0.5) x10^3/uL Immature Gran # (Auto) 0.02 (0.00-0.03) x10^3u/L Absolute Lymphs (auto) 1.47 (1.0-4.6) x10^3/uL Absolute Monos (auto) 0.80 (0.0-1.3) x10^3/uL Absolute Nucleated RBC 0.00 (0.00-0.01) x10^3u/L Lymphocytes % 18.9 L (24.0-44.0) % Monocytes % 10.3 (0.0-12.0) % Eosinophils % 1.8 (0.00-5.0) % Basophils % 0.4 (0.0-0.4) % Absolute Granulocytes 5.33 (1.4-6.9) x10^3/uL Basophils # 0.03 (0-0.4) x10^3/uL PT (9.4-12.5) SECONDS INR (0.8-3.0) APTT (25.1-36.5) SECONDS Sodium (137-145) mmol/L Potassium (3.5-5.1) mmol/L Chloride (98-107) mmol/L Carbon Dioxide (22-30) mmol/L Anion Gap (5-15) MEQ/L BUN (7-17) mg/dL Creatinine (0.52-1.04) mg/dL Estimated GFR ML/MIN Glucose (74-106) mg/dL Calcium (8.4-10.2) mg/dL Magnesium (1.6-2.3) mg/dL Total Bilirubin (0.2-1.3) mg/dL AST (14-36) U/L ALT (0-35) U/L Alkaline Phosphatase (38-126) U/L Troponin I (0.000-0.034) ng/mL NT-Pro-B Natriuret Pep (<300) pg/mL Serum Total Protein (6.3-8.2) g/dL Albumin (3.5-5.0) g/dL - Progress Progress Note: 01/28/23 23:35 Nursing note and vital signs reviewed No food or housing insecurities noted All labs reviewed and shared w pt Additional history later per son CXR/CT chest reviewed and shared w pt/son Pt has no evidence of pneumonia/IN/sepsis during stay Pt refused Fluvid 500ml NS bolus 01/28/23 23:36 Counseled pt/family regarding: lab results, diagnosis, need for follow-up, rad results Medical Desision Making - Independent Historian Additional History obtained from: Child - Diagnostic Testing Radiological Interpretation: Interpreted by me, Reviewed by me, Discussed w/ radiologist - Risk of complications The pt has a mod risk of morbidity or mortality based on: Need for prescription drug management - Departure Departure Disposition: Home Clinical Impression: Cough, Hyponatremia Condition: Stable Critical Care Time: No Referrals: AMY ELDRIDGE [Primary Care Provider] - Follow up/PCP as directed Instructions: Cough, Adult (DC) Additional Instructions: Follow up with your family MD in 1-2 days Fluids Start Doxycycline twice a day for 1 week for cough Return to ER as needed Prescriptions: Doxycycline Monohydrate 100 mg PO BID 7 Days #14 cap
[2023-01-28 19:58] LABS: Absolute Neutrophil Ct (ANC) 5.33 x10^3/uL (1.4-6.9); BASOPHIL % 0.4 % (0.0-0.4); Basophil (Absolute #) 0.03 x10^3/uL (0-0.4); Eosinophil % 1.8 % (0.00-5.0); Eosinophil (Absolute #) 0.14 x10^3/uL (0-0.5); Hemoglobin 14.7 g/dL (12.0-16.0); IMMATURE GRAN # 0.02 x10^3u/L (0.00-0.03); IMMATURE GRAN % 0.3 % (0.00-0.4); Lymphocyte (Absolute #) 1.47 x10^3/uL (1.0-4.6); Lymphocytes % 18.9 % (24.0-44.0); Mean Cell Volume 86.2 fL (78-100); Mean Corpuscular Hemoglobin 30.2 pg (26-32); Mean Platelet Volume 9.9 fL (7.5-11.0); Monocytes % 10.3 % (0.0-12.0); Neutrophil % 68.3 % (36.0-66.0); Platelet Count 243 x10^3/uL (150-450); Red Blood Count 4.87 x10^6/uL (4.1-5.4); Red Cell Distribution Width 11.9 % (11.5-14.0); White Blood Count 7.8 x10^3/uL (4.0-10.5)
[2023-01-28 20:13] LABS: INR 0.96 (0.8-3.0); PROTIME 10.5 SECONDS (9.4-12.5); PTT 28.5 SECONDS (25.1-36.5)
[2023-01-28 20:20] LABS: ALBUMIN 4.3 g/dL (3.5-5.0); ALKALINE PHOSPHATASE 102 U/L (38-126); ANION GAP 13.4 MEQ/L (5-15); BLOOD UREA NITROGEN 13 mg/dL (7-17); CHLORIDE 93 mmol/L (98-107); Calcium 9.2 mg/dL (8.4-10.2); Carbon Dioxide 26 mmol/L (22-30); Creatinine 1 0.54 mg/dL (0.52-1.04); EST GLOMERULAR FILTRATION RATE > 60.0 ML/MIN; Glucose 123 mg/dL (74-106); MAGNESIUM 1.7 mg/dL (1.6-2.3); NT PRO BNPII 92.5 pg/mL (<300); Potassium 3.4 mmol/L (3.5-5.1); SGOT/AST 27 U/L (14-36); SGPT/ALT 19 U/L (0-35); SODIUM 128 mmol/L (137-145); Total Protein 7.4 g/dL (6.3-8.2)
[2023-01-28] MEDS ORDERED: Sodium Chloride 0.9% 500 ML 500 ML IV ONE ×2 (22:05→22:30)
[2023-01-28 23:40] VITALS: BP 150/84
[2023-01-29 00:30] VITALS: PULSE 81
[2023-01-29 01:41] VITALS: O2SAT 99
--- NOTE | 2023-01-29 08:54 | XRAY ---
Indication: Abnormal chest x-ray. Multiple contiguous axial images obtained through the chest without contrast. Comparison: None Lungs inflated with small inferior right upper lobe calcified granuloma and minimal inferior lingula subsegmental atelectasis/scarring. No suspicious pulmonary mass/nodule, infiltrate, or effusion. Heart not enlarged with scattered coronary calcifications. Mildly arteriosclerotic aorta without aneurysm. Gastroesophageal junction demonstrates postsurgical changes with moderate-sized hiatal hernia. Bony thorax intact with osteopenia, mild/moderate multilevel thoracolumbar degenerative spondylosis, and moderate levorotoscoliosis centered at thoracolumbar junction. Limited upper abdomen demonstrates multiple hepatic cysts, largest right lobe measuring at least 7.5 cm. Smaller 5 cm hepatic cyst near the dome of the diaphragm with minimal eccentric calcification. Impression: 1. Chronic findings including arteriosclerotic disease, hiatal hernia, chronic bony findings, hepatic cysts, and old granulomatous disease. 2. Remaining CT chest without contrast exam is negative.
--- NOTE | 2023-01-29 08:57 | XRAY ---
Indication: Dyspnea. Comparison: December 04, 2021 Portable apical lordotic chest remains clear again with incidental inferior right upper lobe calcific granuloma. Heart not enlarged again with small hiatal hernia. Bony thorax intact again with osteopenia, multilevel degenerative spondylosis, and scoliosis. Impression: Nonacute chest with chronic features.
== END 2023-01-29 00:10 | disposition home or self-care (01) ==
LOC: ED 19:15
DX: R05.9 Cough, unspecified (principal); E87.1 Hypo-osmolality and hyponatremia; R06.00 Dyspnea, unspecified; Z79.899 Other long term (current) drug therapy
CPT/HCPCS: 36000; 36415; 71045; 71250; 80053; 83735; 83880; 84484; 85025; 85610; 85730; 99284

== ENCOUNTER 2023-02-15 10:12 | Emergency (ER) | payer MEDICARE ==
[2023-02-15 10:30] VITALS: BP 134/88; PULSE 88; RESP 18; TEMP 97.8; O2SAT 98
--- NOTE | 2023-02-15 10:46 | ERPHSYRPT ---
- History of Present Illness Time Seen by Provider: 02/15/23 10:29 Source: patient Exam Limitations: no limitations Patient Subjective Stated Complaint: Cat bite Triage Nursing Assessment: Patient ambulated back to ED and transferred self to bed. Patient A+O X 3. Patient's skin pink, warm and dry. Patient states she was bit yesterday evening by her 18 year old cat. Patient states she was brushing her fur and cat bit her on the top of left hand. Top of left hand noted to have small open area with redness and swelling noted to left hand. Patient denies pain or discomfort. Physician History: 82 years old female presented in the ER with chief complaint of cat bite last night. Patient reports it is her indoor cat for a long time, was brushing him when he got bit on the right hand dorsal aspect. Complaining of mild to moderate dull aching pain with swelling gradually worsening. No fever or chills reported. No difficulty movements of the wrist or fingers. Cat is not immunized and patient does not want to fill out cat bite paperwork. Patient is adamant that it was not provoked bite. Timing/Duration: yesterday Severity: mild, moderate Associated Symptoms: rash Allergies/Adverse Reactions: cephalexin monohydrate [From Keflex] Allergy (Mild, Verified 02/15/23 10:20) Nausea oxycodone HCl [From OxyContin] Allergy (Mild, Verified 02/15/23 10:20) Nausea and Vomiting DIZZY codeine Allergy (Verified 02/15/23 10:20) Nausea and Vomiting iodine Allergy (Verified 02/15/23 10:20) Home Medications: Albuterol Sulfate [Proair Hfa] 2 puffs IH Q2H/PRN PRN 01/29/16 [History] Cetirizine HCl 10 mg PO DAILY 01/29/16 [History] Fluticasone/Vilanterol [Breo Ellipta 100-25 Mcg INH] 1 each IH DAILY 01/29/16 [History] Lorazepam 0.5 mg [Ativan 0.5 MG] 1 mg PO TID 01/29/16 [History] Potassium Chloride 10 meq PO BID 01/29/16 [History] Hydrochlorothiazide 25 mg [hydroDIURIL 25 MG] 25 mg PO DAILY 05/31/16 [History] Omeprazole 20 MG [Prilosec 20 mg] 20 mg PO BID 07/23/16 [History] Linaclotide [Linzess] 290 mcg PO DAILY 06/14/19 [History] PANTOPRAZOLE 40 mg Tablet [Protonix 40MG Tablet] 40 mg PO BID 01/28/23 [History] Trazodone HCl 50 mg [Desyrel 50 mg] 100 mg PO HS 01/28/23 [History] Bumetanide 1 tab PO DAILY 02/15/23 [History] Hx Tetanus, Diphtheria Vaccination/Date Given: No Hx Influenza Vaccination/Date Given: No Hx Pneumococcal Vaccination/Date Given: Yes Immunizations Up to Date: Yes Travel Risk - International Travel Have you traveled outside of the country in past 3 weeks: No - Coronavirus Screening Are you exhibiting any of the following symptoms?: No Close contact with a COVID-19 positive Pt in past 14-21 Days: No - Vaccine Status Have you recieved a Covid-19 vaccination: Yes Manager Of Engineering: Unknown - Vaccination Dates Dates if Unknown: 2020 - Review of Systems Constitutional: No Symptoms Ears, Nose, & Throat: No Symptoms Respiratory: No Symptoms Cardiac: No Symptoms Musculoskeletal: Injury Skin: Skin Lesions Neurological: No Symptoms Hematologic/Lymphatic: No Symptoms - Past Medical History Pertinent Past Medical History: Yes Neurological History: No Pertinent History ENT History: No Pertinent History Cardiac History: No Pertinent History Respiratory History: Asthma, COPD Endocrine Medical History: No Pertinent History Musculoskeletal History: Rheumatoid Arthritis, Other GI Medical History: GERD, Hernia, Other History: No Pertinent History Psycho-Social History: Anxiety Female Reproductive Disorders: No Pertinent History Other Medical History: Hiatal Hernia, History of backpain, sciatica pain. lung stem cell treatment 2017 - Past Surgical History Past Surgical History: Yes Neuro Surgical History: No Pertinent History Cardiac: No Pertinent History Respiratory: No Pertinent History Gastrointestinal: No Pertinent History Genitourinary: No Pertinent History Musculoskeletal: Orthopedic Surgery Female Surgical History: Hysterectomy Other Surgical History: trigger finger, orif of left knee cap, HIATAL HERNIA, in [facility] in October for COPD,bronchitis , pneumonia. Thyroidectomy (left olobe) - Social History Smoking Status: Never smoker How long have you smoked: 1 Exposure to second hand smoke: No Alcohol Use: None Drug Use: none Patient Lives Alone: No Significant Family History: no pertinent family hx - Nursing Vital Signs Nursing Vital Signs: Initial Vital Signs Temperature 97.8 F 02/15/23 10:22 Pulse Rate 88 02/15/23 10:22 Respiratory Rate 18 02/15/23 10:22 Blood Pressure 134/88 02/15/23 10:22 O2 Sat by Pulse Oximetry 98 02/15/23 10:22 Pain Scale Pain Intensity 0 - Physical Exam General Appearance: no apparent distress, alert Eye Exam: eyes nml inspection Ears, Nose, Throat Exam: normal ENT inspection, pharynx normal Neck Exam: normal inspection, full range of motion Respiratory Exam: normal breath sounds, lungs clear Cardiovascular Exam: regular rate/rhythm, normal heart sounds Extremity Exam: normal range of motion, inflammation, swelling, tenderness (Right hand dorsal aspect 1 cm with dried blood. Mild induration/swelling around. Mild tenderness. Intact distal neurovascular) Neurologic Exam: alert, oriented x 3, cooperative Skin Exam: normal color SpO2 Interpretation: normal SpO2: 98 O2 Delivery: Room Air Ordered Tests: Medication Summary Discontinued Medications Generic Name Dose Route Start Last Admin Trade Name Freq PRN Reason Stop Dose Admin Diphtheria/Tetanus/Acell Pertussis 0.5 ml 02/15/23 10:52 Tdap --Diph,Pertuss(Acell),Tet Vac/Pf 0.5 Ml Vial IM 02/15/23 10:53 .ONCE ONE - Progress Progress: unchanged Progress Note: 02/15/23 10:57 82 years old female presented in the ER with chief complaint of cat bite last night. Patient reports it is her indoor cat for a long time, was brushing him when he got bit on the right hand dorsal aspect. Complaining of mild to moderate dull aching pain with swelling gradually worsening. No fever or chills reported. No difficulty movements of the wrist or fingers. Cat is not immunized and patient does not want to fill out cat bite paperwork. Patient is adamant that it was not provoked bite. Patient tetanus is updated. Patient does not want to report this to animal control and she understands the risk involved. She would keep the cat in the house and will observe and if has any symptoms of being readmitted she will contact animal control on her own. She is started on Augmentin. Recommended Tylenol, elevation and outpatient follow-up. Discussed signs symptoms of worsening needing return to ER which she seems understanding. Stable for discharge. - Departure Departure Disposition: Home Clinical Impression: Cat bite of hand Condition: Stable Critical Care Time: No Referrals: NANCY ELDRIDGE [Primary Care Provider] - Follow Up with PCP/3 days Instructions: Animal Bites (DC) Additional Instructions: Take Tylenol as needed. Intermittent ice application. Keep it elevated. Follow-up with primary care for reevaluation. Return to ER for increasing pain swelling redness/fever chills/difficulty movements of the hand wrist or fingers. Prescriptions: Amox Tr/Potass Clav. 875 mg [Augmentin 875-125 Tablet] 875 mg PO BID #14 tablet
[2023-02-15] MEDS ORDERED: Adacel Vial IM ONE ×2 (10:52→10:53)
== END 2023-02-15 11:01 | disposition home or self-care (01) ==
LOC: ED 10:12
DX: S61.451A Open bite of right hand, initial encounter (principal); W55.01XA Bitten by cat, initial encounter; Y93.K3 Activity, grooming and shearing an animal; Z79.899 Other long term (current) drug therapy; Z23 Encounter for immunization
CPT/HCPCS: 90471; 90715; 99283

== ENCOUNTER 2023-07-28 00:03 | Observation (INO) | payer MEDICARE ==
[2023-07-28 00:29] LABS: Absolute Neutrophil Ct (ANC) 3.62 x10^3/uL (1.4-6.9); BASOPHIL % 0.5 % (0.0-0.4); Basophil (Absolute #) 0.03 x10^3/uL (0-0.4); Eosinophil % 2.7 % (0.00-5.0); Eosinophil (Absolute #) 0.17 x10^3/uL (0-0.5); Hematocrit 43.3 % (35-47); Hemoglobin 15.5 g/dL (12.0-16.0); IMMATURE GRAN # 0.01 x10^3u/L (0.00-0.03); IMMATURE GRAN % 0.2 % (0.00-0.4); Lymphocyte (Absolute #) 1.91 x10^3/uL (1.0-4.6); Lymphocytes % 29.8 % (24.0-44.0); Mean Cell Volume 84.4 fL (78-100); Mean Corpuscular Hemoglobin 30.2 pg (26-32); Mean Corpuscular Hgb Concent. 35.8 g/dL (32-36); Mean Platelet Volume 10.1 fL (7.5-11.0); Monocyte (Absolute #) 0.66 x10^3/uL (0.0-1.3); Monocytes % 10.3 % (0.0-12.0); Neutrophil % 56.5 % (36.0-66.0); Platelet Count 252 x10^3/uL (150-450); Red Blood Count 5.13 x10^6/uL (4.1-5.4); Red Cell Distribution Width 11.9 % (11.5-14.0); White Blood Count 6.4 x10^3/uL (4.0-10.5)
--- NOTE | 2023-07-28 00:38 | ERPHSYRPT ---
- History of Present Illness Time Seen by Provider: 07/28/23 00:14 Source: patient, EMS Exam Limitations: no limitations Patient Subjective Stated Complaint: high blood pressure, headache, blurred vision, lightheaded Triage Nursing Assessment: pt brought in by ambulance, pt alert and oriented x4 but very anxious and scared. Pt c/o high blood pressure in the 190's tonight but has been running high since Saturday. Pt c/o headache, blurred vision and lightheadedness and c/o being scared that she's going to have a heart attack. Lungs clear, heart tones reg, abd soft with active bs x4 quad, nontender. Pt does have a hiatal hernia that pushes up on her heart and lungs but she states no doctor with operate on her at her age. Physician History: 82 years old female with history of hypertension, hyperlipidemia, GERD presented in the ER with chief complaint of elevated blood pressure with headache and blurry vision/lightheadedness but no diplopia. Patient reports her blood pressure usually is around 120s but tonight it was in 190s. She denies any numbness tingling or focal weakness. No chest pain palpitations or shortness of breath reported. Patient is very anxious. Her blood pressure is 199/102 on presentation in the ER and EKG is sinus rhythm with no acute ST elevations. Patient reports 4/10 intensity headache all over. Allergies/Adverse Reactions: cephalexin monohydrate [From Keflex] Allergy (Mild, Verified 07/28/23 00:41) Nausea oxycodone HCl [From OxyContin] Allergy (Mild, Verified 07/28/23 00:41) Nausea and Vomiting DIZZY codeine Allergy (Verified 07/28/23 00:41) Nausea and Vomiting iodine Allergy (Verified 07/28/23 00:41) Home Medications: Albuterol Sulfate [Proair Hfa] 2 puffs IH Q2H/PRN PRN 01/29/16 [History] Fluticasone/Vilanterol [Breo Ellipta 100-25 Mcg Inhalr] 1 each IH DAILY 01/29/16 [History] Potassium Chloride 10 meq PO BID 01/29/16 [History] Hydrochlorothiazide 25 mg [hydroDIURIL 25 MG] 25 mg PO DAILY 05/31/16 [History] Omeprazole 20 MG [Prilosec 20 mg] 20 mg PO BID 07/23/16 [History] Linaclotide [Linzess] 290 mcg PO DAILY 06/14/19 [History] Meclizine HCl 25 mg [Antivert 25 mg] 1 tab PO TID PRN PRN 07/28/23 [History] Hx Tetanus, Diphtheria Vaccination/Date Given: Yes Hx Influenza Vaccination/Date Given: No Hx Pneumococcal Vaccination/Date Given: Yes Immunizations Up to Date: No Travel Risk - International Travel Have you traveled outside of the country in past 3 weeks: No - Coronavirus Screening Are you exhibiting any of the following symptoms?: No Close contact with a COVID-19 positive Pt in past 14-21 Days: No - Vaccine Status Have you recieved a Covid-19 vaccination: Yes 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 - Review of Systems Constitutional: No Symptoms Eyes: Vision Changes Ears, Nose, & Throat: No Symptoms Respiratory: No Symptoms Cardiac: No Symptoms Abdominal/Gastrointestinal: No Symptoms Genitourinary Symptoms: No Symptoms Musculoskeletal: Arthralgias Skin: No Symptoms Neurological: Headache Psychological: Anxiety Endocrine: No Symptoms Hematologic/Lymphatic: No Symptoms - Past Medical History Pertinent Past Medical History: Yes Neurological History: No Pertinent History ENT History: No Pertinent History Cardiac History: Congestive Heart Failure Respiratory History: Asthma, CHF, COPD Endocrine Medical History: No Pertinent History Musculoskeletal History: Rheumatoid Arthritis, Other GI Medical History: GERD, Hernia, Other History: No Pertinent History Psycho-Social History: Anxiety, Depression Female Reproductive Disorders: No Pertinent History Other Medical History: Hiatal Hernia, History of backpain, sciatica pain. lung stem cell treatment 2017 - Past Surgical History Past Surgical History: Yes Neuro Surgical History: No Pertinent History Cardiac: No Pertinent History Respiratory: No Pertinent History Gastrointestinal: No Pertinent History Genitourinary: No Pertinent History Musculoskeletal: Orthopedic Surgery Female Surgical History: Hysterectomy Other Surgical History: trigger finger, orif of left knee cap, HIATAL HERNIA, in [facility] in October for COPD,bronchitis , pneumonia. Thyroidectomy (left lobe) - Social History Smoking Status: Former smoker How long have you smoked: 1 Exposure to second hand smoke: No Alcohol Use: None Drug Use: none Patient Lives Alone: No Significant Family History: no pertinent family hx - Nursing Vital Signs Nursing Vital Signs: Initial Vital Signs Temperature 97.8 F 07/28/23 00:08 Pulse Rate 76 07/28/23 00:08 Respiratory Rate 18 07/28/23 00:08 Blood Pressure 199/102 07/28/23 00:08 O2 Sat by Pulse Oximetry 98 07/28/23 00:08 Pain Scale Pain Intensity 0 - Physical Exam General Appearance: no apparent distress, alert Eye Exam: PERRL/EOMI Ears, Nose, Throat Exam: normal ENT inspection, TMs normal, pharynx normal, moist mucous membranes Neck Exam: normal inspection, supple, full range of motion Respiratory Exam: normal breath sounds, lungs clear Cardiovascular Exam: regular rate/rhythm, normal heart sounds Gastrointestinal/Abdomen Exam: soft, normal bowel sounds, No tenderness Extremity Exam: normal inspection, normal range of motion Neurologic Exam: alert, oriented x 3, cooperative, wire weaver II-XII nml as tested, nml cerebellar function, sensation nml, No normal mood/affect, No motor deficits Skin Exam: normal color SpO2 Interpretation: normal SpO2: 98 O2 Delivery: Room Air - Course EKG Interpreted by Me: RATE (65), Sinus Rhythm, NORMAL AXIS, Non-specific ST Changes, Other (PVCs) Ordered Tests: Active Orders 24 hr Category Date Time Status Appliance Line Assembler STAT Care 07/28/23 00:15 Active EKG-ER Only STAT Care 07/28/23 00:14 Active IV Insertion STAT Care 07/28/23 00:14 Active CHEST 1 VIEW (PORTABLE) Stat Exams 07/28/23 00:14 Taken HEAD WITHOUT CONTRAST [CT] Stat Exams 07/28/23 00:15 Completed CBC W DIFF Stat Lab 07/28/23 00:25 Completed CMP Stat Lab 07/28/23 00:25 Completed NT PRO BNPII Stat Lab 07/28/23 00:25 Completed TROPONIN Q4H Lab 07/28/23 00:25 Completed TROPONIN Q4H Lab 07/28/23 04:15 Ordered TROPONIN Q4H Lab 07/28/23 08:15 Ordered Medication Summary Discontinued Medications Generic Name Dose Route Start Last Admin Trade Name Freq PRN Reason Stop Dose Admin Acetaminophen 650 mg 07/28/23 00:55 07/28/23 00:59 Acetaminophen 325 Mg Tablet PO 07/28/23 00:56 650 mg STAT STA Administration Acetaminophen Confirm 07/28/23 00:57 Acetaminophen 325 Mg Tablet Administered 07/28/23 00:58 Dose 650 mg .ROUTE .STK-MED ONE Hydralazine HCl 10 mg 07/28/23 01:17 07/28/23 01:20 Hydralazine Hcl 20 Mg/Ml Vial IV 07/28/23 01:18 10 mg STAT ONE Administration Hydralazine HCl Confirm 07/28/23 01:20 Hydralazine Hcl 20 Mg/Ml Vial Administered 07/28/23 01:21 Dose 20 mg .ROUTE .STK-MED ONE Lorazepam 1 mg 07/28/23 00:46 07/28/23 00:55 Lorazepam 1 Mg Tablet PO 07/28/23 00:47 1 mg STAT ONE Administration Lorazepam Confirm 07/28/23 00:52 Lorazepam 1 Mg Tablet Administered 07/28/23 00:53 Dose 1 mg .ROUTE .STK-MED ONE Lab/Rad Data: Laboratory Result Diagrams 07/28/23 00:25 07/28/23 00:25 Laboratory Results 07/28/23 07/28/23 07/28/23 Range/Units 00:25 00:25 00:25 WBC (4.0-10.5) x10^3/uL RBC (4.1-5.4) x10^6/uL Hgb (12.0-16.0) g/dL Hct (35-47) % MCV (78-100) fL MCH (26-32) pg MCHC (32-36) g/dL RDW (11.5-14.0) % Plt Count (150-450) x10^3/uL MPV (7.5-11.0) fL Gran % (36.0-66.0) % Immature Gran % (Auto) (0.00-0.4) % Nucleat RBC Rel Count (0.00-0.1) % Eos # (Auto) (0-0.5) x10^3/uL Immature Gran # (Auto) (0.00-0.03) x10^3u/L Absolute Lymphs (auto) (1.0-4.6) x10^3/uL Absolute Monos (auto) (0.0-1.3) x10^3/uL Absolute Nucleated RBC (0.00-0.01) x10^3u/L Lymphocytes % (24.0-44.0) % Monocytes % (0.0-12.0) % Eosinophils % (0.00-5.0) % Basophils % (0.0-0.4) % Absolute Granulocytes (1.4-6.9) x10^3/uL Basophils # (0-0.4) x10^3/uL Sodium 127 L (137-145) mmol/L Potassium 3.2 L (3.5-5.1) mmol/L Chloride 94 L (98-107) mmol/L Carbon Dioxide 24 (22-30) mmol/L Anion Gap 11.9 (5-15) MEQ/L BUN 9 (7-17) mg/dL Creatinine 0.49 L (0.52-1.04) mg/dL Estimated GFR 95.2 ML/MIN Glucose 116 H (74-106) mg/dL Calcium 9.5 (8.4-10.2) mg/dL Total Bilirubin 0.90 (0.2-1.3) mg/dL AST 31 (14-36) U/L ALT 16 (0-35) U/L Alkaline Phosphatase 105 (38-126) U/L Troponin I < 0.012 (0.000-0.034) ng/mL NT-Pro-B Natriuret Pep 63.6 (<300) pg/mL Serum Total Protein 7.5 (6.3-8.2) g/dL Albumin 4.6 (3.5-5.0) g/dL 07/28/23 Range/Units 00:25 WBC 6.4 (4.0-10.5) x10^3/uL RBC 5.13 (4.1-5.4) x10^6/uL Hgb 15.5 (12.0-16.0) g/dL Hct 43.3 (35-47) % MCV 84.4 (78-100) fL MCH 30.2 (26-32) pg MCHC 35.8 (32-36) g/dL RDW 11.9 (11.5-14.0) % Plt Count 252 (150-450) x10^3/uL MPV 10.1 (7.5-11.0) fL Gran % 56.5 (36.0-66.0) % Immature Gran % (Auto) 0.2 (0.00-0.4) % Nucleat RBC Rel Count 0.0 (0.00-0.1) % Eos # (Auto) 0.17 (0-0.5) x10^3/uL Immature Gran # (Auto) 0.01 (0.00-0.03) x10^3u/L Absolute Lymphs (auto) 1.91 (1.0-4.6) x10^3/uL Absolute Monos (auto) 0.66 (0.0-1.3) x10^3/uL Absolute Nucleated RBC 0.00 (0.00-0.01) x10^3u/L Lymphocytes % 29.8 (24.0-44.0) % Monocytes % 10.3 (0.0-12.0) % Eosinophils % 2.7 (0.00-5.0) % Basophils % 0.5 (0.0-0.4) % Absolute Granulocytes 3.62 (1.4-6.9) x10^3/uL Basophils # 0.03 (0-0.4) x10^3/uL Sodium (137-145) mmol/L Potassium (3.5-5.1) mmol/L Chloride (98-107) mmol/L Carbon Dioxide (22-30) mmol/L Anion Gap (5-15) MEQ/L BUN (7-17) mg/dL Creatinine (0.52-1.04) mg/dL Estimated GFR ML/MIN Glucose (74-106) mg/dL Calcium (8.4-10.2) mg/dL Total Bilirubin (0.2-1.3) mg/dL AST (14-36) U/L ALT (0-35) U/L Alkaline Phosphatase (38-126) U/L Troponin I (0.000-0.034) ng/mL NT-Pro-B Natriuret Pep (<300) pg/mL Serum Total Protein (6.3-8.2) g/dL Albumin (3.5-5.0) g/dL - Progress Progress: improved Progress Note: 07/28/23 01:58 82 years old is evaluated for elevated blood pressure with headache. Patient h as a nonfocal neuroexam. She is very anxious. She is given Ativan and Tylenol for symptomatic relief. Her blood pressure was still in 190s, given hydralazine and it is in 170s on recheck. Chest x-ray is negative for acute cardiopulmonary findings reviewed by me, official report is pending. Obtained CT head which is negative for any acute intracranial findings. EKG showed sinus rhythm with no acute ST elevation and negative troponins. Chemistry showed hyperal natremia with a sodium of 127, it was 128 few months ago. I believe patient needs medication adjustments. Discussed with Dr. Donald, hospitalist reviewed history, workup and patient is being admitted for observation. Discussed with Dr.: Other (Dr. Donald hospitalist) Will see patient in: hospital (observation) Counseled pt/family regarding: lab results, diagnosis, rad results Medical Desision Making - Independent Historian Additional History obtained from: Child, Finished Goods Planner/EMT - Discussion of managment Care discussed with:: hospitalist Reviewed:: Test results Agreed on:: Treatment plan Will see patient: in hospital - Diagnostic Testing Diagnostic test were ordered, analyzed, and reviewed by me: Yes Radiological Interpretation: Interpreted by me, Reviewed by me, Teleradiologist Report - Risk of complications The pt has a high risk of morbidity or mortality based on: Decision regarding hospitilization or escalation of hosp level of care - Departure Departure Disposition: Observation Clinical Impression: Uncontrolled hypertension, Anxiety, Hyponatremia Condition: Stable Critical Care Time: No Referrals: NANCY ELDRIDGE [Primary Care Provider] - Follow up/PCP as directed
[2023-07-28 00:39] LABS: ALBUMIN 4.6 g/dL (3.5-5.0); ANION GAP 11.9 MEQ/L (5-15); BILIRUBIN,TOTAL 0.9 mg/dL (0.2-1.3); Calcium 9.5 mg/dL (8.4-10.2); Creatinine 1 0.49 mg/dL (0.52-1.04); EST GLOMERULAR FILTRATION RATE 95.2 ML/MIN; Potassium 3.2 mmol/L (3.5-5.1); Total Protein 7.5 g/dL (6.3-8.2)
[2023-07-28] MEDS ORDERED: Ativan 1 MG PO ONE (00:46)
[2023-07-28] MEDS ORDERED: Ativan 1 MG ONE (00:52)
[2023-07-28] MEDS ORDERED: TYLENOL 325 MG PO STA (00:55)
[2023-07-28] MEDS ORDERED: TYLENOL 325 MG ONE ×2 (00:57→09:37)
[2023-07-28] MEDS ORDERED: APRESOLINE 20 MG/ML INJ IV ONE (01:17)
[2023-07-28] MEDS ORDERED: APRESOLINE 20 MG/ML INJ ONE (01:20)
--- NOTE | 2023-07-28 01:25 | XRAY ---
CLINICAL HISTORY:headache , HTN COMPARISON:None. TECHNIQUE:An axial non-contrast CT scan of the brain was performed from the skull base to the high parietal region. Coronal and sagittal reconstructive images were also performed and submitted for interpretation. FINDINGS: Diffuse bilateral cerebral periventricular white hypodensities with small hypodense foci seen at the left internal capsule and bilateral subcortical white matter suggestive of microvascular ischemic changes. Guzman-white matter differentiation is maintained. Normal CT appearance of the posterior fossa structures namely the cerebellar hemispheres, brainstem and cerebellar peduncles. No intracerebral or extra axial hematoma. No midline shifts or deformity. Normal size and configuration of the cerebral ventricles. The osseous structures in the skull base are unremarkable. No definite calvarium fractures. Scanned paranasal sinuses are clear. IMPRESSION: 1. No evidence of established acute territorial infarction, intracranial or extracranial hemorrhage. 2. Microvascular ischemic changes with bilateral cerebral white matter and left internal capsule ischemic foci. Electronically Signed by: Antonia Cade MD. (07/28/2023 01:21:33 EST)
--- NOTE | 2023-07-28 02:17 | PCM.HP ---
History of Present Illness - Chief Complaint Chief Complaint: hypertension Date: 07/28/23 History of Present Illness: Ms. Talbot is a 82 year old female with a past medical history significant for hypertension, hyperlipidemia and hypokalemia who presents to the ER with m arkedly elevated blood pressure above her baseline of about ~ 120 systolic. She was found to be in the 190s and has been fairly anxious. No chest pain or shortness of breath. She has been taking her HCTZ without any issues, and no recent changes in diet. Her initial labs were notable for a sodium of 128, which is similar to the past. She has not used any NSAIDs or had exposure to contrast. - Review of Systems Eyes: No Eye Pain, No Vision Changes Ears, Nose, & Throat: No Ear Discharge Respiratory: No Cough, No Short Of Breath Cardiac: No Chest Pain, No Palpitations Abdominal/Gastrointestinal: No Abdominal Pain, No Nausea, No Vomiting, No Diarrhea Genitourinary Symptoms: No Dysuria, No Frequency Musculoskeletal: No Arthralgias Skin: No Cellulitis Neurological: Tremors, No Parasthesia Psychological: No Alcohol Abuse, No Drug Abuse Endocrine: No Polyuria, No Polydipsia Hematologic/Lymphatic: No Symptoms Immunological/Allergic: No Symptoms Medications & Allergies Home Medications: Home Medication List Albuterol Sulfate [Proair Hfa] 2 puffs IH Q2H/PRN PRN 01/29/16 [History Confirmed 07/28/23] Fluticasone/Vilanterol [Breo Ellipta 100-25 Mcg Inhalr] 1 each IH DAILY 01/29/16 [History Confirmed 07/28/23] Potassium Chloride 10 meq PO BID 01/29/16 [History Confirmed 07/28/23] Hydrochlorothiazide 25 mg [hydroDIURIL 25 MG] 25 mg PO DAILY 05/31/16 [History Confirmed 07/28/23] Omeprazole 20 MG [Prilosec 20 mg] 20 mg PO BID 07/23/16 [History Confirmed 07/28/23] Linaclotide [Linzess] 290 mcg PO DAILY 06/14/19 [History Confirmed 07/28/23] Meclizine HCl 25 mg [Antivert 25 mg] 1 tab PO TID PRN PRN 07/28/23 [History Confirmed 07/28/23] Allergies/Adverse Reactions: Allergies Allergy/AdvReac Type Severity Reaction Status Date / Time cephalexin monohydrate Allergy Mild Nausea Verified 07/28/23 00:41 [From Keflex] oxycodone HCl Allergy Mild Nausea and Verified 07/28/23 00:41 [From OxyContin] Vomiting codeine Allergy Nausea and Verified 07/28/23 00:41 Vomiting iodine Allergy Verified 07/28/23 00:41 - Past Medical History Past Medical History: Yes Neurological History: No Pertinent History ENT History: No Pertinent History Cardiac History: Congestive Heart Failure Respiratory History: Asthma, CHF, COPD Endocrine Medical History: No Pertinent History Musculoskelatal History: Rheumatoid Arthritis, Other GI Medical History: GERD, Hernia, Other History: No Pertinent History Pyscho-Social History: Anxiety, Depression Reproductive Disorders: No Pertinent History Comment: Hiatal Hernia, History of backpain, sciatica pain. lung stem cell treatment 2017 - Past Surgical History Past Surgical History: Yes Neuro Surgical History: No Pertinent History Cardiac History: No Pertinent History Respiratory Surgery: No Pertinent History GI Surgical History: No Pertinent History Genitourinary Surgical Hx: No Pertinent History Musculskeletal Surgical Hx: Orthopedic Surgery Female Surgical History: Hysterectomy Other Surgical History: trigger finger, orif of left knee cap, HIATAL HERNIA, in [facility] in October for COPD,bronchitis , pneumonia. Thyroidectomy (left lobe) - Social History Smoking Status: Former smoker How long have you smoked: 1 Exposure to second hand smoke: No Alcohol: None Drug Use: none Significant Family History: no pertinent family hx - Physical Exam Vital Signs: Vital Signs - 24 hr Temp Pulse Resp BP BP Pulse Ox 07/28/23 02:04 98 07/28/23 02:00 81 18 160/74 97 07/28/23 01:50 82 15 98 07/28/23 01:44 80 17 164/70 98 07/28/23 01:40 80 11 L 98 07/28/23 01:30 74 16 97 07/28/23 01:20 64 18 98 07/28/23 01:10 67 20 97 07/28/23 01:02 68 19 190/80 98 07/28/23 00:44 68 11 L 199/130 98 07/28/23 00:43 71 24 97 07/28/23 00:40 74 11 L 91 L 07/28/23 00:08 97.8 F 76 18 199/102 98 General Appearance: anxiety Neurologic Exam: No slurred speech, No aphasia Neck Exam: supple Respiratory Exam: No rhonchi, No wheezing Cardiovascular Exam: regular rate/rhythm Gastrointestinal/Abdomen Exam: soft Extremity Exam: No pedal edema, No swelling Skin Exam: warm Results - Labs Lab/Micro Results: Lab Results-Last 24 Hours 07/28/23 07/28/23 07/28/23 Range/Units 00:25 00:25 00:25 WBC 6.4 (4.0-10.5) x10^3/uL RBC 5.13 (4.1-5.4) x10^6/uL Hgb 15.5 (12.0-16.0) g/dL Hct 43.3 (35-47) % MCV 84.4 (78-100) fL MCH 30.2 (26-32) pg MCHC 35.8 (32-36) g/dL RDW 11.9 (11.5-14.0) % Plt Count 252 (150-450) x10^3/uL MPV 10.1 (7.5-11.0) fL Gran % 56.5 (36.0-66.0) % Immature Gran % (Auto) 0.2 (0.00-0.4) % Nucleat RBC Rel Count 0.0 (0.00-0.1) % Eos # (Auto) 0.17 (0-0.5) x10^3/uL Immature Gran # (Auto) 0.01 (0.00-0.03) x10^3u/L Absolute Lymphs (auto) 1.91 (1.0-4.6) x10^3/uL Absolute Monos (auto) 0.66 (0.0-1.3) x10^3/uL Absolute Nucleated RBC 0.00 (0.00-0.01) x10^3u/L Lymphocytes % 29.8 (24.0-44.0) % Monocytes % 10.3 (0.0-12.0) % Eosinophils % 2.7 (0.00-5.0) % Basophils % 0.5 (0.0-0.4) % Absolute Granulocytes 3.62 (1.4-6.9) x10^3/uL Basophils # 0.03 (0-0.4) x10^3/uL Sodium 127 L (137-145) mmol/L Potassium 3.2 L (3.5-5.1) mmol/L Chloride 94 L (98-107) mmol/L Carbon Dioxide 24 (22-30) mmol/L Anion Gap 11.9 (5-15) MEQ/L BUN 9 (7-17) mg/dL Creatinine 0.49 L (0.52-1.04) mg/dL Estimated GFR 95.2 ML/MIN Glucose 116 H (74-106) mg/dL Calcium 9.5 (8.4-10.2) mg/dL Total Bilirubin 0.90 (0.2-1.3) mg/dL AST 31 (14-36) U/L ALT 16 (0-35) U/L Alkaline Phosphatase 105 (38-126) U/L Troponin I < 0.012 (0.000-0.034) ng/mL NT-Pro-B Natriuret Pep (<300) pg/mL Serum Total Protein 7.5 (6.3-8.2) g/dL Albumin 4.6 (3.5-5.0) g/dL 07/28/23 Range/Units 00:25 WBC (4.0-10.5) x10^3/uL RBC (4.1-5.4) x10^6/uL Hgb (12.0-16.0) g/dL Hct (35-47) % MCV (78-100) fL MCH (26-32) pg MCHC (32-36) g/dL RDW (11.5-14.0) % Plt Count (150-450) x10^3/uL MPV (7.5-11.0) fL Gran % (36.0-66.0) % Immature Gran % (Auto) (0.00-0.4) % Nucleat RBC Rel Count (0.00-0.1) % Eos # (Auto) (0-0.5) x10^3/uL Immature Gran # (Auto) (0.00-0.03) x10^3u/L Absolute Lymphs (auto) (1.0-4.6) x10^3/uL Absolute Monos (auto) (0.0-1.3) x10^3/uL Absolute Nucleated RBC (0.00-0.01) x10^3u/L Lymphocytes % (24.0-44.0) % Monocytes % (0.0-12.0) % Eosinophils % (0.00-5.0) % Basophils % (0.0-0.4) % Absolute Granulocytes (1.4-6.9) x10^3/uL Basophils # (0-0.4) x10^3/uL Sodium (137-145) mmol/L Potassium (3.5-5.1) mmol/L Chloride (98-107) mmol/L Carbon Dioxide (22-30) mmol/L Anion Gap (5-15) MEQ/L BUN (7-17) mg/dL Creatinine (0.52-1.04) mg/dL Estimated GFR ML/MIN Glucose (74-106) mg/dL Calcium (8.4-10.2) mg/dL Total Bilirubin (0.2-1.3) mg/dL AST (14-36) U/L ALT (0-35) U/L Alkaline Phosphatase (38-126) U/L Troponin I (0.000-0.034) ng/mL NT-Pro-B Natriuret Pep 63.6 (<300) pg/mL Serum Total Protein (6.3-8.2) g/dL Albumin (3.5-5.0) g/dL - Radiology Impressions Radiology Exams & Impressions: Radiology Procedures Category Date Time Status CHEST 1 VIEW (PORTABLE) Stat Exams 07/28/23 00:14 Taken HEAD WITHOUT CONTRAST [CT] Stat Exams 07/28/23 00:15 Completed Assessment/Plan (1) Hypertensive urgency Current Visit: Yes Status: Acute Assessment & Plan: Blood pressure markedly elevated likely exacerbated by anxiety 1. Continue HCTZ for now despite hyponatremia/hypokalemia 2. Will add low dose calcium channel janki 3. Defer renal artery doppler for now 4. Monitor blood pressure readings Code(s): I16.0 - HYPERTENSIVE URGENCY (2) Hyponatremia Current Visit: Yes Status: Acute Assessment & Plan: Likely from thiazide diuretic 1. Limit free water 2. Check urine lytes, urine osmo to rule out SIADH from lung disease 3. Continue HCTZ for now Code(s): E87.1 - HYPO-OSMOLALITY AND HYPONATREMIA (3) COPD (chronic obstructive pulmonary disease) Current Visit: No Status: Acute Assessment & Plan: On inhalers 1. Continue duonebs 2. Supplemental O2 prn 3. Monitor oxygen sats (4) Hypokalemia due to inadequate potassium intake Current Visit: No Status: Acute Assessment & Plan: Likely from thiazide diuretic 1. Replete K 2. Check Mg 3. Trend electrolytes Code(s): E87.6 - HYPOKALEMIA Telemedicine Encounter - Telemedicine Encounter Telemedicine Encounter: The entirety of this encounter was performed via Telemedicine"
[2023-07-28] MEDS ORDERED: VENTOLIN COMMON CANISTER IH PRN (03:55)
--- NOTE | 2023-07-28 05:24 | PCM.NOTE ---
Date and Time: 07/28/23520 Subjective Assessment: Ms. Talbot is a 82 year old female with a PMHX of HTN, HLD, CHF, COPDRA, anxiety, depression, and GERD who presented to ED 07/28/23 with markedly elevated blood pressure above her baseline of about ~ 120 systolic. She was found to be in the 190s and has been fairly anxious. No chest pain or shortness of breath. Her initial labs were notable for a sodium of 128, which is similar to the past. She has not used any NSAIDs or had exposure to contrast. Head CT with no evidence of acute acute territorial infarction, intracranial or extracranial hemorrhage.Patient admitted for hyponatremia/hypokalemia and hypertensive urgency, plan for hydration, and potassium repletion. Possible discharge tomorrow. 07/28/23: Met with patient bedside. Endorses much improved overnight although she still has a headache. BP has improved. Patient states she has been on HCTZ since 1972 and states it always makes her dizzy. Sodium and potassium are still low this morning. Will discontinue the HCTZ and start on Amlodipine 10mg daily. Continue to monitor electrolytes overnight, possible discharge in the morning. Advised patient to follow up with pcp op for follow up on BP med changes, meanwhile keep BP log at home. Denies fever,cough, sob, cp, abdominal pain, COOPER, dizziness, N/V/D. <STEPHANIE HURLEY - Last Filed: 07/28/23 12:13> Date and Time: 07/28/232031 <ELDER HERNANDES - Last Filed: 07/28/23 20:33> - Review of Systems Constitutional: No Symptoms Eyes: No Symptoms Ears, Nose, & Throat: No Symptoms Respiratory: No Symptoms Cardiac: No Symptoms Abdominal/Gastrointestinal: No Symptoms Genitourinary Symptoms: No Symptoms Musculoskeletal: No Symptoms Skin: No Symptoms Neurological: Headache Psychological: No Symptoms Endocrine: No Symptoms Hematologic/Lymphatic: No Symptoms Immunological/Allergic: No Symptoms <STEPHANIE HURLEY - Last Filed: 07/28/23 12:13> Objective Exam General Appearance: no apparent distress Neurologic Exam: alert, oriented x 3, cooperative Skin Exam: normal color Eye Exam: PERRL Ears, Nose, Throat Exam: normal ENT inspection Neck Exam: normal inspection Respiratory Exam: normal breath sounds, lungs clear Cardiovascular Exam: regular rate/rhythm, normal heart sounds Gastrointestinal/Abdomen Exam: soft, normal bowel sounds Extremity Exam: normal inspection Back Exam: normal inspection Pelvic Exam: deferred Rectal Exam: deferred <STEPHANIE HURLEY - Last Filed: 07/28/23 12:13> OBJECTIVE DATA Vital Signs: Vital Signs - 24 hr Temp Pulse Resp BP BP Pulse Ox 07/28/23 03:29 80 18 98 07/28/23 03:00 96 07/28/23 02:44 97.9 F 81 18 174/79 96 07/28/23 02:04 98 07/28/23 02:00 81 18 160/74 97 07/28/23 01:50 82 15 98 07/28/23 01:44 80 17 164/70 98 07/28/23 01:40 80 11 L 98 07/28/23 01:30 74 16 97 07/28/23 01:20 64 18 98 07/28/23 01:10 67 20 97 07/28/23 01:02 68 19 190/80 98 07/28/23 00:44 68 11 L 199/130 98 07/28/23 00:43 71 24 97 07/28/23 00:40 74 11 L 91 L 07/28/23 00:08 97.8 F 76 18 199/102 98 Pain Assessment - Last Documented Pain Intensity 8 Pain Scale Used 0-10 Pain Scale Intake and Output: Intake & Output 07/25/23 07/26/23 07/27/23 07/28/23 11:59 11:59 11:59 11:59 Intake Total 120 Balance 120 Weight 63.7 kg Lab Results: Lab Results-Last 24 Hours 07/28/23 07/28/23 07/28/23 Range/Units 00:25 00:25 00:25 WBC 6.4 (4.0-10.5) x10^3/uL RBC 5.13 (4.1-5.4) x10^6/uL Hgb 15.5 (12.0-16.0) g/dL Hct 43.3 (35-47) % MCV 84.4 (78-100) fL MCH 30.2 (26-32) pg MCHC 35.8 (32-36) g/dL RDW 11.9 (11.5-14.0) % Plt Count 252 (150-450) x10^3/uL MPV 10.1 (7.5-11.0) fL Gran % 56.5 (36.0-66.0) % Immature Gran % (Auto) 0.2 (0.00-0.4) % Nucleat RBC Rel Count 0.0 (0.00-0.1) % Eos # (Auto) 0.17 (0-0.5) x10^3/uL Immature Gran # (Auto) 0.01 (0.00-0.03) x10^3u/L Absolute Lymphs (auto) 1.91 (1.0-4.6) x10^3/uL Absolute Monos (auto) 0.66 (0.0-1.3) x10^3/uL Absolute Nucleated RBC 0.00 (0.00-0.01) x10^3u/L Lymphocytes % 29.8 (24.0-44.0) % Monocytes % 10.3 (0.0-12.0) % Eosinophils % 2.7 (0.00-5.0) % Basophils % 0.5 (0.0-0.4) % Absolute Granulocytes 3.62 (1.4-6.9) x10^3/uL Basophils # 0.03 (0-0.4) x10^3/uL Sodium 127 L (137-145) mmol/L Potassium 3.2 L (3.5-5.1) mmol/L Chloride 94 L (98-107) mmol/L Carbon Dioxide 24 (22-30) mmol/L Anion Gap 11.9 (5-15) MEQ/L BUN 9 (7-17) mg/dL Creatinine 0.49 L (0.52-1.04) mg/dL Estimated GFR 95.2 ML/MIN Glucose 116 H (74-106) mg/dL Calcium 9.5 (8.4-10.2) mg/dL Total Bilirubin 0.90 (0.2-1.3) mg/dL AST 31 (14-36) U/L ALT 16 (0-35) U/L Alkaline Phosphatase 105 (38-126) U/L Troponin I < 0.012 (0.000-0.034) ng/mL NT-Pro-B Natriuret Pep (<300) pg/mL Serum Total Protein 7.5 (6.3-8.2) g/dL Albumin 4.6 (3.5-5.0) g/dL 07/28/23 Range/Units 00:25 WBC (4.0-10.5) x10^3/uL RBC (4.1-5.4) x10^6/uL Hgb (12.0-16.0) g/dL Hct (35-47) % MCV (78-100) fL MCH (26-32) pg MCHC (32-36) g/dL RDW (11.5-14.0) % Plt Count (150-450) x10^3/uL MPV (7.5-11.0) fL Gran % (36.0-66.0) % Immature Gran % (Auto) (0.00-0.4) % Nucleat RBC Rel Count (0.00-0.1) % Eos # (Auto) (0-0.5) x10^3/uL Immature Gran # (Auto) (0.00-0.03) x10^3u/L Absolute Lymphs (auto) (1.0-4.6) x10^3/uL Absolute Monos (auto) (0.0-1.3) x10^3/uL Absolute Nucleated RBC (0.00-0.01) x10^3u/L Lymphocytes % (24.0-44.0) % Monocytes % (0.0-12.0) % Eosinophils % (0.00-5.0) % Basophils % (0.0-0.4) % Absolute Granulocytes (1.4-6.9) x10^3/uL Basophils # (0-0.4) x10^3/uL Sodium (137-145) mmol/L Potassium (3.5-5.1) mmol/L Chloride (98-107) mmol/L Carbon Dioxide (22-30) mmol/L Anion Gap (5-15) MEQ/L BUN (7-17) mg/dL Creatinine (0.52-1.04) mg/dL Estimated GFR ML/MIN Glucose (74-106) mg/dL Calcium (8.4-10.2) mg/dL Total Bilirubin (0.2-1.3) mg/dL AST (14-36) U/L ALT (0-35) U/L Alkaline Phosphatase (38-126) U/L Troponin I (0.000-0.034) ng/mL NT-Pro-B Natriuret Pep 63.6 (<300) pg/mL Serum Total Protein (6.3-8.2) g/dL Albumin (3.5-5.0) g/dL Radiology Exams: Radiology Procedures Category Date Time Status CHEST 1 VIEW (PORTABLE) Stat Exams 07/28/23 00:14 Taken HEAD WITHOUT CONTRAST [CT] Stat Exams 07/28/23 00:15 Completed <STEPHANIE HURLEY - Last Filed: 07/28/23 12:13> Vital Signs: Vital Signs - 24 hr Temp Pulse Resp BP BP Pulse Ox 07/28/23 19:55 97.8 F 63 18 115/59 97 07/28/23 19:47 95 07/28/23 16:00 97.8 F 65 17 166/76 99 07/28/23 12:00 97.5 F 74 17 167/77 94 L 07/28/23 09:52 67 16 97 07/28/23 08:00 97.5 F 78 17 172/72 91 L 07/28/23 03:29 80 18 98 07/28/23 03:00 96 07/28/23 02:44 97.9 F 81 18 174/79 96 07/28/23 02:04 98 07/28/23 02:00 81 18 160/74 97 07/28/23 01:50 82 15 98 07/28/23 01:44 80 17 164/70 98 07/28/23 01:40 80 11 L 98 07/28/23 01:30 74 16 97 07/28/23 01:20 64 18 98 07/28/23 01:10 67 20 97 07/28/23 01:02 68 19 190/80 98 07/28/23 00:44 68 11 L 199/130 98 07/28/23 00:43 71 24 97 07/28/23 00:40 74 11 L 91 L 07/28/23 00:08 97.8 F 76 18 199/102 98 Pain Assessment - Last Documented Pain Intensity 0 Pain Scale Used 0-10 Pain Scale Intake and Output: Intake & Output 07/26/23 07/27/23 07/28/23 07/29/23 11:59 11:59 11:59 11:59 Intake Total 240 Output Total 250 Balance -10 Weight 63.7 kg Lab Results: Lab Results-Last 24 Hours 07/28/23 07/28/23 07/28/23 Range/Units 00:25 00:25 00:25 WBC 6.4 (4.0-10.5) x10^3/uL RBC 5.13 (4.1-5.4) x10^6/uL Hgb 15.5 (12.0-16.0) g/dL Hct 43.3 (35-47) % MCV 84.4 (78-100) fL MCH 30.2 (26-32) pg MCHC 35.8 (32-36) g/dL RDW 11.9 (11.5-14.0) % Plt Count 252 (150-450) x10^3/uL MPV 10.1 (7.5-11.0) fL Gran % 56.5 (36.0-66.0) % Immature Gran % (Auto) 0.2 (0.00-0.4) % Nucleat RBC Rel Count 0.0 (0.00-0.1) % Eos # (Auto) 0.17 (0-0.5) x10^3/uL Immature Gran # (Auto) 0.01 (0.00-0.03) x10^3u/L Absolute Lymphs (auto) 1.91 (1.0-4.6) x10^3/uL Absolute Monos (auto) 0.66 (0.0-1.3) x10^3/uL Absolute Nucleated RBC 0.00 (0.00-0.01) x10^3u/L Lymphocytes % 29.8 (24.0-44.0) % Monocytes % 10.3 (0.0-12.0) % Eosinophils % 2.7 (0.00-5.0) % Basophils % 0.5 (0.0-0.4) % Absolute Granulocytes 3.62 (1.4-6.9) x10^3/uL Basophils # 0.03 (0-0.4) x10^3/uL Sodium 127 L (137-145) mmol/L Potassium 3.2 L (3.5-5.1) mmol/L Chloride 94 L (98-107) mmol/L Carbon Dioxide 24 (22-30) mmol/L Anion Gap 11.9 (5-15) MEQ/L BUN 9 (7-17) mg/dL Creatinine 0.49 L (0.52-1.04) mg/dL Estimated GFR 95.2 ML/MIN Glucose 116 H (74-106) mg/dL Calcium 9.5 (8.4-10.2) mg/dL Magnesium (1.6-2.3) mg/dL Total Bilirubin 0.90 (0.2-1.3) mg/dL AST 31 (14-36) U/L ALT 16 (0-35) U/L Alkaline Phosphatase 105 (38-126) U/L Troponin I < 0.012 (0.000-0.034) ng/mL NT-Pro-B Natriuret Pep (<300) pg/mL Serum Total Protein 7.5 (6.3-8.2) g/dL Albumin 4.6 (3.5-5.0) g/dL TSH 3rd Generation (0.47-4.68) mIU/L Ur Random Creatinine MG/DL Urine Sodium (30-90) mmol/L 07/28/23 07/28/23 07/28/23 Range/Units 00:25 05:24 05:24 WBC (4.0-10.5) x10^3/uL RBC (4.1-5.4) x10^6/uL Hgb (12.0-16.0) g/dL Hct (35-47) % MCV (78-100) fL MCH (26-32) pg MCHC (32-36) g/dL RDW (11.5-14.0) % Plt Count (150-450) x10^3/uL MPV (7.5-11.0) fL Gran % (36.0-66.0) % Immature Gran % (Auto) (0.00-0.4) % Nucleat RBC Rel Count (0.00-0.1) % Eos # (Auto) (0-0.5) x10^3/uL Immature Gran # (Auto) (0.00-0.03) x10^3u/L Absolute Lymphs (auto) (1.0-4.6) x10^3/uL Absolute Monos (auto) (0.0-1.3) x10^3/uL Absolute Nucleated RBC (0.00-0.01) x10^3u/L Lymphocytes % (24.0-44.0) % Monocytes % (0.0-12.0) % Eosinophils % (0.00-5.0) % Basophils % (0.0-0.4) % Absolute Granulocytes (1.4-6.9) x10^3/uL Basophils # (0-0.4) x10^3/uL Sodium 126 L (137-145) mmol/L Potassium 3.0 L* (3.5-5.1) mmol/L Chloride 93 L (98-107) mmol/L Carbon Dioxide 22 (22-30) mmol/L Anion Gap 14.4 (5-15) MEQ/L BUN 9 (7-17) mg/dL Creatinine 0.42 L (0.52-1.04) mg/dL Estimated GFR 98.8 ML/MIN Glucose 120 H (74-106) mg/dL Calcium 9.5 (8.4-10.2) mg/dL Magnesium (1.6-2.3) mg/dL Total Bilirubin 1.00 (0.2-1.3) mg/dL AST 30 (14-36) U/L ALT 17 (0-35) U/L Alkaline Phosphatase 100 (38-126) U/L Troponin I < 0.012 (0.000-0.034) ng/mL NT-Pro-B Natriuret Pep 63.6 (<300) pg/mL Serum Total Protein 7.4 (6.3-8.2) g/dL Albumin 4.4 (3.5-5.0) g/dL TSH 3rd Generation 1.150 (0.47-4.68) mIU/L Ur Random Creatinine MG/DL Urine Sodium (30-90) mmol/L 07/28/23 07/28/23 07/28/23 Range/Units 06:27 09:00 16:00 WBC (4.0-10.5) x10^3/uL RBC (4.1-5.4) x10^6/uL Hgb (12.0-16.0) g/dL Hct (35-47) % MCV (78-100) fL MCH (26-32) pg MCHC (32-36) g/dL RDW (11.5-14.0) % Plt Count (150-450) x10^3/uL MPV (7.5-11.0) fL Gran % (36.0-66.0) % Immature Gran % (Auto) (0.00-0.4) % Nucleat RBC Rel Count (0.00-0.1) % Eos # (Auto) (0-0.5) x10^3/uL Immature Gran # (Auto) (0.00-0.03) x10^3u/L Absolute Lymphs (auto) (1.0-4.6) x10^3/uL Absolute Monos (auto) (0.0-1.3) x10^3/uL Absolute Nucleated RBC (0.00-0.01) x10^3u/L Lymphocytes % (24.0-44.0) % Monocytes % (0.0-12.0) % Eosinophils % (0.00-5.0) % Basophils % (0.0-0.4) % Absolute Granulocytes (1.4-6.9) x10^3/uL Basophils # (0-0.4) x10^3/uL Sodium (137-145) mmol/L Potassium (3.5-5.1) mmol/L Chloride (98-107) mmol/L Carbon Dioxide (22-30) mmol/L Anion Gap (5-15) MEQ/L BUN (7-17) mg/dL Creatinine (0.52-1.04) mg/dL Estimated GFR ML/MIN Glucose (74-106) mg/dL Calcium (8.4-10.2) mg/dL Magnesium 1.7 (1.6-2.3) mg/dL Total Bilirubin (0.2-1.3) mg/dL AST (14-36) U/L ALT (0-35) U/L Alkaline Phosphatase (38-126) U/L Troponin I < 0.012 (0.000-0.034) ng/mL NT-Pro-B Natriuret Pep (<300) pg/mL Serum Total Protein (6.3-8.2) g/dL Albumin (3.5-5.0) g/dL TSH 3rd Generation (0.47-4.68) mIU/L Ur Random Creatinine 28.6 MG/DL Urine Sodium 38 (30-90) mmol/L 07/28/23 Range/Units 16:00 WBC (4.0-10.5) x10^3/uL RBC (4.1-5.4) x10^6/uL Hgb (12.0-16.0) g/dL Hct (35-47) % MCV (78-100) fL MCH (26-32) pg MCHC (32-36) g/dL RDW (11.5-14.0) % Plt Count (150-450) x10^3/uL MPV (7.5-11.0) fL Gran % (36.0-66.0) % Immature Gran % (Auto) (0.00-0.4) % Nucleat RBC Rel Count (0.00-0.1) % Eos # (Auto) (0-0.5) x10^3/uL Immature Gran # (Auto) (0.00-0.03) x10^3u/L Absolute Lymphs (auto) (1.0-4.6) x10^3/uL Absolute Monos (auto) (0.0-1.3) x10^3/uL Absolute Nucleated RBC (0.00-0.01) x10^3u/L Lymphocytes % (24.0-44.0) % Monocytes % (0.0-12.0) % Eosinophils % (0.00-5.0) % Basophils % (0.0-0.4) % Absolute Granulocytes (1.4-6.9) x10^3/uL Basophils # (0-0.4) x10^3/uL Sodium 128 L (137-145) mmol/L Potassium 3.5 (3.5-5.1) mmol/L Chloride 94 L (98-107) mmol/L Carbon Dioxide 26 (22-30) mmol/L Anion Gap 11.1 (5-15) MEQ/L BUN 8 (7-17) mg/dL Creatinine 0.53 (0.52-1.04) mg/dL Estimated GFR 93.4 ML/MIN Glucose 98 (74-106) mg/dL Calcium 9.2 (8.4-10.2) mg/dL Magnesium (1.6-2.3) mg/dL Total Bilirubin (0.2-1.3) mg/dL AST (14-36) U/L ALT (0-35) U/L Alkaline Phosphatase (38-126) U/L Troponin I (0.000-0.034) ng/mL NT-Pro-B Natriuret Pep (<300) pg/mL Serum Total Protein (6.3-8.2) g/dL Albumin (3.5-5.0) g/dL TSH 3rd Generation (0.47-4.68) mIU/L Ur Random Creatinine MG/DL Urine Sodium (30-90) mmol/L Radiology Exams: Radiology Procedures Category Date Time Status CHEST 1 VIEW (PORTABLE) Stat Exams 07/28/23 00:14 Completed HEAD WITHOUT CONTRAST [CT] Stat Exams 07/28/23 00:15 Completed <ELDER HERNANDES - Last Filed: 07/28/23 20:33> Assessment/Plan (1) Hypertensive urgency Current Visit: Yes Status: Acute Assessment & Plan: Blood pressure markedly elevated likely exacerbated by anxiety 1. Continue HCTZ for now despite hyponatremia/hypokalemia 2. Will add low dose calcium channel janki 3. Defer renal artery doppler for now 4. Monitor blood pressure readings 07/28: -Continue amlodipine/ d/c HCTZ -Hydralazine prn -BP improving Code(s): I16.0 - HYPERTENSIVE URGENCY (2) Hyponatremia Current Visit: Yes Status: Acute Assessment & Plan: Likely from thiazide diuretic 1. Limit free water 2. Check urine lytes, urine osmo to rule out SIADH from lung disease 3. Continue HCTZ for now 07/28: -Will d/c HCTZ -IVF at 100ml/hr Code(s): E87.1 - HYPO-OSMOLALITY AND HYPONATREMIA (3) COPD (chronic obstructive pulmonary disease) Current Visit: No Status: Acute Assessment & Plan: On inhalers 1. Continue duonebs 2. Supplemental O2 prn 3. Monitor oxygen sats 07/28: -Does not appear to be in exacerbation -On RA which is her baseline -continue above therapy (4) Hypokalemia due to inadequate potassium intake Current Visit: No Status: Acute Assessment & Plan: Likely from thiazide diuretic 1. Replete K 2. Check Mg 3. Trend electrolytes 07/28: -Potassium at 3.0, will replete, d/c HCTZ as this is most likely the cause Code(s): E87.6 - HYPOKALEMIA (5) CHF (congestive heart failure) Current Visit: Yes Status: Acute Assessment & Plan: -Does not appear to be in exacerbation -BNP WNL -No recent echo, last one performed on 06/06/16 showing EF 50-60% Code(s): I50.9 - HEART FAILURE, UNSPECIFIED <STEPHANIE HURLEY - Last Filed: 07/28/23 12:13> LISS Encounter - LISS Encounter Attestation LISS Encounter Attestation: "CASSIE Warren andhavediscussed pertinent aspects of their care with Stephanie Espinal agree with the history, physical exam (any modifications based on my personal exam will be noted below), assessment, and plan as outlined in original note. Please see immediately below for my summary of findings and additional assessment and plan along with any meaningful corrections/explanations to the Subjective/Objective portions of the LISS note will be noted." My portion of the encounter took place via telemedicine. -Hyponatremia and hypokalemia, possibly caused by HCTZ though she has been on it for years. At this time would stop HCTZ and initiate amlodipine for BP control. Observe BP today and repeat labs tomorrow with discharge home if improving. <ELDER HERNANDES - Last Filed: 07/28/23 20:33>
[2023-07-28 06:24] LABS: ALBUMIN 4.4 g/dL (3.5-5.0); ANION GAP 14.4 MEQ/L (5-15); Calcium 9.5 mg/dL (8.4-10.2); Creatinine 1 0.42 mg/dL (0.52-1.04); EST GLOMERULAR FILTRATION RATE 98.8 ML/MIN; TSH, 3RD Generation 1.15 mIU/L (0.47-4.68); Total Protein 7.4 g/dL (6.3-8.2)
[2023-07-28] MEDS ORDERED: Klor Con PO ONE (06:34)
[2023-07-28] MEDS: Sodium Chloride 0.9% 1000 ML 1,000 ML IV SCH ×2 (08:32→19:50)
[2023-07-28] MEDS: Protonix 40MG Tablet PO SCH (08:41)
--- NOTE | 2023-07-28 09:24 | XRAY ---
Indication: Hypertension. Comparison: May 15, 2023 Portable chest remains hyperinflated and clear with incidental right lung calcified granuloma. Heart not enlarged with small hiatal hernia. Bony thorax intact again with osteopenia, mild degenerative changes, and lumbar levoscoliosis. Impression: Continued nonacute hyperinflated chest with chronic features.
[2023-07-28] MEDS ORDERED: TYLENOL 325 MG PO PRN (09:35)
[2023-07-28] MEDS: Ativan 0.5 MG PO PRN ×2 (09:39→21:18)
[2023-07-28] MEDS: Klor Con PO SCH ×2 (09:39→21:19)
[2023-07-28] MEDS: PATIENT OWN MEDICATION IH SCH (09:44)
[2023-07-28] MEDS ORDERED: PATIENT OWN MEDICATION IH PRN (09:46)
[2023-07-28] MEDS ORDERED: hydroDIURIL 25 MG PO SCH (10:00)
[2023-07-28] MEDS ORDERED: NORVASC 5 MG PO SCH (10:00)
[2023-07-28] MEDS ORDERED: NORVASC 5 MG PO ONE (15:35)
[2023-07-28 16:22] LABS: ANION GAP 11.1 MEQ/L (5-15); Calcium 9.2 mg/dL (8.4-10.2); Creatinine 1 0.53 mg/dL (0.52-1.04); EST GLOMERULAR FILTRATION RATE 93.4 ML/MIN; Potassium 3.5 mmol/L (3.5-5.1)
[2023-07-28 16:36] LABS: CREATININE,URINE RANDOM 28.6 MG/DL
[2023-07-29 05:45] LABS: ALBUMIN 3.6 g/dL (3.5-5.0); BILIRUBIN,TOTAL 0.8 mg/dL (0.2-1.3); Creatinine 1 0.45 mg/dL (0.52-1.04); EST GLOMERULAR FILTRATION RATE 97.2 ML/MIN; Potassium 3.6 mmol/L (3.5-5.1); Total Protein 6.2 g/dL (6.3-8.2)
[2023-07-29] MEDS: PATIENT OWN MEDICATION IH SCH (07:37)
[2023-07-29] MEDS ORDERED: Dextrose 5%-NS IV Solution 1000 ML 1,000 ML IV SCH (08:00)
[2023-07-29 08:11] LABS: Hematocrit 40.3 % (35-47); Mean Cell Volume 86.7 fL (78-100); Mean Corpuscular Hemoglobin 30.1 pg (26-32); Mean Corpuscular Hgb Concent. 34.7 g/dL (32-36); Mean Platelet Volume 10.6 fL (7.5-11.0); Platelet Count 231 x10^3/uL (150-450); Red Blood Count 4.65 x10^6/uL (4.1-5.4); Red Cell Distribution Width 12.2 % (11.5-14.0); White Blood Count 4.9 x10^3/uL (4.0-10.5)
[2023-07-29] MEDS: Ativan 0.5 MG PO PRN (08:59)
[2023-07-29] MEDS: Protonix 40MG Tablet PO SCH (08:59)
[2023-07-29] MEDS: Klor Con PO SCH (08:59)
--- NOTE | 2023-07-29 09:40 | PCM.DS ---
Discharge Summary Date of Admission: 07/28/23 02:35 Date of Discharge: 07/29/23 Admitting Physician: JA MATTHEW MD Primary Care Provider: NANCY ELDRIDGE Allergies Allergies cephalexin monohydrate [From Keflex] Allergy (Mild, Verified 07/28/23 00:41) Nausea oxycodone HCl [From OxyContin] Allergy (Mild, Verified 07/28/23 00:41) Nausea and Vomiting DIZZY codeine Allergy (Verified 07/28/23 00:41) Nausea and Vomiting iodine Allergy (Verified 07/28/23 00:41) Hospital Summary - Hospital Course Hospital Course: Ms. Talbot is a 82 year old female with a PMHX of HTN, HLD, CHF, COPD,RA, anxiety, depression, and GERD. She presented to ED 07/28/23 with markedly elevated blood pressure above her baseline of about ~ 120 systolic. She was found to be in the 190s and has been fairly anxious. No chest pain or shortness of breath. Her initial labs were notable for a sodium of 128, which is similar to the past. She has not used any NSAIDs or had exposure to contrast. Head CT with no evidence of acute acute territorial infarction, intracranial or extracranial hemorrhage.Patient admitted for hyponatremia/hypokalemia and hyper tensive urgency, hydrated, and potassium repleted. H/A, BP and dizziness improved. BP improved since starting Amlodipine 10mg daily. HCTZ discontinued. Pt is wanting to f/u with Dr. Pearson OP. - Vitals & Intake/Output Vital Signs: Vital Signs Temperature 97.5 F 07/29/23 07:37 Pulse Rate 64 07/29/23 07:39 Respiratory Rate 16 07/29/23 07:39 Blood Pressure 149/67 07/29/23 08:50 O2 Sat by Pulse Oximetry 98 07/29/23 07:39 Intake & Output: Intake & Output 07/26/23 07/27/23 07/28/23 07/29/23 11:59 11:59 11:59 11:59 Intake Total 240 1188 Output Total 250 1450 Balance -10 -262 Weight 63.7 kg - Lab Result Diagrams: 07/29/23 04:30 07/29/23 12:10 Lab Results-Last 24 Hrs: Lab Results-Last 24 Hours 07/28/23 07/28/2307/28/24 Range/Units 09:00 16:00 16:00 WBC (4.0-10.5) x10^3/uL RBC (4.1-5.4) x10^6/uL Hgb (12.0-16.0) g/dL Hct (35-47) % MCV (78-100) fL MCH (26-32) pg MCHC (32-36) g/dL RDW (11.5-14.0) % Plt Count (150-450) x10^3/uL MPV (7.5-11.0) fL Sodium 128 L (137-145) mmol/L Potassium 3.5 (3.5-5.1) mmol/L Chloride 94 L (98-107) mmol/L Carbon Dioxide 26 (22-30) mmol/L Anion Gap 11.1 (5-15) MEQ/L BUN 8 (7-17) mg/dL Creatinine 0.53 (0.52-1.04) mg/dL Estimated GFR 93.4 ML/MIN Glucose 98 (74-106) mg/dL Calcium 9.2 (8.4-10.2) mg/dL Total Bilirubin (0.2-1.3) mg/dL AST (14-36) U/L ALT (0-35) U/L Alkaline Phosphatase (38-126) U/L Troponin I < 0.012 (0.000-0.034) ng/mL Serum Total Protein (6.3-8.2) g/dL Albumin (3.5-5.0) g/dL Ur Random Creatinine 28.6 MG/DL Urine Sodium 38 (30-90) mmol/L 07/29/23 07/29/23 Range/Units 04:00 04:30 WBC 4.9 (4.0-10.5) x10^3/uL RBC 4.65 (4.1-5.4) x10^6/uL Hgb 14.0 (12.0-16.0) g/dL Hct 40.3 (35-47) % MCV 86.7 (78-100) fL MCH 30.1 (26-32) pg MCHC 34.7 (32-36) g/dL RDW 12.2 (11.5-14.0) % Plt Count 231 (150-450) x10^3/uL MPV 10.6 (7.5-11.0) fL Sodium 129 L (137-145) mmol/L Potassium 3.6 (3.5-5.1) mmol/L Chloride 102 (98-107) mmol/L Carbon Dioxide 22 (22-30) mmol/L Anion Gap 9.0 (5-15) MEQ/L BUN 8 (7-17) mg/dL Creatinine 0.45 L (0.52-1.04) mg/dL Estimated GFR 97.2 ML/MIN Glucose 98 (74-106) mg/dL Calcium 9.0 (8.4-10.2) mg/dL Total Bilirubin 0.80 (0.2-1.3) mg/dL AST 27 (14-36) U/L ALT 13 (0-35) U/L Alkaline Phosphatase 72 (38-126) U/L Troponin I (0.000-0.034) ng/mL Serum Total Protein 6.2 L (6.3-8.2) g/dL Albumin 3.6 (3.5-5.0) g/dL Ur Random Creatinine MG/DL Urine Sodium (30-90) mmol/L - Radiology Exams Ordered Rad Exams-Entire Visit: Radiology Procedures Category Date Time Status CHEST 1 VIEW (PORTABLE) Stat Exams 07/28/23 00:14 Completed HEAD WITHOUT CONTRAST [CT] Stat Exams 07/28/23 00:15 Completed - Procedures and Test Procedures and Tests throughout Hospitalization: Therapy Orders & Screens 07/28/23 02:39 Respiratory Therapy Consult ONCE Comment: Reason For Exam: 07/28/23 03:53 Respiratory Therapy Assessment DAILY Comment: Diagnosis: hypertension 07/28/23 03:55 Respiratory MDI UD Comment: Diagnosis: hypertension Discharge Exam General Appearance: no apparent distress, alert Neurologic Exam: alert, oriented x 3, cooperative, normal mood/affect, nml cerebellar function, sensation nml, No motor deficits Eye Exam: PERRL, EOMI, eyes nml inspection Ears, Nose, Throat Exam: normal ENT inspection, pharynx normal, moist mucous membranes Neck Exam: normal inspection, non-tender, supple, full range of motion Respiratory Exam: normal breath sounds, lungs clear, No respiratory distress Cardiovascular Exam: regular rate/rhythm, normal heart sounds Gastrointestinal/Abdomen Exam: soft, No tenderness, No mass Pelvic Exam: deferred Rectal Exam: deferred Back Exam: normal inspection, normal range of motion, No CVA tenderness, No vertebral tenderness Extremity Exam: normal inspection, normal range of motion Skin Exam: normal color, warm, dry Final Diagnosis/Problem List - Final Discharge Diagnosis/Problem (1) Hypertensive urgency Current Visit: Yes Status: Acute Assessment & Plan: -Continue amlodipine - anxiety plays a role in HTN - d/c HCTZ -Hydralazine prn -BP improved Code(s): I16.0 - HYPERTENSIVE URGENCY (2) Hyponatremia Current Visit: Yes Status: Acute Assessment & Plan: - D/C HCTZ - Na+ 129 - will recheck at noon and if ok will d/c. - dizziness - PT eval - cramps resolved - IVF Code(s): E87.1 - HYPO-OSMOLALITY AND HYPONATREMIA (3) Hypokalemia Current Visit: Yes Status: Acute Assessment & Plan: - resolved Code(s): E87.6 - HYPOKALEMIA (4) Anxiety Current Visit: Yes Status: Chronic Assessment & Plan: - Chronic- Continue meds Code(s): F41.9 - ANXIETY DISORDER, UNSPECIFIED (5) CHF (congestive heart failure) Current Visit: Yes Status: Chronic Assessment & Plan: -Does not appear to be in exacerbation -BNP WNL -No recent echo, last one performed on 06/06/16 showing EF 50-60% Code(s): I50.9 - HEART FAILURE, UNSPECIFIED (6) COPD (chronic obstructive pulmonary disease) Current Visit: No Status: Chronic Assessment & Plan: -Does not appear to be in exacerbation -On RA which is her baseline -duonebs PRN - Discharge Discharge Date: 07/29/23 Disposition: Home, Self-Care Condition: Stable Prescriptions: New Amlodipine Besylate 5 mg [Norvasc 5 mg] 10 mg PO DAILY 30 Days #30 tablet Continue Potassium Chloride 10 meq PO BID Fluticasone/Vilanterol [Breo Ellipta 100-25 Mcg Inhalr] 1 each IH DAILY Albuterol Sulfate [Proair Hfa] 2 puffs IH Q2H/PRN PRN PRN Reason: Shortness Of Breath Omeprazole 20 MG [Prilosec 20 mg] 20 mg PO BID Linaclotide [Linzess] 290 mcg PO DAILY Meclizine HCl 25 mg [Antivert 25 mg] 1 tab PO TID PRN PRN PRN Reason: Dizziness Discontinued Hydrochlorothiazide 25 mg [hydroDIURIL 25 MG] 25 mg PO DAILY Additional Instructions: PATIENT WANTED TO SEE DR PEARSON BUT THEY HAVE DISMISSED HER FROM THEIR CARE. CAN NOT SCHEDULE ANY APPOINTMENTS. [place] 07-29-23 [id number] Follow up with: NANCY ELDRIDGE [Primary Care Provider] - 08/14/23 4:15 pm (FOLLOW UP WILL UP AT THE [facility]ICE. )
[2023-07-29] MEDS ORDERED: NORVASC 5 MG PO SCH (10:00)
[2023-07-29 12:10] VITALS: BP 127/65; PULSE 67; RESP 17; TEMP 97.7; O2SAT 96
[2023-07-29 12:28] LABS: ANION GAP 8.5 MEQ/L (5-15); Calcium 8.9 mg/dL (8.4-10.2); Creatinine 1 0.48 mg/dL (0.52-1.04); EST GLOMERULAR FILTRATION RATE 95.7 ML/MIN; Potassium 3.9 mmol/L (3.5-5.1)
== END 2023-07-29 15:20 | disposition home or self-care (01) ==
LOC: ED 00:03 → MED SURG 02:35
PROVIDERS: ADMIT Internal Medicine Nephrology; ATTEND Internal Medicine Nephrology
DX: I16.0 Hypertensive urgency (principal); E87.1 Hypo-osmolality and hyponatremia; E87.6 Hypokalemia; F41.9 Anxiety disorder, unspecified; I11.0 Hypertensive heart disease with heart failure; I50.9 Heart failure, unspecified; J44.9 Chronic obstructive pulmonary disease, unspecified; K44.9 Diaphragmatic hernia without obstruction or gangrene; E78.5 Hyperlipidemia, unspecified; Z79.899 Other long term (current) drug therapy; Z20.828 Contact with and (suspected) exposure to other viral communicable diseases
CPT/HCPCS: 36000; 36415; 70450; 71045; 80048; 80053; 82570; 83735; 83880; 83935; 84300; 84443; 84484; 85025; 85027; 93005; 93041; 94640; 94760; 96374; 97161; 99285; Q3014; 93268; J0360; A9270-GY; G0378

== ENCOUNTER 2024-02-01 22:49 | Emergency (ER) | payer MEDICARE ==
--- NOTE | 2024-02-01 23:02 | ERPHSYRPT ---
- History of Present Illness Time Seen by Provider: 02/01/24 22:56 Historian: patient Exam Limitations: no limitations Physician History: The patient, with a history of hypertension and hernia, presents with worsening dizziness and headaches over several weeks. They also report a throbbing sensation under the armpit, leg and ankle pain, and visual disturbances. The pat ient describes these visual disturbances as their "eyes playing tricks" on them. They also note a sensation of water in their right eye, which is more severe than the left. The patient has been experiencing discomfort behind the ears and down the shoulders, which is exacerbated upon waking from sleep due to neck stiffness. They also report a high blood pressure reading of 204/87 taken recently. In addition to these symptoms, the patient complains of severe lower back pain and suspects a kidney infection. They mention a recent hospital visit where urine was tested, but they did not receive any results or feedback. The patient was scheduled for multiple tests, including a head scan and EKG, as well as chest and rib x-rays. They express concern about the use of contrast dye for the head scan, indicating they have not had this procedure before. Timing/Duration: today Activities at Onset: rest Quality: pressure Location: substernal Chest Pain Radiation: neck Severity of Pain-Max: severe Severity of Pain-Current: mild Modifying Factors: Improves With: nothing. Worsens With: exertion Associated Symptoms: palpitations, heartburn, shortness of breath, cough, fat igue, weakness, headache, dizziness, edema, back pain, No nausea, No vomiting, No abdominal pain, No diaphoresis, No chills, No fever Prior Chest Pain/Cardiac Workup: no prior chest pain Nitro Today/Relief: 0.4 mg x 1, provided by ED Aspirin Treatment Today: 81 mg x 4, provided by ED Allergies/Adverse Reactions: cephalexin monohydrate [From Keflex] Allergy (Mild, Verified 02/01/24 23:28) Nausea oxycodone HCl [From OxyContin] Allergy (Mild, Verified 02/01/24 23:28) Nausea and Vomiting DIZZY codeine Allergy (Verified 02/01/24 23:28) Nausea and Vomiting iodine Adverse Reaction (Verified 02/01/24 23:58) Vomiting Home Medications: Albuterol Sulfate [Proair Hfa] 2 puffs IH Q2H/PRN PRN 01/29/16 [History] Fluticasone/Vilanterol [Breo Ellipta 100-25 Mcg Inhalr] 1 each IH DAILY 01/29/16 [History] Potassium Chloride 10 meq PO BID 01/29/16 [History] Omeprazole 20 MG [Prilosec 20 mg] 20 mg PO BID 07/23/16 [History] Linaclotide [Linzess] 290 mcg PO DAILY 06/14/19 [History] Meclizine HCl 25 mg [Antivert 25 mg] 1 tab PO TID PRN PRN 07/28/23 [History] Hx Tetanus, Diphtheria Vaccination/Date Given: Yes Hx Influenza Vaccination/Date Given: No Hx Pneumococcal Vaccination/Date Given: Yes - Review of Systems All Other Systems: Reviewed and Negative - Past Medical History Pertinent Past Medical History: Yes Neurological History: No Pertinent History ENT History: No Pertinent History Cardiac History: Congestive Heart Failure Respiratory History: Asthma, CHF, COPD Endocrine Medical History: No Pertinent History Musculoskeletal History: Rheumatoid Arthritis, Other GI Medical History: GERD, Hernia, Other History: No Pertinent History Psycho-Social History: Anxiety, Depression Female Reproductive Disorders: No Pertinent History Other Medical History: Hiatal Hernia, History of backpain, sciatica pain. lung stem cell treatment 2017 - Past Surgical History Past Surgical History: Yes Neuro Surgical History: No Pertinent History Cardiac: No Pertinent History Respiratory: No Pertinent History Gastrointestinal: No Pertinent History Genitourinary: No Pertinent History Musculoskeletal: Orthopedic Surgery Female Surgical History: Hysterectomy Other Surgical History: trigger finger, orif of left knee cap, HIATAL HERNIA, in [facility] in October for COPD,bronchitis , pneumonia. Thyroidectomy (left lobe) Significant Family History: no pertinent family hx - Social History Smoking Status: Former smoker How long have you smoked: 1 Exposure to second hand smoke: No Alcohol Use: None Drug Use: none Patient Lives Alone: No - Social Determinants of Health Will the patient participate in the screening: Yes Do you worry about a steady place to live?: No In the past 12 months,have you had to go without utilities?: No Transportation Issues: No Has anyone in your support network made you feel unsafe?: No Have you or anyone in your house had to go without enough: No - Nursing Vital Signs Nursing Vital Signs: Initial Vital Signs Pulse Rate 67 02/01/24 23:00 Respiratory Rate 18 02/01/24 23:00 O2 Sat by Pulse Oximetry 97 02/01/24 23:00 Pain Scale Pain Intensity 6 - Physical Exam General Appearance: no apparent distress Eye Exam: PERRL/EOMI, eyes nml inspection Ears, Nose, Throat Exam: normal ENT inspection, TMs normal, pharynx normal Neck Exam: normal inspection, non-tender, supple, full range of motion Respiratory Exam: normal breath sounds, lungs clear, airway intact, No respiratory distress Cardiovascular Exam: regular rate/rhythm, normal heart sounds, capillary refill <2 sec, No edema Gastrointestinal/Abdomen Exam: soft, normal bowel sounds, No tenderness, No distention, No mass, No guarding, No rebound Back Exam: normal inspection Extremity Exam: normal inspection, normal range of motion, pedal edema, tenderness Neurologic Exam: alert, oriented x 3, cooperative Skin Exam: normal color, warm, dry SpO2 Interpretation: normal O2 Delivery: Room Air - Course Nursing assessment & vital signs reviewed: Yes EKG Interpreted by Me: RATE (66), Sinus Rhythm, NORMAL AXIS, NORMAL QRS, NORMAL ST-T, Other (OR 216) - CT Exams Soft Tissue Neck CT Interpretation: Tele-radiologist Report (<50% carotid stenosis, no acute findings) Head CT Interpretation: Negative, Tele-radiologist Report Chest CT Interpretation: Tele-radiologist Report, No PE, Other (No PNA) Ordered Tests: Active Orders 24 hr Category Date Time 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 02/01/24 23:17 Completed EKG-ER Only STAT Care 02/01/24 23:16 Completed IV Insertion STAT Care 02/01/24 23:16 Completed CHEST 1 VIEW (PORTABLE) Stat Exams 02/01/24 22:54 Completed CHEST WITHOUT CONTRAST [CT] Stat Exams 02/01/24 23:[address] ANGIOGRAPHY NECK [CT] Stat Exams 02/01/24 23:18 Completed CTA HEAD W AND/OR WO CONTRAST [CT] Stat Exams 02/01/24 23:18 Completed CBC W DIFF Stat Lab 02/01/24 23:21 Completed CK-Creatinine Phosphokinase Stat Lab 02/01/24 23:21 Completed CMP Stat Lab 02/01/24 23:21 Completed NT PRO BNPII Stat Lab 02/01/24 23:21 Completed TROPONIN Q4H Lab 02/01/24 23:21 Completed TSH [TSH, 3RD Generation] Stat Lab 02/01/24 23:21 Completed UA W/RFX UR CULTURE Stat Lab 02/02/24 01:53 Completed Medication Summary Discontinued Medications Generic Name Dose Route Start Last Admin Trade Name Shelly PRN Reason Stop Dose Admin Aspirin 324 mg 02/01/24 23:16 02/01/24 23:49 Aspirin 81 Mg Tab.Chew PO 02/01/24 23:17 324 mg STAT ONE Administration Aspirin Confirm 02/01/24 23:35 Aspirin 81 Mg Tab.Chew Administered 02/01/24 23:36 Dose 324 mg .ROUTE .STK-MED ONE Enalaprilat 2.5 mg 02/01/24 23:30 02/01/24 23:47 Enalaprilat 2.5 Mg Injection IV 02/01/24 23:31 2.5 mg STAT ONE Administration Enalaprilat Confirm 02/01/24 23:37 Enalaprilat 2.5 Mg Injection Administered 02/01/24 23:38 Dose 2.5 mg IV .STK-MED ONE Hydrochlorothiazide 50 mg 02/02/24 23:30 Hydrochlorothiazide 25 Mg Tablet PO 02/02/24 23:31 ONCE ONE Hydrochlorothiazide Confirm 02/02/24 00:34 Hydrochlorothiazide 25 Mg Tablet Administered 02/02/24 00:35 Dose 50 mg .ROUTE .STK-MED ONE Sodium Chloride 1,000 mls @ 999 mls/hr 02/01/24 23:16 02/02/24 00:55 Sodium Chloride 0.9% 1000 Ml IV 02/02/24 00:16 Infused .Q1H1M STA Infusion Sodium Chloride Confirm 02/01/24 23:36 Sodium Chloride 0.9% 1000 Ml Administered 02/01/24 23:37 Dose 1,000 mls @ ud .ROUTE .STK-MED ONE Nitroglycerin 0.4 mg 02/01/24 23:16 02/01/24 23:50 Nitroglycerin 0.4 Mg (Ed) 0.4 Mg Tab.Subl SL 02/01/24 23:17 0.4 mg STAT ONE Administration Nitroglycerin Confirm 02/01/24 23:36 Nitroglycerin 0.4 Mg (Ed) 0.4 Mg Tab.Subl Administered 02/01/24 23:37 Dose 0.4 mg SL .STK-MED ONE Lab/Rad Data: Laboratory Result Diagrams 02/01/24 23:21 02/01/24 23:21 Laboratory Results 02/02/24 02/01/24 02/01/24 Range/Units 01:53 23:21 23:21 WBC (3.98-10.04) x10^3/uL RBC (3.93-5.22) x10^6/uL Hgb (11.2-15.7) g/dL Hct (34.1-44.9) % MCV (79.4-94.8) fL MCH (25.6-32.2) pg MCHC (32.2-35.5) g/dL RDW (11.7-14.4) % Plt Count (182-369) x10^3/uL MPV (9.4-12.3) fL Gran % (34.0-71.1) % Immature Gran % (Auto) (0.001-0.429) % Nucleat RBC Rel Count (0.00-0.2) % Eos # (Auto) (0.04-0.36) x10^3/uL Immature Gran # (Auto) (0.001-0.031) x10^3u/L Absolute Lymphs (auto) (1.18-3.74) x10^3/uL Absolute Monos (auto) (0.24-0.86) x10^3/uL Absolute Nucleated RBC (0.00-0.012) x10^3u/L Lymphocytes % (19.3-51.7) % Monocytes % (4.7-12.5) % Eosinophils % (0.7-5.8) % Basophils % (0.1-1.2) % Absolute Granulocytes (1.56-6.13) x10^3/uL Basophils # (0.01-0.08) x10^3/uL Sodium (135-145) mmol/L Potassium (3.5-5.1) mmol/L Chloride (98-107) mmol/L Carbon Dioxide (22-30) mmol/L Anion Gap (5-15) MEQ/L BUN (7-17) mg/dL Creatinine (0.52-1.04) mg/dL Estimated GFR ML/MIN Glucose (74-106) mg/dL Calcium (8.4-10.2) mg/dL Total Bilirubin (0.2-1.3) mg/dL AST (14-36) U/L ALT (0-35) U/L Alkaline Phosphatase (38-126) U/L Creatine Kinase (30-135) U/L Troponin I < 0.012 (0.000-0.033) ng/mL NT-Pro-B Natriuret Pep 122 (<300) pg/mL Serum Total Protein (6.3-8.2) g/dL Albumin (3.5-5.0) g/dL TSH 3rd Generation 1.549 (0.470-4.680) mIU/L Urine Color Yellow (Yellow) Urine Appearance Clear (Clear) Urine pH 7.0 (4.6-8.0) Ur Specific Steele >=1.030 A (1.005-1.030) Urine Protein Negative (Negative) Urine Glucose (UA) Negative (Negative) mg/dL Urine Ketones 15 A (Negative) Urine Blood Negative (Negative) Urine Nitrite Negative (Negative) Urine Bilirubin Negative (Negative) Urine Urobilinogen 0.2 (0.2) mg/dL Ur Leukocyte Esterase Small A (Negative) U Hyaline Cast (Auto) NONE SEEN (0-2) /LPF Urine Microscopic RBC 0-2 (0-5) /HPF Urine Microscopic WBC 6-10 A (0-5) /HPF Ur Epithelial Cells None Seen (None Seen) /HPF Urine Bacteria None Seen (None Seen) /HPF Urine Culture Reflexed NO (NO) 02/01/24 02/01/24 Range/Units 23:21 23:21 WBC 6.4 (3.98-10.04) x10^3/uL RBC 4.86 (3.93-5.22) x10^6/uL Hgb 14.5 (11.2-15.7) g/dL Hct 40.9 (34.1-44.9) % MCV 84.2 (79.4-94.8) fL MCH 29.8 (25.6-32.2) pg MCHC 35.5 (32.2-35.5) g/dL RDW 12.2 (11.7-14.4) % Plt Count 229 (182-369) x10^3/uL MPV 10.9 (9.4-12.3) fL Gran % 54.6 (34.0-71.1) % Immature Gran % (Auto) 0.3 (0.001-0.429) % Nucleat RBC Rel Count 0.0 (0.00-0.2) % Eos # (Auto) 0.21 (0.04-0.36) x10^3/uL Immature Gran # (Auto) 0.02 (0.001-0.031) x10^3u/L Absolute Lymphs (auto) 1.81 (1.18-3.74) x10^3/uL Absolute Monos (auto) 0.82 (0.24-0.86) x10^3/uL Absolute Nucleated RBC 0.00 (0.00-0.012) x10^3u/L Lymphocytes % 28.2 (19.3-51.7) % Monocytes % 12.8 H (4.7-12.5) % Eosinophils % 3.3 (0.7-5.8) % Basophils % 0.8 (0.1-1.2) % Absolute Granulocytes 3.50 (1.56-6.13) x10^3/uL Basophils # 0.05 (0.01-0.08) x10^3/uL Sodium 129 L (135-145) mmol/L Potassium 3.7 (3.5-5.1) mmol/L Chloride 94 L (98-107) mmol/L Carbon Dioxide 26 (22-30) mmol/L Anion Gap 13.3 (5-15) MEQ/L BUN 10 (7-17) mg/dL Creatinine 0.59 (0.52-1.04) mg/dL Estimated GFR 90.5 ML/MIN Glucose 98 (74-106) mg/dL Calcium 9.6 (8.4-10.2) mg/dL Total Bilirubin 0.90 (0.2-1.3) mg/dL AST 31 (14-36) U/L ALT 22 (0-35) U/L Alkaline Phosphatase 100 (38-126) U/L Creatine Kinase 94 (30-135) U/L Troponin I (0.000-0.033) ng/mL NT-Pro-B Natriuret Pep (<300) pg/mL Serum Total Protein 6.9 (6.3-8.2) g/dL Albumin 4.4 (3.5-5.0) g/dL TSH 3rd Generation (0.470-4.680) mIU/L Urine Color (Yellow) Urine Appearance (Clear) Urine pH (4.6-8.0) Ur Specific Steele (1.005-1.030) Urine Protein (Negative) Urine Glucose (UA) (Negative) mg/dL Urine Ketones (Negative) Urine Blood (Negative) Urine Nitrite (Negative) Urine Bilirubin (Negative) Urine Urobilinogen (0.2) mg/dL Ur Leukocyte Esterase (Negative) U Hyaline Cast (Auto) (0-2) /LPF Urine Microscopic RBC (0-5) /HPF Urine Microscopic WBC (0-5) /HPF Ur Epithelial Cells (None Seen) /HPF Urine Bacteria (None Seen) /HPF Urine Culture Reflexed (NO) - Progress Progress: improved Air Movement: good Progress Note: Workup negative for acute stroke today. Workup negative for cardiac etiology of chest pain. Nodules found on right lobe of thyroid, TSH wnl today. Patient reports have these bx in the past. Na 129, given 1L NS bolus in ED. Patient feeling much better on reevaluation after IVF. 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 She already has echo scheduled. Blood Culture(s) Obtained: No Antibiotics given: No Counseled pt/family regarding: lab results, diagnosis, need for follow-up, rad results Medical Desision Making - Diagnostic Testing Diagnostic test were ordered, analyzed, and reviewed by me: Yes Radiological Interpretation: Interpreted by me, Reviewed by me, Teleradiologist Report - Risk of complications Low Risk: Low risk of morbidity from additional dx testing or treatment - Departure Departure Disposition: Home Clinical Impression: Hyponatremia, Hypertensive urgency, Thyroid nodule, Dizziness, Uncontrolled hypertension, Non-cardiac chest pain Condition: Good Critical Care Time: No Referrals: AMY ELDRIDGE [Primary Care Provider] - Follow up/PCP as directed Instructions: Chest Pain (DC)
[2024-02-01 23:24] LABS: BASOPHIL % 0.8 % (0.1-1.2); Basophil (Absolute #) 0.05 x10^3/uL (0.01-0.08); Eosinophil % 3.3 % (0.7-5.8); Eosinophil (Absolute #) 0.21 x10^3/uL (0.04-0.36); Hematocrit 40.9 % (34.1-44.9); Hemoglobin 14.5 g/dL (11.2-15.7); IMMATURE GRAN # 0.02 x10^3u/L (0.001-0.031); IMMATURE GRAN % 0.3 % (0.001-0.429); Lymphocyte (Absolute #) 1.81 x10^3/uL (1.18-3.74); Lymphocytes % 28.2 % (19.3-51.7); Mean Cell Volume 84.2 fL (79.4-94.8); Mean Corpuscular Hemoglobin 29.8 pg (25.6-32.2); Mean Corpuscular Hgb Concent. 35.5 g/dL (32.2-35.5); Mean Platelet Volume 10.9 fL (9.4-12.3); Monocyte (Absolute #) 0.82 x10^3/uL (0.24-0.86); Monocytes % 12.8 % (4.7-12.5); Neutrophil % 54.6 % (34.0-71.1); Platelet Count 229 x10^3/uL (182-369); Red Blood Count 4.86 x10^6/uL (3.93-5.22); Red Cell Distribution Width 12.2 % (11.7-14.4); White Blood Count 6.4 x10^3/uL (3.98-10.04)
[2024-02-01 23:31] LABS: ALBUMIN 4.4 g/dL (3.5-5.0); ANION GAP 13.3 MEQ/L (5-15); BILIRUBIN,TOTAL 0.9 mg/dL (0.2-1.3); Calcium 9.6 mg/dL (8.4-10.2); Creatinine 1 0.59 mg/dL (0.52-1.04); EST GLOMERULAR FILTRATION RATE 90.5 ML/MIN; Potassium 3.7 mmol/L (3.5-5.1); Total Protein 6.9 g/dL (6.3-8.2)
[2024-02-01] MEDS ORDERED: BABY ASPIRIN 81 MG CHEW ONE (23:35)
[2024-02-01] MEDS ORDERED: Sodium Chloride 0.9% 1000 ML 1,000 ML ONE (23:36)
[2024-02-01] MEDS ORDERED: Nitrostat 0.4 MG (ED) SL ONE (23:36)
[2024-02-01] MEDS ORDERED: ENALAPRILAT 2.5 MG INJECTION IV ONE (23:37)
[2024-02-01 23:43] LABS: NT PRO BNPII 122 pg/mL (<300); TROPONIN < 0.012 ng/mL (0.000-0.033)
[2024-02-01] MEDS: ENALAPRILAT 2.5 MG INJECTION IV ONE (23:47)
[2024-02-01] MEDS: Sodium Chloride 0.9% 1000 ML 1,000 ML IV STA (23:48)
[2024-02-01] MEDS: BABY ASPIRIN 81 MG CHEW PO ONE (23:49)
[2024-02-01] MEDS: Nitrostat 0.4 MG (ED) SL ONE (23:50)
[2024-02-02] MEDS ORDERED: hydroDIURIL 25 MG ONE (00:34)
--- NOTE | 2024-02-02 01:29 | XRAY ---
CLINICAL HISTORY: chest pain COMPARISON: None. TECHNIQUE: Contiguous axial images were obtained from the neck base through the upper abdomen without contrast. In addition, sagittal and coronal reconstructions were performed to potentially increase the sensitivity for the detection of disease. CT scan was performed according to ALARA (as low as reasonable achievable). FINDINGS: A calcified nodule measuring 4mm is seen in anterior segment of right upper lobe. Rest of the lungs are clear, with no focal areas of consolidation. The central airways are patent. There are no pleural effusions. No pneumothorax is seen. Evaluation of the mediastinum and paulie is limited due to the lack of intravenous contrast. No axillary or mediastinal adenopathy is identified. The left lobe of thyroid gland is not visualised. The right lobe of thyroid gland demonstrates a small hypodense nodule measuring 9 mm - ultrasound correlation is recommended. The heart, aorta, and pulmonary arteries are of normal size and configuration. There are appreciable coronary artery and aortic atherosclerotic calcifications. No pericardial effusion is identified. Liver shows multiple well defined thin walled cysts. Hiatus hernia is seen. Rest of the imaged portions of the upper abdomen are unremarkable. Degenerative changes are seen in the visualised dorsal spine. No aggressive appearing osseous lesions are identified. IMPRESSION: 1.Calcified right upper lobe lung nodule - old calcified granuloma. 2.Coronary artery calcification. 3.Multiple hepatic cystic lesions. Advise ultrasound or CECT abdomen for further evaluation. 4.Hiatus hernia. 5. The left lobe of thyroid gland is not visualised. The right lobe of thyroid gland demonstrates a small hypodense nodule measuring 9 mm - ultrasound correlation is recommended. Electronically Signed by: Sj Abreu MD. (02/02/2024 01:24:42 EDT)
--- NOTE | 2024-02-02 01:51 | XRAY ---
CLINICAL HISTORY: dizziness COMPARISON: Nil. TECHNIQUE: Contrast enhanced thin slice CT angiography scan of the carotid and cerebral vessels was performed with intravenous contrast. Angiographic images were processed, 3D MIP images were acquired for interpretation.Contiguous axial images were obtained. Reformatted coronal and sagittal images were also reviewed. If IV contrast material had not been administered, the likelihood of detecting abnormalities relevant to the patients condition would have been substantially decreased. CT scan was performed according to ALARA (as low as reasonably achievable). FINDINGS: Included great vessels of the aortic arch are grossly unremarkable. Calcified plaque in the bilateral carotid bulb which are extendig to invlove internal carotid ostia with 20-30% stenosis on right side and 50-60% on left side of ostioproximal segment of internal carotid arteries. Common carotid artery and origin of the external carotid artery are well opacified. Vertebral arteries are well opacified. Jugular veins are well opacified. Bilateral internal carotid arteries show normal course, calibre and opacification in the canalicular and cavernous part. Bilateral vertebral arteries are seen to unite the form the basilar artery in a normal fashion. Basilar artery shows normal course, caliber and opacification. Its division into the posterior cerebral arteries is defined. Bilateral P1 and P2 segments are normal. Visualized venous structures show normal opacification. No evidence of intracranial aneurysm or AV malformation is seen. Included lung apices are grossly unremarkable. Thyroid gland shows multiple noudles of varying size in the right lobe, largest measurung [id number]. Left lobe of thyroid gland is not visualized. Severe degenrative changes of atlantoaxial joints with cyst in the posterior aspect of dens. degenrativ changes of cervical spine with osteophytes , reduced disc hieghts, and facetal arthropathy at multiple levels. Grade I anterior listhesis of C7 over T1 and retrolisthesis of C5 over C6. IMPRESSION: 1. Ostioproximal segment of internal carotid arteries shows 20-30% stenosis on right side and 50-60% on left side. 2.Multiple right lobe thyroid nodules. SUgeested USG thyroid for better evaluation. Left lobe of thyroid gland is not visualized. 3. Severe degenrative changes of atlantoaxial joints. 4. Cervical spondylosis withGrade I anterior listhesis of C7 over T1 and retrolisthesis of C5 over C6. Electronically Signed by: Sj Abreu MD. (02/02/2024 01:47:37 EDT)
--- NOTE | 2024-02-02 01:53 | XRAY ---
CLINICAL HISTORY: dizziness COMPARISON: CT HEAD WITHOUT CONTRAST- 07/27/2023. TECHNIQUE: Multiple axial images are obtained from the skull base to the vertex without and with intravenous contrast. Angiographic images were processed, 3D MIP images were acquired for interpretation. Contiguous axial images were obtained. Reformatted coronal and sagittal images were also reviewed. If IV contrast material had not been administered, the likelihood of detecting abnormalities relevant to the patient's condition would have been substantially decreased. CT scan was performed according to ALARA (as low as reasonably achievable). FINDINGS: CT HEAD: There is cerebral atrophy. No evidence of space occupying lesion, hemorrhage, edema, mass effect, midline shift, extra axial collection, or hydrocephalus is noted. Basal cisterns are symmetric and normal in size and configuration. There are scattered periventricular hypodensities as can be seen with chronic microvascular ischemic changes. The verdin-white matter differentiation is preserved. Visualized paranasal sinuses and mastoid air cells are well aerated. Orbital contents are within normal limits. Bony structures are intact. CT ANGIOGRAPHY HEAD: Bilateral internal carotid arteries show normal course, calibre and opacification in the canalicular and cavernous part. Their division into the anterior cerebral artery and middle cerebral artery is defined. A1, A2 and M1, M2 segments are normal on both the sides. Bilateral vertebral arteries are seen to unite the form the basilar artery in a normal fashion. Basilar artery shows normal course, caliber and opacification. Its division into the posterior cerebral arteries is defined. Bilateral P1 and P2 segments are normal. Visualized venous structures show normal opacification. No evidence of intracranial aneurysm or AV malformation is seen. IMPRESSION: 1. No evidence of acute intracranial abnormality is demonstrated. 2. Chronic microvascular ischemic changes. 3. Mild Cerebral atrophy. 4. No evidence of stenosis or aneurysm. No evidence of dissection. Compared with previous scan CT HEAD WITHOUT CONTRAST- 07/27/2023, no significant change. Electronically Signed by: Sj Abreu MD. (02/02/2024 01:48:18 EDT)
[2024-02-02 02:06] LABS: Appearance Clear (Clear); Bacteria None Seen /HPF (None Seen); Bilirubin Negative (Negative); Blood Negative (Negative); Epithelial Cells None Seen /HPF (None Seen); Glucose, Urine Negative (Negative); Hyaline Casts NONE SEEN /LPF (0-2); Ketones 15 (Negative); Leukocyte Esterase Small (Negative); Nitrite Negative (Negative); Protein,Urine Dip Negative (Negative); RBC 0-2 /HPF (0-5); Specific Gravity >=1.030 (1.005-1.030); Urobilinogen 0.2 mg/dL (0.2)
[2024-02-02 02:07] LABS: ADD URINE CULTURE? NO (NO)
[2024-02-02 02:52] VITALS: BP 134/69; PULSE 64; RESP 16; O2SAT 97
--- NOTE | 2024-02-02 07:29 | XRAY ---
Indication: Chest pain 1 week. Impression: July 28, 2023 Portable chest remains clear again with right midlung calcified granuloma. Heart not enlarged again with small hiatal hernia. Bony thorax intact again with osteopenia, degenerative changes, and scoliosis. No new/acute findings.
[2024-02-02] MEDS ORDERED: hydroDIURIL 25 MG PO ONE (23:30)
== END 2024-02-02 02:53 | disposition home or self-care (01) ==
LOC: ED 22:49
DX: E87.1 Hypo-osmolality and hyponatremia (principal); I16.0 Hypertensive urgency; I11.0 Hypertensive heart disease with heart failure; I50.9 Heart failure, unspecified; E04.1 Nontoxic single thyroid nodule; R42 Dizziness and giddiness; R07.89 Other chest pain; R51.9 Headache, unspecified; H53.9 Unspecified visual disturbance; M54.2 Cervicalgia; M54.50 Low back pain, unspecified; Z79.899 Other long term (current) drug therapy
CPT/HCPCS: 36000; 36415; 70496; 70498; 71045; 71250; 80053; 81001; 82550; 83880; 84443; 84484; 85025; 93005; 93041; 96360; 96374; 99284; A9270-GY